=== PATIENT | female | born 1960 | race Caucasian/White ===

== ENCOUNTER → 2017-11-03 21:11 | Outpatient (CLI) | payer BC, SELFPAY ==
[2017-11-03 21:52] LABS: BUN 28 mg/dL (7-18); Creatinine, Serum 1.95 mg/dL (0.55-1.02); EST Glomerular Filtration Rate 28 mL/min (>60); Glucose 204 mg/dL (74-106)
[2017-11-03 21:53] LABS: ALB/GLOB Ratio 1.1 RATIO (0.9-2.4); AST(SGOT) 43 U/L (15-37); Alanine Aminotransfer ALT/SGPT 45 U/L (13-56); Albumin, Serum 3.8 g/dL (3.2-5.0); Alkaline Phosphatase 67 U/L (45-117); Anion Gap 11 (5-15); BUN/Creat Ratio 14.4 RATIO (10-20); Chloride 109 mmol/L (98-107); Cholesterol 195 mg/dL (200); Est Glom Filt Rate - Afr Amer 34 mL/min (>60); Globulin 3.5 g/dL (2.2-4.2); High Density Lipoprotein 32 mg/dL; Potassium 4.2 mmol/L (3.5-5.1); Protein, Total 7.3 g/dL (6.4-8.2); Sodium Level 145 mmol/L (136-145); Triglycerides 582 mg/dL
== END ==
PROVIDERS: Visit Provider Nurse Practitioner
DX: E78.00 Pure hypercholesterolemia, unspecified (principal); F41.9 Anxiety disorder, unspecified
CPT/HCPCS: 80053; 80061

== ENCOUNTER → 2018-05-14 21:46 | Outpatient (CLI) | payer BC, SELFPAY ==
[2017-11-03 18:29] VITALS: BMI 29.3
[2018-05-14 22:09] LABS: Cholesterol 197 mg/dL (200); High Density Lipoprotein 37 mg/dL; Triglycerides 349 mg/dL; Very Low Density Lipoprotein 70 mg/dL (5-40)
== END ==
PROVIDERS: Referring Provider Nurse Practitioner; Visit Provider Nurse Practitioner
DX: E78.1 Pure hyperglyceridemia (principal)
CPT/HCPCS: 80061

== ENCOUNTER → 2018-12-02 21:36 | Outpatient (CLI) | payer BC, SELFPAY ==
[2018-12-02 17:03] VITALS: BMI 29.4
[2018-12-02 21:43] LABS: Basophil# 0.03 X10^3/uL; Basophil% 0.5 % (0-1); Eosinophil# 0.43 X10^3/uL; Eosinophils% 7.8 % (0-5); Hematocrit 40.1 % (37-47); Hemoglobin 13.6 g/dL (12.0-15.0); Lymphocyte % 27.2 % (19-41); Mean Corp Hgb Conc 33.9 g/dL (32-36); Mean Corpuscular Hgb 34.6 pg (27.0-32.0); Mean Platelet Vol. 10.6 fl (6.2-12.0); Monocyte# 0.55 X10^3/uL; NRBC Flagged by Analyzer 0 % (0-5); Neutrophil % 54.3 % (47-70); Platelet Count 169 K/mm3 (150-450); RBC Distribution Width CV 12.5 % (11.6-14.6); RBC Distribution Width SD 47.3 fl (35.1-43.9); Red Blood Count 3.93 M/mm3 (4.2-5.4); White Blood Count 5.5 K/mm3 (4.4-11.0)
[2018-12-02 21:56] LABS: ALB/GLOB Ratio 1.1 RATIO (0.9-2.4); AST(SGOT) 42 U/L (15-37); Alanine Aminotransfer ALT/SGPT 43 U/L (13-56); Albumin, Serum 3.8 g/dL (3.2-5.0); Alkaline Phosphatase 61 U/L (45-117); Anion Gap 6 (5-15); BUN 23 mg/dL (7-18); BUN/Creat Ratio 11.7 RATIO (10-20); Calcium,Total 9.5 mg/dL (8.5-10.1); Chloride 105 mmol/L (98-107); Cholesterol 168 mg/dL (200); Creatinine, Serum 1.96 mg/dL (0.55-1.02); EST Glomerular Filtration Rate 28 mL/min (>60); Est Glom Filt Rate - Afr Amer 34 mL/min (>60); Globulin 3.6 g/dL (2.2-4.2); Glucose 125 mg/dL (74-106); High Density Lipoprotein 37 mg/dL; Potassium 4.4 mmol/L (3.5-5.1); Protein, Total 7.4 g/dL (6.4-8.2); Sodium Level 137 mmol/L (136-145); Triglycerides 245 mg/dL; Very Low Density Lipoprotein 49 mg/dL (5-40)
== END ==
PROVIDERS: Referring Provider Nurse Practitioner; Visit Provider Nurse Practitioner
DX: I10 Essential (primary) hypertension (principal); E78.5 Hyperlipidemia, unspecified
CPT/HCPCS: 80053; 80061; 85025

== ENCOUNTER → 2019-11-30 | Outpatient (CLI) | payer BC, SELFPAY ==
[2018-12-02 17:03] VITALS: BMI 29.4
[2019-11-30 21:40] LABS: Absolute Lymphocyte Count 1.28 X10^3/uL (0.83-4.51); Absolute Neutrophil Count 2.7 X10^3/uL (2.0-7.7); Basophil# 0.02 X10^3/uL; Basophil% 0.4 % (0-1); Eosinophil# 0.48 X10^3/uL; Eosinophils% 9.6 % (0-5); Hematocrit 37.7 % (37-47); Hemoglobin 12.8 g/dL (12.0-15.0); Lymphocyte # 1.28 X10^3/ul (4.0); Lymphocyte % 25.6 % (19-41); Mean Corpuscular Hgb 35.9 pg (27.0-32.0); Mean Corpuscular Volume 105.6 fL (81-99); Mean Platelet Vol. 10.5 fl (6.2-12.0); Monocyte# 0.52 X10^3/uL; Monocyte% 10.4 % (0-10); NRBC Flagged by Analyzer 0 % (0-5); Neutrophil # 2.69 X10^3/uL (2.7-7.7); Neutrophil % 53.8 % (47-70); Platelet Count 192 K/mm3 (150-450); RBC Distribution Width CV 12.7 % (11.6-14.6); RBC Distribution Width SD 49.3 fl (35.1-43.9); Red Blood Count 3.57 M/mm3 (4.2-5.4)
[2019-11-30 21:58] LABS: ALB/GLOB Ratio 1.1 RATIO (0.9-2.4); AST(SGOT) 49 U/L (15-37); Alanine Aminotransfer ALT/SGPT 47 U/L (13-56); Albumin, Serum 3.6 g/dL (3.2-5.0); Alkaline Phosphatase 52 U/L (45-117); Anion Gap 8 (5-15); BUN 16 mg/dL (7-18); BUN/Creat Ratio 9.3 RATIO (10-20); Calcium,Total 9.4 mg/dL (8.5-10.1); Chloride 108 mmol/L (98-107); Cholesterol 197 mg/dL (200); Creatinine, Serum 1.72 mg/dL (0.55-1.02); EST Glomerular Filtration Rate 32 mL/min (>60); Est Glom Filt Rate - Afr Amer 39 mL/min (>60); Globulin 3.3 g/dL (2.2-4.2); Glucose 110 mg/dL (74-106); High Density Lipoprotein 21 mg/dL; Potassium 4.3 mmol/L (3.5-5.1); Protein, Total 6.9 g/dL (6.4-8.2); Sodium Level 139 mmol/L (136-145); Triglycerides 467 mg/dL
== END | disposition home or self-care (01) ==
PROVIDERS: Visit Provider Nurse Practitioner
DX: I10 Essential (primary) hypertension (principal); E78.5 Hyperlipidemia, unspecified
CPT/HCPCS: 80053; 80061; 85025

== ENCOUNTER → 2020-03-13 | Outpatient (CLI) | payer BC, SELFPAY ==
[2020-03-13 15:53] VITALS: BMI 30.4
[2020-03-13 22:38] LABS: Absolute Lymphocyte Count 1.74 X10^3/uL (0.83-4.51); Absolute Neutrophil Count 2.5 X10^3/uL (2.0-7.7); Basophil# 0.03 X10^3/uL; Basophil% 0.6 % (0-1); Eosinophil# 0.39 X10^3/uL; Eosinophils% 7.4 % (0-5); Hematocrit 40.7 % (37-47); Hemoglobin 13.8 g/dL (12.0-15.0); Lymphocyte # 1.74 X10^3/ul (4.0); Mean Corp Hgb Conc 33.9 g/dL (32-36); Mean Corpuscular Hgb 35.8 pg (27.0-32.0); Mean Corpuscular Volume 105.4 fL (81-99); Mean Platelet Vol. 11.2 fl (6.2-12.0); Monocyte# 0.62 X10^3/uL; Monocyte% 11.8 % (0-10); NRBC Flagged by Analyzer 0 % (0-5); Neutrophil # 2.46 X10^3/uL (2.7-7.7); Neutrophil % 46.6 % (47-70); Platelet Count 171 K/mm3 (150-450); RBC Distribution Width CV 12.5 % (11.6-14.6); RBC Distribution Width SD 48.2 fl (35.1-43.9); Red Blood Count 3.86 M/mm3 (4.2-5.4); White Blood Count 5.3 K/mm3 (4.4-11.0)
[2020-03-13 23:09] LABS: ALB/GLOB Ratio 1.2 RATIO (0.9-2.4); AST(SGOT) 52 U/L (15-37); Alanine Aminotransfer ALT/SGPT 53 U/L (13-56); Albumin, Serum 3.7 g/dL (3.2-5.0); Alkaline Phosphatase 64 U/L (45-117); Anion Gap 8 (5-15); BUN 13 mg/dL (7-18); BUN/Creat Ratio 9.8 RATIO (10-20); Calcium,Total 9.6 mg/dL (8.5-10.1); Chloride 108 mmol/L (98-107); Cholesterol 151 mg/dL (200); Creatinine, Serum 1.32 mg/dL (0.55-1.02); EST Glomerular Filtration Rate 44 mL/min (>60); Est Glom Filt Rate - Afr Amer 53 mL/min (>60); Globulin 3.2 g/dL (2.2-4.2); Glucose 135 mg/dL (74-106); High Density Lipoprotein 27 mg/dL; Protein, Total 6.9 g/dL (6.4-8.2); Sodium Level 139 mmol/L (136-145); Triglycerides 328 mg/dL; Very Low Density Lipoprotein 66 mg/dL (5-40)
== END | disposition home or self-care (01) ==
PROVIDERS: Referring Provider Nurse Practitioner; Visit Provider Nurse Practitioner
DX: I10 Essential (primary) hypertension (principal); E78.5 Hyperlipidemia, unspecified
CPT/HCPCS: 80053; 80061; 85025

== ENCOUNTER → 2020-12-07 | Outpatient (CLI) | payer BC, SELFPAY ==
[2020-12-07 23:17] LABS: Absolute Lymphocyte Count 1.78 X10^3/uL (0.83-4.51); Absolute Neutrophil Count 3.6 X10^3/uL (2.0-7.7); Basophil# 0.04 X10^3/uL; Basophil% 0.6 % (0-1); Eosinophil# 0.39 X10^3/uL; Eosinophils% 6.1 % (0-5); Hematocrit 40.2 % (37-47); Hemoglobin 13.7 g/dL (12.0-15.0); Lymphocyte # 1.78 X10^3/ul (0.83-4.51); Lymphocyte % 27.9 % (19-41); Mean Corp Hgb Conc 34.1 g/dL (32-36); Mean Corpuscular Hgb 35.4 pg (27.0-32.0); Mean Corpuscular Volume 103.9 fL (81-99); Mean Platelet Vol. 11.2 fl (6.2-12.0); Monocyte# 0.58 X10^3/uL; Monocyte% 9.1 % (0-10); NRBC Flagged by Analyzer 0 % (0-5); Neutrophil # 3.56 X10^3/uL (2.7-7.7); Neutrophil % 55.8 % (47-70); Platelet Count 165 K/mm3 (150-450); RBC Distribution Width CV 12.4 % (11.6-14.6); RBC Distribution Width SD 47.1 fl (35.1-43.9); Red Blood Count 3.87 M/mm3 (4.2-5.4); White Blood Count 6.4 K/mm3 (4.4-11.0)
[2020-12-07 23:24] LABS: AST(SGOT) 57 U/L (15-37); Alanine Aminotransfer ALT/SGPT 44 U/L (13-56); Albumin, Serum 3.6 g/dL (3.2-5.0); Alkaline Phosphatase 60 U/L (45-117); Anion Gap 8 (5-15); BUN 17 mg/dL (7-18); BUN/Creat Ratio 11.6 RATIO (10-20); Calcium,Total 9.2 mg/dL (8.5-10.1); Chloride 109 mmol/L (98-107); Cholesterol 165 mg/dL (200); Creatinine, Serum 1.46 mg/dL (0.55-1.02); EST Glomerular Filtration Rate 39 mL/min (>60); Est Glom Filt Rate - Afr Amer 47 mL/min (>60); Globulin 3.5 g/dL (2.2-4.2); Glucose 127 mg/dL (74-106); High Density Lipoprotein 34 mg/dL; Potassium 3.7 mmol/L (3.5-5.1); Protein, Total 7.1 g/dL (6.4-8.2); Sodium Level 139 mmol/L (136-145); Triglycerides 299 mg/dL; Very Low Density Lipoprotein 60 mg/dL (5-40)
[2020-12-07 23:49] LABS: Hemoglobin A1c 5.2 % (3.8-5.6)
== END | disposition home or self-care (01) ==
PROVIDERS: PCP Nurse Practitioner; Referring Provider Nurse Practitioner; Visit Provider Nurse Practitioner
DX: I10 Essential (primary) hypertension (principal); E78.2 Mixed hyperlipidemia; R73.9 Hyperglycemia, unspecified
CPT/HCPCS: 80053; 80061; 83036; 85025

== ENCOUNTER → 2021-12-03 | Outpatient (CLI) | payer BC, SELFPAY ==
[2021-12-03 22:34] LABS: Absolute Lymphocyte Count 1.68 X10^3/uL (0.83-4.51); Basophil# 0.04 X10^3/uL; Basophil% 0.5 % (0-1); Eosinophil# 0.42 X10^3/uL; Eosinophils% 4.7 % (0-5); Hematocrit 40.2 % (37-47); Lymphocyte # 1.68 X10^3/ul (0.83-4.51); Mean Corp Hgb Conc 34.8 g/dL (32-36); Mean Corpuscular Hgb 36.4 pg (27.0-32.0); Mean Corpuscular Volume 104.4 fL (81-99); Mean Platelet Vol. 11.8 fl (6.2-12.0); Monocyte# 0.73 X10^3/uL; Monocyte% 8.2 % (0-10); NRBC Flagged by Analyzer 0 % (0-5); Neutrophil # 5.96 X10^3/uL (2.7-7.7); Neutrophil % 67.3 % (47-70); Platelet Count 178 K/mm3 (150-450); RBC Distribution Width CV 13.4 % (11.6-14.6); RBC Distribution Width SD 50.6 fl (35.1-43.9); Red Blood Count 3.85 M/mm3 (4.2-5.4); White Blood Count 8.9 K/mm3 (4.4-11.0)
[2021-12-03 22:52] LABS: ALB/GLOB Ratio 1.1 RATIO (0.9-2.4); AST(SGOT) 47 U/L (15-37); Alanine Aminotransfer ALT/SGPT 39 U/L (13-56); Alkaline Phosphatase 60 U/L (45-117); Anion Gap 10 (5-15); BUN 18 mg/dL (7-18); BUN/Creat Ratio 11.2 RATIO (10-20); Calcium,Total 11.7 mg/dL (8.5-10.1); Chloride 105 mmol/L (98-107); Cholesterol 187 mg/dL (200); Creatinine, Serum 1.61 mg/dL (0.55-1.02); EST Glomerular Filtration Rate 35 mL/min (>60); Est Glom Filt Rate - Afr Amer 42 mL/min (>60); Globulin 3.8 g/dL (2.2-4.2); Glucose 142 mg/dL (74-106); High Density Lipoprotein 34 mg/dL; Potassium 4.2 mmol/L (3.5-5.1); Protein, Total 7.8 g/dL (6.4-8.2); Sodium Level 139 mmol/L (136-145); Triglycerides 250 mg/dL; Very Low Density Lipoprotein 50 mg/dL (5-40)
== END | disposition home or self-care (01) ==
PROVIDERS: PCP Nurse Practitioner; Visit Provider Nurse Practitioner
DX: E78.2 Mixed hyperlipidemia (principal); I10 Essential (primary) hypertension
CPT/HCPCS: 80053; 80061; 85025

== ENCOUNTER → 2022-11-27 | Outpatient (CLI) | payer BC, SELFPAY ==
[2022-11-27 22:52] LABS: Absolute Neutrophil Count 4.5 X10^3/uL (2.0-7.7); Basophil# 0.04 X10^3/uL; Basophil% 0.5 % (0-1); Eosinophil# 0.66 X10^3/uL; Eosinophils% 8.6 % (0-5); Hematocrit 40.7 % (37-47); Hemoglobin 13.5 g/dL (12.0-15.0); Lymphocyte % 23.6 % (19-41); Mean Corp Hgb Conc 33.2 g/dL (32-36); Mean Corpuscular Volume 102.5 fL (81-99); Mean Platelet Vol. 11.3 fl (6.2-12.0); Monocyte# 0.58 X10^3/uL; Monocyte% 7.6 % (0-10); NRBC Flagged by Analyzer 0 % (0-5); Neutrophil # 4.51 X10^3/uL (2.7-7.7); Platelet Count 194 K/mm3 (150-450); RBC Distribution Width CV 12.2 % (11.6-14.6); RBC Distribution Width SD 45.8 fl (35.1-43.9); Red Blood Count 3.97 M/mm3 (4.2-5.4); White Blood Count 7.6 K/mm3 (4.4-11.0)
[2022-11-27 23:11] LABS: ALB/GLOB Ratio 1.2 RATIO (0.9-2.4); AST(SGOT) 56 U/L (15-37); Alanine Aminotransfer ALT/SGPT 47 U/L (13-56); Albumin, Serum 3.9 g/dL (3.2-5.0); Alkaline Phosphatase 73 U/L (45-117); Anion Gap 7 (5-15); BUN 14 mg/dL (7-18); BUN/Creat Ratio 10.4 RATIO (10-20); Calcium,Total 9.7 mg/dL (8.5-10.1); Chloride 105 mmol/L (98-107); Cholesterol 174 mg/dL (200); Creatinine, Serum 1.34 mg/dL (0.55-1.02); EST Glomerular Filtration Rate 43 mL/min (>60); Est Glom Filt Rate - Afr Amer 52 mL/min (>60); Globulin 3.3 g/dL (2.2-4.2); Glucose 133 mg/dL (74-106); High Density Lipoprotein 26 mg/dL; Potassium 4.8 mmol/L (3.5-5.1); Protein, Total 7.2 g/dL (6.4-8.2); Sodium Level 137 mmol/L (136-145); Triglycerides 357 mg/dL; Very Low Density Lipoprotein 71 mg/dL (5-40)
[2022-11-28 14:02] LABS: Hemoglobin A1c 5.5 % (3.8-5.6)
== END | disposition home or self-care (01) ==
PROVIDERS: PCP Nurse Practitioner; Referring Provider Nurse Practitioner; Visit Provider Nurse Practitioner
DX: Z00.00 Encounter for general adult medical examination without abnormal findings (principal); R73.9 Hyperglycemia, unspecified
CPT/HCPCS: 80053; 80061; 83036; 85025

== ENCOUNTER → 2023-05-11 | Outpatient (CLI) | payer BC, SELFPAY ==
[2023-05-11 22:22] LABS: Hemoglobin A1c 5.7 % (3.8-5.6)
[2023-05-11 22:30] LABS: ALB/GLOB Ratio 1.2 RATIO (0.9-2.4); AST(SGOT) 37 U/L (15-37); Alanine Aminotransfer ALT/SGPT 43 U/L (13-56); Albumin, Serum 3.9 g/dL (3.2-5.0); Alkaline Phosphatase 76 U/L (45-117); Anion Gap 7 (5-15); BUN 20 mg/dL (7-18); BUN/Creat Ratio 16.5 RATIO (10-20); CRP, High Sensitivity Cardiac 4.04 mg/L; Calcium,Total 9.3 mg/dL (8.5-10.1); Chloride 107 mmol/L (98-107); Creatinine, Serum 1.21 mg/dL (0.55-1.02); EST Glomerular Filtration Rate 48 mL/min (>60); Est Glom Filt Rate - Afr Amer 58 mL/min (>60); Globulin 3.2 g/dL (2.2-4.2); Glucose 205 mg/dL (74-106); Potassium 3.9 mmol/L (3.5-5.1); Protein, Total 7.1 g/dL (6.4-8.2); Sodium Level 138 mmol/L (136-145); Thyroid Stim Hormone (TSH) 2.06 uIU/mL (0.358-3.74); Troponin-I HS 7 pg/mL (3.0-54.0)
--- OUTSIDE RECORDS SUMMARY | 2023-05-12 00:30 | XMS RPT_ITS | CCD ---
Author Name Unknown Address [address] [place] [address] Organization [facility] Care Team Providers Care Smoking Tobacco Packing Machine Hand Name Role Phone Sohail ORDONEZ.Philippe ESCAMILLA Primary Care Provide r PHILIPPE SAUCEDA Referring Unavailable PHILIPPE SAUCEDA Primary Care Unavailable Allergies Allergy Classification Reported Allergen(s) Allergy Type Date of Onset Reaction(s) Facility (5 sources) Codeine; Translations: [CODEINE] Drug Allergy 8 GI Upset, Vomiting [facility] Work Phone: (5 sources) Sulfamethoxazole / Trimethoprim; Translations: [SULFAMETHOXAZOLE-TR IMETHOPRIM] Drug Allergy 6 GI Upset, Other: See Comments [facility] Medications Completed/Discontinued Medications Medication Drug Class(es) Dates Sig (Normalized) Sig (Original) aspirin 325 mg delayed release oral tablet (4 sources) Platelet Aggregation Inhibitor, Nonsteroidal Anti-inflammatory Drug Start: 08-11-2007 aspirin(ECOTRIN 325 MG TAB) Take one(1) tablet daily. 0 08/11/2007 Active Problems Problem Classification Problem Date Documented Da te Episodic/Chronic Coronary atherosclerosis and other heart disease (4 sources) Coronary arteriosclerosis; Translations: [Atherosclerotic heart disease of [place] coronary artery without angina pectoris] Onset: 4 03-11-2021 Chronic Diabetes mellitus without complication (4 sources) Type 2 diabetes mellitus; Translations: [Type 2 diabetes mellitus without complications] Onset: 9 03-11-2021 Chronic Disorders of lipid metabolism (4 sources) Hyperlipidemia; Translations: [Hyperlipidemia, unspecified] Onset: 1 07-03-2010 Chronic Esophageal disorders (4 sources) Gastroesophageal reflux disease; Translations: [Gastro-esophageal reflux disease without esophagitis] 07-03-2010 Chronic Essential hypertension (4 sources) Hypertensive disorder; Translations: [Essential (primary) hypertension] Onset: 1 07-03-2010 Chronic Nonmalignant breast conditions (4 sources) Fibrocystic disease of breast; Translations: [Diffuse cystic mastopathy of unspecified breast] Onset: 6 04-27-2015 Chronic Other gastrointestinal disorders (4 sources) Irritable bowel syndrome with diarrhea; Translations: [Irritable bowel syndrome with diarrhea] Onset: 1 07-03-2010 Chronic Other nutritional; endocrine; and metabolic disorders (4 sources) Hypomagnesemia; Translations: [Hypomagnesemia] Onset: 1 07-03-2010 Chronic Results Test Name Value Interpretation Reference Range Facil ity Encounters Encounter Date Encounter Type Care Provider Facility Start: 12-26-2022 Documentation procedure Mammog jorge l Coordinator [facility] Start: 12-26-2022 Letter encounter Mammography Coordinator [facility]CI[facility] AREA NOT LISTED Start: 12-25-2022 ambulatory PHILIPPE Najera ity:[facility] Start: 12-25-2022 End: 12-25-2022 Subsequent hospital visit by physician Mammo/Bone Density [facility] Procedures Date Procedure Procedure Detail Performing Clinician Start: 12-17-2021 Mammography Mammograph y Coordinator Start: 12-13-2020 [facility]ography [facility] Start: 10-14-2010 Colonoscopy [facility] Plan of Treatment Date Care Activity Detail Author Start: 12-26-2023 Mammography Mammogram Screening [facility] Start: 12-17-2022 Mammography [facility] Start: 11-14-2022 Covid-19 Vaccine ( season) Covid-19 Vaccine ( season) [facility] Start: 11-14-2022 Influenza vaccination Influenza Vacc ine (#1) [facility] Start: 03-16-2022 Depression Assessment Depression Ass essment [facility] Start: 12-13-2021 Mammography MAMMOGRAM [facility] Start: 11-14-2021 Influenza vaccination INFLUENZA (#1) [facility] Start: 03-16-2021 DEPRESSION ASSESSMENT DEPRESSION ASS ESSMENT [facility] Start: 2021 Hepatitis B Vaccine (1 of 3 - Risk 3-dose series) Hepatitis B Vaccine (1 of 3 - Risk 3-dose series) [facility] Start: 10-14-2020 Colonoscopy COLONOSCOPY [facility] Start: 10-14-2020 COLORECTAL CANCER SCREENING COLORECTAL CANCER SCREENING [facility] Start: 10-08-2020 COVID-19 VACCINE (3 - Booster for Moderna series) COVID-19 VACCINE (3 - Booster for Moderna series) [facility] Start: 09-19-2020 PAP TESTING PAP TESTING [facility] Start: 03-16-2018 Urine microalbumin profile [facility] Start: 05-06-2017 Hepatitis B surface antibody level LDL CHOLESTEROL [facility] Start: 11-03-2016 Hemoglobin A1c/Hemoglobin.total in Blood HBA1C [facility] Start: 09-22-2016 FECAL OCCULT BLOOD FECAL OCCULT BLOO D [facility] Start: 03-28-2016 Hepatitis C antibody , confirmatory test DILATED RETINAL EXAM [facility] Start: 05-28-2013 Hepatitis B screening URINE AL BUMIN:CREATININE RATIO [facility] Start: 2011 Influenza vaccination LUNG CANCER [facility] Start: 2011 SHINGRIX VACCINE (1 of 2) SHINGRIX V ACCINE (1 of 2) [facility] Start: 03-16-2010 PNEUMOCOCCAL (2 - PCV) PNEUMOCOCCAL (2 - PCV) [facility] Start: 03-16-2010 Pneumococcal vaccination Pneum ococcal Vaccine (2 - PCV) [facility] Start: 2006 COLOGUARD (FIT-DNA) COLOGUARD (FIT-D NA) [facility] Start: [address] COLONOGRAPHY [facility] Start: 2006 SIGMOIDOSCOPY SIGMOIDOSCOPY [facility] Start: 1991 HPV TESTING HPV TESTING [facility] Start: 1979 ANNUAL PCP TEAM BEAUTY SHOP MANAGER SUE DISEASE VISIT ANNUAL PCP TEAM CHRONIC DISEASE VISIT [facility] Start: 1979 BP CONTROLLED (<130/80) BP CONTROLLE D (<130/80) [facility] Start: 1979 HEPATITIS C SCREENING HEPATITIS C [facility] Start: 1979 HIV SCREENING HIV SCREENING [facility] Start: 1971 3 comp foot exam completed DIABETIC FOOT EXAM [facility] Start: 1971 Hepatitis B screening Urine Al bumin:Creatinine Ratio [facility] Immunizations Immunization Date Immunization Notes Care Provider Juliana traylormarshall 11-27-2014 influenza virus vacc ine, unspecified [facility] 2012 influenza virus vacc ine, unspecified formulation [facility] 03-16-2009 pneumococcal polysac charide vaccine, 23 valent [facility] 03-16-2008 tetanus toxoid, redu yani diphtheria toxoid, and acellular pertussis vaccine, adsorbed [facility] Payers Date Payer Category Payer Unknown [employer] PPO [id number] 2018-Present [phone] [address] [place] [address] PPO [id number] 2018 Unknown [id number] Social History Date Type Detail Facility Start: 03-16-1974 Tobacco smoking stat us AKIS Smokes tobacco daily [facility] Start: 03-16-1974 History of tobacco use Cigarette Smo ker [facility] Start: 12-04-2015 End: 12-25-2022 Cigarettes smoked current (pack per day) - Reported 1.5 [facility] Start: 12-04-2015 Tobacco use and exposure Smoke less tobacco non-user [facility] Start: 10-29-2021 Alcohol intake Current drinke r of alcohol (finding) [facility] Start: 06-29-2007 History SDOH Alcohol Comment WEEKLY [facility] Start: 03-19-2015 Tobacco Comment smokes 1 1/2 p pd since age 15 years [facility] Start: 1960 Sex Assigned At Not on file [facility] Start: 12-07-2021 End: 12-17-2021 Exposure to SARS-CoV-2 (event) Not sure [facility] Start: 10-29-2021 End: 12-25-2022 Tobacco use panel [facility] National Score (1-10 0), lower number is lower risk 51 [facility] Note 12-26-2022 Letter - Coordinator, Mammography - 12/26/2022 2:24 PM EDT Note Date & Type Note Facility 12-26-2022 Miscellaneous Notes Formattin g of this note might be different from the original. [facility] [address] [place] [address] December 26, 2022 PID: [id number] Alexa Salazar [address] [place] [address] Dear Ms. Salazar, We are pleased to inform you that the results of your recent breast imaging exam on 12/25/2022 are normal. Early detection of cancer is very important. We also understand recommendations regarding breast cancer screening are controversial. Please discuss with your primary care provider which strategy is best for you and whether a mammogram is right for you. Your imaging studies and report will be kept on file at [facility] as part of your permanent medical record and are available for your continuing care. Thank you for allowing us to help in meeting your health care needs. Sincerely, Dr. Davis Interpreting Radiologist [facility] (Normal over 40) documented in this encounter [facility] Progress note 12-25-2022 Note Date & Type Note Facility 12-25-2022 Note HNO ID: [id number] Author: Anika Amador RT(Po) Service: Radiology Author Type: Technologist Type: Progress Notes Filed: 12/25/2022 5:15 PM Note Text: Radiology Service Progress Note PATIENT NAME: Alexa Salazar DATE OF SERVICE: December 25, 2022 TIME: 5:15 PM PATIENT IDENTITY VERIFICATION COMPLETED USING TWO (2) IDENTIFIERS: Name and Date of confirmed by patient verbally. FALL SCREENING: Has the patient had 2 falls in the last year or 1 fall with injury or currently using an Ambulatory Assistive Device (Walker, Cane, Wheelchair, Crutches, etc.)? No PATIENT GENDER DATA: Female. status: : No status: N/A PATIENT RELEVANT IMPLANT DATA REVIEWED: Not Applicable RADIOLOGY DEPARTMENT: Mammography PERIPHERAL IV DATA: Not applicable SIGNED BY: RT Ines(Po) December 25, 2022 5:15 PM [facility] History of Present illness Narrative 12-25-2022 Anika Amador RT(R) - 12/25/2022 5:00 PM EDT Note Date & Type Note Facility 12-25-2022 History of Presen t illness Narrative Radiology Service Progress Note PATIENT NAME: Alexa Salazar DATE OF SERVICE: December 25, 2022 TIME: 5:15 PM PATIENT IDENTITY VERIFICATION COMPLETED USING TWO (2) IDENTIFIERS: Name and Date of confirmed by patient verbally. FALL SCREENING: Has the patient had 2 falls in the last year or 1 fall with injury or currently using an Ambulatory Assistive Device (Walker, Cane, Wheelchair, Crutches, etc.)? No PATIENT GENDER DATA: Female. status: : No status: N/A PATIENT RELEVANT IMPLANT DATA REVIEWED: Not Applicable RADIOLOGY DEPARTMENT: Mammography PERIPHERAL IV DATA: Not applicable SIGNED BY: RT Ines(Po) December 25, 2022 5:15 PM documented in this encounter [facility] Note 12-18-2021 Letter - Mammography Coordinator - 12/18/2021 10:49 AM EDT Note Date & Type Note Facility 12-18-2021 Miscellaneous Notes Formattin g of this note might be different from the original. [address] [address] December 18, 2021 PID: [id number] Alexa Salazar [address] [place] [address] Dear Ms. Salazar, We are pleased to inform you that the results of your recent breast imaging exam on 12/17/2021 are normal. Early detection of cancer is very important. We also understand recommendations regarding breast cancer screening are controversial. Please discuss with your primary care provider which strategy is best for you and whether a mammogram is right for you. Your imaging studies and report will be kept on file at [facility] as part of your permanent medical record and are available for your continuing care. Thank you for allowing us to help in meeting your health care needs. Sincerely, Dr. Quinn Interpreting Radiologist [facility] (Normal over 40) documented in this encounter [facility] History of Present illness Narrative 12-17-2021 JEFRY Chacon) - 12/17/2021 4:30 PM EDT Note Date & Type Note Facility 12-17-2021 History of Presen t illness Narrative Radiology Service Progress Note PATIENT NAME: Alexa Salazar DATE OF SERVICE: December 17, 2021 TIME: 4:51 PM PATIENT IDENTITY VERIFICATION COMPLETED USING TWO (2) IDENTIFIERS: Name and Date of confirmed by patient verbally. FALL SCREENING: Has the patient had 2 falls in the last year or 1 fall with injury or currently using an Ambulatory Assistive Device (Walker, Cane, Wheelchair, Crutches, etc.)? No PATIENT GENDER DATA: Female. status: : No status: N/A PATIENT RELEVANT IMPLANT DATA REVIEWED: Not Applicable RADIOLOGY DEPARTMENT: Mammography PERIPHERAL IV DATA: Not applicable SIGNED BY: JEFRY Cahcon) December 17, 2021 4:51 PM documented in this encounter [facility] Progress note 12-13-2020 Note Date & Type Note Facility 12-13-2020 Note HNO ID: [id number] Author: RT Chacon (R) Service: ? Author Type: Technologist Type: Progress Notes Filed: 12/13/2020 3:51 PM Note Text: Radiology Service Progress Note PATIENT NAME: Alexa Salazar DATE OF SERVICE: December 13, 2020 TIME: 3:51 PM PATIENT IDENTITY VERIFICATION COMPLETED USING TWO (2) IDENTIFIERS: Name and Date of confirmed by patient verbally. FALL SCREENING: Has the patient had 2 falls in the last year or 1 fall with injury or currently using an Ambulatory Assistive Device (Walker, Cane, Wheelchair, Crutches, etc.)? No PATIENT GENDER DATA: Female. status: : No status: N/A PATIENT RELEVANT IMPLANT DATA REVIEWED: Not Applicable RADIOLOGY DEPARTMENT: Mammography PERIPHERAL IV DATA: Not applicable SIGNED BY: JEFRY Chacon) December 13, 2020 3:51 PM [facility] Summary Purpose Family History No Family History Records FoundNo Family History Records FoundNo Family History Records Found [place] Directives No Advanced Directives Records FoundNo Advanced Directives Records FoundNo Advanced Directives Records Found Additional Source Comments INFORMATION SOURCE (unrecogn ized section and content) DATE CREATED AUTHOR AUTHOR'S ORGANIZ ATION 04/09/2021 [facility] DATE CREATED AUTHOR AUTHOR'S ORGANIZ ATION 12/31/2022 [facility] Source Comments (unrecognize d section and content) In the event this informatio n is protected by the Federal Confidentiality of Alcohol and Drug Abuse Patient Records regulations: The Federal rules restrict any use of the information to criminally investigate or prosecute any alcohol or drug abuse patient.[facility] the event this information is protected by the Federal Confidentiality of Alcohol and Drug Abuse Patient Records regulations: The Federal rules restrict any use of the information to criminally investigate or prosecute any alcohol or drug abuse patient.[facility] the event this information is protected by the Federal Confidentiality of Alcohol and Drug Abuse Patient Records regulations: The Federal rules restrict any use of the information to criminally investigate or prosecute any alcohol or drug abuse patient.[facility] the event this information is protected by the Federal Confidentiality of Alcohol and Drug Abuse Patient Records regulations: The Federal rules restrict any use of the information to criminally investigate or prosecute any alcohol or drug abuse patient.[facility] Care Teams (unrecognized sec tion and content) Smoking Tobacco Packing Machine Hand Relationship Specialty Start Date End Date Philippe Sauceda, TECHNICAL SERVICE REPRESENTATIVE.TEST PULLER [address] [place], [place] [id number] PCP - General Family Medicine 10/27/17 Smoking Tobacco Packing Machine Hand Relationship Specialty Start Date End Date Philippe Sauceda, TECHNICAL SERVICE REPRESENTATIVE.TEST PULLER [address] [place] [address] PCP - General Family Medicine 10/27/17 Smoking Tobacco Packing Machine Hand Relationship Specialty Start Date End Date Philippe Sauceda, TECHNICAL SERVICE REPRESENTATIVE.TEST PULLER [address] [place], [place] [id number] PCP - General Family Medicine 10/27/17 FOR RECORDS PERTAINING TO PATIENTS WHO ARE OR HAVE BEEN ENROLLED IN A CHEMICAL DEPENDENCY/SUBSTANCEABUSE PROGRAM, SOME INFORMATION MAY BE OMITTED. This clinical summary was aggregated from multiple sources. Caution should be exercised in using it in the provision of clinical care. This summary normalizes information from multiple sources, and as a consequence, information in this document may materially change the coding, format and clinical context of patient data. In addition, data may be omitted in some cases. CLINICAL DECISIONS SHOULD BE BASED ON THE PRIMARY CLINICAL RECORDS. [facility]. provides no warranty or guarantee of the accuracy or completeness of information in this document.
== END | disposition home or self-care (01) ==
PROVIDERS: PCP Nurse Practitioner; Visit Provider Nurse Practitioner
DX: R07.9 Chest pain, unspecified (principal); R10.13 Epigastric pain
CPT/HCPCS: 80053; 83036; 84443; 84484; 86141

== ENCOUNTER → 2023-11-12 | Outpatient (CLI) | payer BC, SELFPAY | END | disposition home or self-care (01) | PROVIDERS: PCP Nurse Practitioner; Referring Provider Nurse Practitioner; Visit Provider Nurse Practitioner | DX: N30.90 Cystitis, unspecified without hematuria (principal) | CPT/HCPCS: 87086; 87088 ==

== ENCOUNTER → 2023-12-10 | Outpatient (CLI) | payer BC, SELFPAY ==
[2023-12-10 21:56] LABS: Absolute Lymphocyte Count 2.46 X10^3/uL (0.83-4.51); Absolute Neutrophil Count 6.2 X10^3/uL (2.0-7.7); Basophil# 0.07 X10^3/uL; Basophil% 0.7 % (0-1); Eosinophil# 0.84 X10^3/uL; Eosinophils% 8.1 % (0-5); Hematocrit 41.6 % (37-47); Hemoglobin 14.4 g/dL (12.0-15.0); Lymphocyte # 2.46 X10^3/ul (0.83-4.51); Lymphocyte % 23.8 % (19-41); Mean Corp Hgb Conc 34.6 g/dL (32-36); Mean Corpuscular Hgb 33.7 pg (27.0-32.0); Mean Corpuscular Volume 97.4 fL (81-99); Mean Platelet Vol. 10.8 fl (6.2-12.0); Monocyte# 0.73 X10^3/uL; Monocyte% 7.1 % (0-10); NRBC Flagged by Analyzer 0 % (0-5); Neutrophil # 6.17 X10^3/uL (2.7-7.7); Neutrophil % 59.8 % (47-70); Platelet Count 216 K/mm3 (150-450); RBC Distribution Width CV 12.3 % (11.6-14.6); RBC Distribution Width SD 43.8 fl (35.1-43.9); Red Blood Count 4.27 M/mm3 (4.2-5.4); White Blood Count 10.3 K/mm3 (4.4-11.0)
[2023-12-10 22:17] LABS: Hemoglobin A1c 5.3 % (3.8-5.6)
[2023-12-10 22:22] LABS: ALB/GLOB Ratio 1.1 RATIO (0.9-2.4); AST(SGOT) 50 U/L (15-37); Alanine Aminotransfer ALT/SGPT 49 U/L (13-56); Albumin, Serum 3.9 g/dL (3.2-5.0); Alkaline Phosphatase 74 U/L (45-117); Anion Gap 7 (5-15); BUN 13 mg/dL (7-18); BUN/Creat Ratio 12.4 RATIO (10-20); Chloride 103 mmol/L (98-107); Cholesterol 212 mg/dL (200); Creatinine, Serum 1.05 mg/dL (0.55-1.02); EST Glomerular Filtration Rate 56 mL/min (>60); Est Glom Filt Rate - Afr Amer 68 mL/min (>60); Globulin 3.4 g/dL (2.2-4.2); Glucose 123 mg/dL (74-106); High Density Lipoprotein 33 mg/dL; Magnesium 1.5 mg/dL (1.6-2.6); Potassium 3.9 mmol/L (3.5-5.1); Protein, Total 7.3 g/dL (6.4-8.2); Sodium Level 138 mmol/L (136-145); Triglycerides 462 mg/dL
== END | disposition home or self-care (01) ==
LOC: LABSPEC 21:29
PROVIDERS: PCP Nurse Practitioner; Visit Provider Nurse Practitioner
DX: Z00.00 Encounter for general adult medical examination without abnormal findings (principal)
CPT/HCPCS: 80053; 80061; 83036; 83735; 85025

== ENCOUNTER → 2024-11-30 | Outpatient (CLI) | payer BC, SELFPAY ==
--- OUTSIDE RECORDS SUMMARY | 2024-11-30 21:46 | XMS RPT_ITS | CCD ---
Author Organization [facility] Inform ion [facility] Care Team Providers Care Scientist Immunology Name Role Phone Sohail OFFICE SERVICES MANAGER.OUTSOLE PARAFFINER, Philippe L Primary Care Provide r Dai TOLL GATE TENDER, Philippe Primary Care Unavailable Dai TOLL GATE TENDER, Philippe Referring Unavailable Dai TOLL GATE TENDER, Philippe Attending Unavailable Dai TOLL GATE TENDER, Philippe Attending Unavailable Dai TOLL GATE TENDER, Philippe Primary Care Unavailable Dai TOLL GATE TENDER, Philippe Primary Care Unavailable Dai TOLL GATE TENDER, Philippe Attending Unavailable Dai OFFICE SERVICES MANAGER.OUTSOLE PARAFFINER, Philippe L Primary Care Provide r DAI, PHILIPPE L Referring Unavailable DAI, PHILIPPE L Primary Care Unavailable ALEXA USAREZ Attending Unavailable DAI, PHILIPPE L Primary Care Unavailable DAI, PHILIPPE L Referring Unavailable ALEXA SUAREZ Referring Unavailable ADI, PHILIPPE L Primary Care Unavailable DAI, PHILIPPE L Referring Unavailable DAI, PHILIPPE L Primary Care Unavailable DAI, PHILIPPE L Primary Care Unavailable DAI, PHILIPPE L Primary Care Unavailable DAI, PHILIPPE L Primary Care Unavailable GEORGE PRESSLEY Attending Unavailable GEORGE PRESSLEY Referring Unavailable DAI, PHILIPPE L Primary Care Unavailable DAI, PHILIPPE L Primary Care Unavailable GEORGE PRESSLEY Attending Unavailable Allergies Allergy Classification Reported Allergen(s) Allergy Type Date of Onset Reaction(s) Facility (18 sources) Codeine; Translations: [CODEINE] Drug Allergy 08-11-19 08 GI Upset, Vomiting [facility] Work Phone: (3 sources) Sulfamethoxazole Drug Allergy 11-04-19 18 dizzy,faint,vo [facility] (3 sources) Sulfonamides (Antibiotic) Propensity to adverse reactions 11-04-19 18 unknown [facility] (3 sources) Trimethoprim Drug Allergy 11-04-19 18 dizzy,faint,vo [facility] (15 sources) Sulfamethoxazole / Trimethoprim; Translations: [SULFAMETHOXAZOLE-T RIMETHOPRIM] Drug Allergy 04-27-19 16 GI Upset, Other: See Comments [facility] (1 source) lamoTRIgine Drug Allergy 05-12-19 24 anxiety and insomnia [facility] (1 source) Ciprofloxacin Drug Allergy 11-12-19 24 [facility] (1 source) Codeine Drug Allergy 12-02-19 22 [facility] (1 source) lamoTRIgine Drug Allergy 05-12-19 24 [facility] (1 source) Sulfamethoxazole Drug Allergy 11-04-19 18 [facility] (1 source) Sulfonamides (Antibiotic) Drug allergy (disorder) 11-04-19 [facility] (1 source) Trimethoprim Drug Allergy 11-04-19 [facility] Medications Current Medications Medication Drug Class(es) Dates Sig (Normalized) Sig (Original) aspirin 325 mg oral tablet (16 sources) Platelet Aggregation Inhibitor, Nonsteroidal Anti-inflammatory Drug Start: 11-03-2017 Aspirin Active PO daily November 02, 2017 11:00pm Start: 08-11-2007 aspirin(ECOTRI N 325 MG TAB) Take one(1) tablet daily. 0 08/11/2007 Active Comment on above: Take one(1) tablet d aily. atorvastatin 80 mg oral tablet (20 sources) HMG-CoA Reductase Inhibitor Start: 6 End: 3 take 1 tablet by mouth once daily atorvastatin (LIPITOR) 80 mg tablet Take 1 tablet by mouth once daily. 90 tablet 2 02/26/2016 Active Comment on above: Take 1 tablet by lizzette once daily. calcium carbonate 750 mg chewable tablet (16 sources) Start: 8 take 1 tablet by mouth twice daily Calcium Carbonate (Tums E-X) 300 mg (750 mg) tablet,chewable Active 300 MG PO TWICE A DAY November 02, 2017 11:00pm take 750 mg by mouth three times daily CALCIUM CARBONATE (TUMS 500 ORAL) Take 750 mg by mouth three times daily. Active Comment on above: Take 750 mg by mouth three times daily. cholecalciferol 0.025 mg oral capsule (16 sources) Vitamin D Start: 11-04-19 18 Cholecalciferol (Vitamin D3) Active PO November 02, 2017 11:00pm Comment on above: Take 1,000 Units by mouth twice daily. cyclobenzaprine hydrochloride 10 mg oral tablet (13 sources) Muscle Relaxant Start: 04-15-19 17 take 1 tablet by mouth twice daily as needed cyclobenzaprine (FLEXERIL) 10 mg tablet Indications: Radiculopathy, cervical region Take 1 tablet by mouth twice daily as needed. 60 tablet 1 04/15/2016 Active Comment on above: Take 1 tablet by lizzette twice daily as needed. diphenhydrAMINE-maalox- lidocaine (BMX 1:1:1) 1:1:1 liqd (1 source) Start: 10-22-19 25 diphenhydrAMINE-maalox -lidocaine (BMX 1:1:1) 1:1:1 liqd Swish, gargle, and spit one to two teaspoonfuls every six hours as needed. Shake well before using. 500 mL 3 10/21/2024 Active famotidine 40 mg oral tablet (14 sources) Histamine-2 Receptor Antagonist Start: 03-02-20 24 famotidine (PEPCID) 40 mg tablet once daily. 03/02/2024 Active Start: 12-21-2018 End: 11-27-2022 take 40 mg by mouth once daily Famotidine Discontinued 40 MG PO DAILY December 07, 2020 4:36pm November 27, 2022 5:16pm Start: 12-20-2018 End: 12-21-2018 take 40 mg by mouth twice daily Famotidine Discontinued 40 MG PO TWICE A DAY 180 December 19, 2018 11:00pm December 21, 2018 11:02am fluticasone propionate 0.05 mg/actuat metered dose nasal spray (1 source) Corticosteroid Start: 11-28-2024 take 1 spray(s) nasal route twice daily fluticasone (FLONASE) 50 mcg/actuation nasal spray Use 1 spray in each nostril two times a day. 48 g 3 11/28/2024 Active hydrOXYzine hydrochloride 10 mg oral tablet (4 sources) Antihistamine Start: 12-03-2021 End: 05-11-2023 take 10 mg by mouth three to four times daily Hydroxyzine Hcl Active 10 MG PO 3 to 4 times per day 120 May 11, 2023 8:05pm ibuprofen 600 mg oral tablet (13 sources) Nonsteroidal Anti-inflammatory Drug Start: 04-15-2016 take 1 tablet by mouth every six hours as needed for pain ibuprofen (MOTRIN) 600 mg tablet Indications: Radiculopathy, cervical region Take 1 tablet by mouth every 6 hours as needed for Pain. 90 tablet 3 04/15/2016 Active Comment on above: Take 1 tablet by lizzette th every 6 hours as needed for Pain. 24 hr isosorbide mononitrate 30 mg extended release oral tablet (20 sources) Nitrate Vasodilator Start: 03-11-2016 End: 11-27-2022 take 1 tablet by mouth once daily isosorbide mononitrate ER (IMDUR) 30 mg 24 hr tablet Take 1 tablet by mouth once daily. 90 tablet 1 03/11/2016 Active Comment on above: Take 1 tablet by lizzette th once daily. iv contrast (will be provided with radiology test) (1 source) Start: 11-28-2024 End: 11-28-2024 inject 1 dose intravenously once, then inject 1 dose intravenously once iv contrast (will be provided with radiology test) Inject 1 each intravenously one time only for [address] Neck W IVCON No IV access, insert saline lock prior to the sedation, infusion, injection for imaging exam. Discontinue saline lock post exam. If Pt. has a central line or IVAD, may access for administration according to line specific nursing protocol. Once exam is complete flush line and de-access according to line specific nursing protocol in the CT contrast administration guidelines link. 1 each 11/28/2024 11/28/2024 Active lisinopril 20 mg oral tablet (13 sources) Angiotensin Converting Enzyme Inhibitor Start: 02-26-2016 take 1 tablet by mouth once daily lisinopril (ZESTRIL, PRINIVIL) 20 mg tablet Take 1 tablet by mouth once daily. 90 tablet 2 02/26/2016 Active Comment on above: Take 1 tablet by lizzette th once daily. losartan potassium 100 mg oral tablet (16 sources) Angiotensin 2 Receptor Jesse Start: 03-01-2024 losartan (COZAAR) 100 mg tablet once daily. 03/01/2024 Active Start: 03-13-2020 End: 11-27-2022 take 100 mg by mouth once daily Losartan Discontinued 100 MG PO daily 90 90 December 03, 2021 4:22pm November 27, 2022 5:11pm Start: 11-30-2019 End: 02-28-2020 take 100 mg by mouth once daily Losartan Discontinued 100 MG PO daily 90 November 29, 2019 11:00pm February 28, 2020 12:02am Magnesium (17 sources) Start: 05-11-2023 Magnesium Acti ve 500 MG PO May 11, 2023 7:50pm Start: 11-03-2017 End: 05-11-2023 Magnesium Discontinued PO 2017 11:00pm May 11, 2023 7:50pm Start: 11-03-2017 Magnesium Acti ve PO November 03, 2017 12:00am take 2 tablets by mo ut once daily Magnesium 250 mg tab Take 500 mg by mouth once daily. Active take 2 tablets by mo uth once daily Magnesium 250 mg tab Take 500 mg by mouth once daily. 0 Active Comment on above: Take 500 mg by mouth once daily. 24 hr metoprolol succinate 100 mg extended release oral tablet (20 sources) beta-Adrenergic Jesse Start: 02-26-2016 End: 11-27-2022 take 1 tablet by mouth once daily metoprolol succinate ER (TOPROL XL) 100 mg Tb24 Take 1 tablet by mouth once daily. 90 tablet 2 02/26/2016 Active Comment on above: Take 1 tablet by lizzette once daily. multivitamin capsule (3 sources) Start: 11-03-2017 multivitamin capsule Active PO November 02, 2017 11:00pm Start: 11-03-2017 multivitamin c apsule Active PO November 03, 2017 12:00am MULTIVITAMIN TAB (13 sources) Start: 06-29-2007 MULTIVITAMIN T AB Take one(1) tablet daily. 0 06/29/2007 Active Comment on above: Take one(1) tablet d aily. niacin 500 mg extended release oral capsule (16 sources) Nicotinic Acid Start: 11-03-2017 niacin ER 500 mg capsule,extended release Active PO November 02, 2017 11:00pm Start: 09-10-2015 niacin ER (DOMITILA SPAN) 500 mg tablet 09/10/2015 Active [place]-3 Fatty Acids (Fish Oi l Concentrate) 1,000 mg capsule (3 sources) Start: 11-03-2017 [place]-3 Fatty Acids (Fish Oil Concentrate) 1,000 mg capsule Active PO November 02, 2017 11:00pm Start: 11-03-2017 [place]-3 Fatty Acids (Fish Oil Concentrate) 1,000 mg capsule Active PO November 03, 2017 12:00am omega-3 fatty acids(FISH OIL 500 MG CAP) (13 sources) Start: 08-11-2007 omega-3 fatty acids(FISH OIL 500 MG CAP) Take 4 capsule daily. 0 08/11/2007 Active Comment on above: Take 4 capsule daily . omeprazole 40 mg delayed release oral capsule (1 source) Proton Pump Inhibitor Start: 10-21-2024 take 1 capsule by mouth once daily at bedtime omeprazole (PRILOSEC) 40 mg capsule Take 1 capsule by mouth daily at bedtime. 90 capsule 10/21/2024 Active predniSONE 20 mg oral tablet (1 source) Start: 05-11-2023 take 40 mg by mouth once daily Prednisone Active 40 MG PO DAILY May 11, 2023 12:00am vitamin b12 1 mg oral tablet (2 sources) Vitamin B12 take 1 tablet by mouth once daily cyanocobalamin (VITAMIN B-12) 1,000 mcg tab Take 1,000 mcg by mouth once daily. Active Completed/Discontinued Medications Medication Drug Class(es) Dates Sig (Normalized) Sig (Original) amoxicillin 875 mg / clavulanate 125 mg oral tablet (8 sources) Penicillin-class Antibacterial Start: 09-04-2022 End: 11-27-2022 take 1 tablet by mouth twice daily Amoxicillin-Pot Clavulanate Discontinued 1 TABLET PO TWICE A DAY September 03, 2022 11:00pm November 27, 2022 5:03pm Start: 11-13-2020 End: 12-07-2020 take 1 tablet by mouth twice daily Amoxicillin-Pot Clavulanate Discontinued 1 TABLET PO TWICE A DAY November 12, 2020 11:00pm December 07, 2020 4:34pm Start: 09-10-2018 End: 12-02-2018 take 1 tablet by mouth twice daily Amoxicillin-Pot Clavulanate Discontinued 1 TABLET PO TWICE A DAY September 09, 2018 11:00pm December 02, 2018 4:07pm fenofibrate 160 mg oral tablet (20 sources) Peroxisome Proliferator Receptor alpha Agonist Start: 11-03-2017 End: 11-03-2017 fenofibrate 160 mg tablet Discontinued PO daily November 02, 2017 11:00pm November 03, 2017 5:46pm Start: 02-26-2016 End: 11-27-2022 take 1 tablet by mouth once daily Fenofibrate (LOFIBRA) 160 mg tablet Take 1 tablet by mouth once daily. 90 tablet 2 02/26/2016 Active Comment on above: Take 1 tablet by lizzette th once daily. hydroCHLOROthiazide 12.5 mg / lisinopril 20 mg oral tablet (9 sources) Thiazide Diuretic, Angiotensin Converting Enzyme Inhibitor Start: 018 End: 020 take 1 tablet by mouth once daily Lisinopril-Hydrochl orothiazide Discontinued 1 TABLET PO daily December 02, 2018 4:10pm March 13, 2020 3:56pm 24 hr lamoTRIgine 100 mg extended release oral tablet (4 sources) Mood Stabilizer, Anti-epileptic Agent Start: 023 End: 024 take 100 mg by mouth once daily Lamotrigine Discontinued 100 MG PO DAILY November 27, 2022 5:18pm May 11, 2023 7:49pm latanoprost 0.05 mg/ml ophthalmic solution (20 sources) Prostaglandin Analog Start: End: 023 Latanoprost Discontinued 1 DRP OPHTHALMIC EVERY EVENING 7.5 October 16, 2021 3:33pm November 27, 2022 5:17pm 1 gtt to each eye at bedtime take 1 drop(s) into the eye(s) once daily at bedtime latanoprost (XALATAN) 0.005 % ophthalmic solution Use 1 Drop in both eyes daily at bedtime. 0 Active Comment on above: Use 1 Drop in both e yes daily at bedtime. Lidocaine (1 source) Antiarrhythmic, Amide Local Anesthetic Start: 03-18-19 End: 03-18-19 OTHER, NEEDED, Starting on Thu03/18/24 at 1358, Until Thu03/18/24 at 1358, Intraprocedure pantoprazole 40 mg delayed release oral tablet (8 sources) Proton Pump Inhibitor Start: 12-04-19 End: 11-28-19 23 take 40 mg by mouth once daily Pantoprazole Discontinued 40 MG PO DAILY December 03, 2021 4:22pm November 27, 2022 5:11pm QUEtiapine 100 mg oral tablet (20 sources) Atypical Antipsychotic Start: 11-28-19 End: 11-28-19 take 0.05 mg by mouth once daily Quetiapine Discontinued 0.05 MG PO DAILY November 27, 2022 5:07pm November 27, 2022 5:16pm Start: 03-13-2020 End: 11-27-2022 take 100 mg by mouth once daily Quetiapine Discontinue d 100 MG PO DAILY December 03, 2021 4:22pm November 27, 2022 5:07pm Start: 11-03-2017 End: 03-13-2020 take 50 mg by mouth once daily in the evening Quetiapine Discontinued 50 MG PO EVERY EVENING November 30, 2019 3:13pm March 13, 2020 3:59pm raNITIdine 300 mg oral tablet (20 sources) Histamine-2 Receptor Antagonist Start: 11-03-2017 End: 11-03-2017 Ranitidine Hcl Discontinued PO TWICE A DAY November 03, 2017 5:41pm November 03, 2017 5:46pm Start: 11-03-2017 End: 11-03-2017 Ranitidine Hcl Discontinued PO TWICE A DAY November 03, 2017 6:41pm November 03, 2017 6:46pm Start: 11-03-2017 End: 11-03-2017 Ranitidine Hcl Discontinued PO November 02, 2017 11:00pm November 03, 2017 5:41pm Start: 11-03-2017 End: 11-03-2017 Ranitidine Hcl Discontinued PO November 03, 2017 12:00am November 03, 2017 6:41pm Start: 11-03-2017 End: 12-21-2018 take 300 mg by mouth twice daily Ranitidine Hcl Discontinued 300 MG PO TWICE A DAY 180 December 02, 2018 5:11pm December 21, 2018 12:01pm Start: 02-26-2016 End: 03-30-2024 take 1 tablet by mouth twice daily Ranitidine HCl (ZANTAC) 300 mg tablet Take 1 tablet by mouth twice daily. 180 tablet 2 02/26/2016 03/30/2024 Discontinued Comment on above: Take 1 tablet by lizzette th twice daily. Problems Active Problems Problem Classification Problem Date Documented Da te Episodic/Chronic Abdominal pain (1 source) Epigastric pain; Translations: [Epigastric pain] 05-11-2023 Episodic Anxiety disorders (10 sources) Anxiety; Translations: [Anxiety disorder, unspecified] 12-02-2018 Chronic Coronary atherosclerosis and other heart disease (13 sources) Coronary arteriosclerosis; Translations: [Atherosclerotic heart disease of [place] coronary artery without angina pectoris] Onset: 4 03-11-2021 Chronic Diabetes mellitus without complication (13 sources) Type 2 diabetes mellitus; Translations: [Type 2 diabetes mellitus without complications] Onset: 9 03-11-2021 Chronic Diabetes mellitus without complication (2 sources) Hyperglycemia; Translations: [Hyperglycemia, unspecified] 11-28-2022 Episodic Diseases of mouth; excluding dental (4 sources) Abscess of oral tissue; Translations: [Cellulitis and abscess of mouth] Onset: 5 09-04-2022 Episodic Disorders of lipid metabolism (16 sources) Hyperlipidemia; Translations: [Hyperlipidemia, unspecified] Onset: 1 07-03-2010 Chronic Disorders of teeth and jaw (2 sources) Torus palatinus; 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] 09-04-2022 Episodic Esophageal disorders (15 sources) Gastroesophageal reflux disease; Translations: [Gastro-esophageal reflux disease without esophagitis] Onset: 1 07-03-2010 Chronic Essential hypertension (16 sources) Hypertensive disorder; Translations: [Essential (primary) hypertension] Onset: 1 07-03-2010 Chronic Intestinal infection (2 sources) Viral gastroenteritis; Translations: [Viral intestinal infection, unspecified] 09-04-2022 Episodic Lymphadenitis (3 sources) Localized enlarged lymph nodes; Translations: [Localized enlarged lymph nodes] Onset: 5 11-28-2024 Episodic Nonmalignant breast conditions (13 sources) Fibrocystic disease of breast; Translations: [Diffuse cystic mastopathy of unspecified breast] Onset: 6 04-27-2015 Chronic Nonmalignant breast conditions (1 source) Unspecified lump in the right breast, unspecified quadrant; Translations: [Unspecified lump in the right breast, unspecified quadrant] Onset: 4 Episodic Other diseases of kidney and ureters (3 sources) Renal impairment; Translations: [Disorder of kidney and ureter, unspecified] 03-13-2020 Episodic Other ear and sense organ disorders (1 source) Tinnitus of right ear; Translations: [Tinnitus, right ear] 11-28-2024 Episodic Other ear and sense organ disorders (1 source) Tinnitus, right ear; Translations: [Tinnitus of right ear] Onset: 5 Episodic Other gastrointestinal disorders (13 sources) Irritable bowel syndrome with diarrhea; Translations: [Irritable bowel syndrome with diarrhea] Onset: 1 07-03-2010 Chronic Other nutritional; endocrine; and metabolic disorders (13 sources) Hypomagnesemia; Translations: [Hypomagnesemia] Onset: 1 07-03-2010 Chronic Other screening for suspected conditions (not mental disorders or infectious disease) (9 sources) Patient encounter status; Translations: [Encounter for screening mammogram for malignant neoplasm of breast] Onset: 4 10-29-2018 Episodic Other upper respiratory disease (2 sources) Sore throat - chronic; Translations: [Chronic pharyngitis] 11-28-2024 Chronic Other upper respiratory disease (1 source) Chronic pharyngitis; Translations: [Chronic sore throat] Onset: 5 Chronic Other upper respiratory disease (2 sources) Singers' nodes; Translations: [Nodules of vocal cords] 11-28-2024 Episodic Other upper respiratory disease (1 source) Nodules of vocal cords; Translations: [Vocal cord nodule] Onset: 5 Episodic Other upper respiratory infections (10 sources) Acute maxillary sinusitis; Translations: [Acute maxillary sinusitis, unspecified] Onset: 5 09-10-2018 Episodic Spondylosis; intervertebral disc disorders; other back problems (3 sources) Neck pain; Translations: [Cervicalgia] Onset: 5 11-28-2024 Episodic Substance-related disorders (5 sources) Tobacco dependence syndrome; Translations: [Nicotine dependence, unspecified, uncomplicated] Onset: 5 11-15-2020 Chronic Urinary tract infections (1 source) Cystitis, unspecified without hematuria; Translations: [Cystitis, unspecified without hematuria] Onset: 4 Episodic Past or Other Problems Problem Classification Problem Date Documented Da te Episodic/Chronic Nonspecific chest pain (2 sources) Chest pain; Translations: [Chest pain, unspecified] Onset: 05-15-2023 4 Episodic Results Test Name Value Interpretation Reference Range Facility [facility] 11-28-2024 [facility] Office Visit (OTOLST) ALEXA SALAZAR ([id number]) 1960 F Date Time Provider Department 11/28/24 9:40 AM GEORGE PRESSLEY OTLIBRADO During your visit today, we recorded the following information about you: George Pressley PA-C 11/28/2024 11:16 AM Signed [facility] [place] [facility]LLOW[facility]UP [facility] NOTE CC: Mrs. Salazar is a 64 year old female who comes in for follow up. Patient was last seen on 10/21/2024 with plan of care: ASSESSMENT: Tinnitus of right ear Tongue burning sensation Gastroesophageal reflux disease, unspecified whether esophagitis present Sore throat PLAN: - Ordered hearing test for further evaluation of hearing, underlying etiology of tinnitus - Educated patient on tinnitus and conservative management options; patient education handout provided - Continue famotidine, add omeprazole; counseled patient on medication, dose, route, side effects, and adverse reactions - Prescribed BMX 1:1:1 mouthwash; counseled patient on medication, dose, route, side effects, and adverse reactions - Educated patient on GERD, including diet and lifestyle modifications, alginate therapy; patient education handout provided - Advised patient on red flag warning signs, symptoms that warrant immediate evaluation in ER - Follow up after hearing test; sooner if clinically indicated George Pressley PA-C [facility] ASSESSMENT: Gastroesophageal reflux disease, unspecified whether esophagitis present Tongue burning sensation Tinnitus of right ear Chronic sore throat Current smoker Vocal cord nodule Localized enlarged lymph nodes Cervicalgia PLAN: - Hearing test schedule 01/12/2025; educated patient on tinnitus and conservative management options; patient education handout provided - Advised patient on smoking cessation including pharmacotherapy for 5 minutes; patient acknowledges understanding - Continue famotidine, omeprazole; counseled patient on medication, dose, route, side effects, and adverse reactions. Recommended patient schedule with GI for further evaluation, management of GERD - Educated patient on GERD, including diet and lifestyle modifications, alginate therapy; patient education handout provided - Ordered CT Neck for further evaluation of chronic neck pain, lymphadenopathy - Consult to Laryngology for further evaluation, video stroboscopy, management of vocal cord nodules - Advised patient on red flag warning signs, symptoms that warrant immediate evaluation in ER - Follow up with Laryngology for voice and with [facility] s/p hearing test; sooner if clinically indicated George Pressley PA-C [facility] HPI: Since last visit, patient reports improvement of GERD with omeprazole, but sore throat, burning tongue, and tinnitus persist (now in left ear as well). Patient describes right-sided globus sensation just irritated that is exacerbated when swallowing and migrates to the left on occasion. Patient reports she cut her smoking in half and motivated to discontinue. HPI 10/21/2024: 64 year old female presents to clinic for evaluation of Sore throat, buring tounge, right ear isses. Patient reports since July 2024, she has experienced sore throat, burning tongue sensation, and tinnitus of right ear. Patient initially had ears cleaned with Nurse Practitioner friend without perceived benefit. On follow up, placed on penicillin per patient without benefit. Other patient-reported interventions include aspirin, ibuprofen. Patient endorses history of GERD, famotidine daily. Patient current smoker, denies personal or family history of head or neck cancer. Patient denies history of seasonal or environmental allergies. Patient denies dysphagia, odynophagia, throat swelling, airway compromise. Past medical history: PAST MEDICAL HISTORY Diagnosis Date Abnormal mammography Acute gastritis without mention of hemorrhage Angina pectoris (HCC) Corns and callus Coronary atherosclerosis of autologous vein bypass graft Cough Depressive disorder Diarrhea Disorder of teeth and supporting structures pain, having root canal tomorrow 10/09/2011 Dyslipidemia Dyspareunia (CODE) Esophageal reflux Esophagitis, unspecified Fibrocystic disease of breast MARIELLA (generalized anxiety disorder) Hypocalcemia IFG (impaired fasting glucose) Impacted cerumen Orthostatic proteinuria Other and unspecified hyperlipidemia Palpitations Tobacco dependence syndrome Unspecified essential hypertension Past surgical history: PAST SURGICAL HISTORY Procedure Laterality Date ARTHROSCOPY KNEE DIAGNOSTIC W/WO SYNOVIAL BX SPX Right 09/13/2006 Arthroscopy, knee - repair right meniscal tear BX OF BREAST; INCISIONAL Right 03/18/2024 COLONOSCOPY FLX DX W/COLLJ SPEC WHEN PFRMD 10/14/2010 Colonoscopy - Dr. Raymond, + polyps EGD TRANSORAL BIOPSY SINGLE/MULTIPLE 0 (more content not included)... Normal [facility] Creatinine and Glomerular fi ltration rate.predicted panel (S/P/Bld)Ordered By: Daron Patel on 11-28-2024 Creatinine [Mass/Vol] 0.92 mg/dL 0.58 - 0.96 mg/dL [facility] GFR/1.73 sq M.predicted among non-blacks MDRD (S/P/Bld) [Vol rate/Area] 70 mL/min/{1.73_m2} - PINF [facility] Comment on above: Estimated Glomerular Filtration Rate (eGFR) is calculated using the 2020 CKD-EPI creatinine equation. This equation utilizes serum creatinine, sex, and age as parameters. The creatinine assay has traceable calibration to isotope dilution-mass spectrometry. Refer to KDIGO guidelines for clinical interpretation. In patients with unstable renal function, e.g. those with acute kidney injury, the eGFR may not accurately reflect actual GFR. Interpretation and review of laboratory results Normal [facility] Creatinine and Glomerular fi ltration rate.predicted panel (S/P/Bld)on 11-28-2024 Creatinine [Mass/Vol] 0.92 mg/dL Normal 0.58-0.96 [facility] [place] Comment on above: Order Comment: Babs lopez Type: BLOOD SPECIMEN Ordering Facility: [facility] Address: [address] [place] [address] Performed By: #### 4 5066-8 #### [facility] CLIA [id number] [address] [place] [address] [place] eGFRcr SerPlBld CKD-EPI 2020 70 mL/min/1.73m??? Normal >=60 [facility] Comment on above: Order Comment: Babs lopez Type: BLOOD SPECIMEN Ordering Facility: [facility] Address: [address] [place] [address] Result Comment: Malena mated Glomerular Filtration Rate (eGFR) is calculated using the 2020 CKD-EPI creatinine equation. This equation utilizes serum creatinine, sex, and age as parameters. The creatinine assay has traceable calibration to isotope dilution-mass spectrometry. Refer to KDIGO guidelines for clinical interpretation. In patients with unstable renal function, e.g. those with acute kidney injury, the eGFR may not accurately reflect actual GFR. Performed By: #### 4 5066-8 #### [facility] CLIA [id number] [address] [place] [address] [facility] CNOVon 10-21-2024 CNOV Office Visit (OTOLST) ALEXA SALAZAR ([id number]) 1960 F Date Time Provider Department 10/21/24 10:55 AM GEORGE PRESSLEY During your visit today, we recorded the following information about you: Weight Height 79.4 kg 1.702 m George Pressley PA-C 10/21/2024 11:29 AM Signed [facility] [place] [facility] NOTE CC: Alexa Salazar is a 64 year old female who is self referred for Sore throat, buring tounge, right ear isses. ASSESSMENT: Tinnitus of right ear Tongue burning sensation Gastroesophageal reflux disease, unspecified whether esophagitis present Sore throat PLAN: - Ordered hearing test for further evaluation of hearing, underlying etiology of tinnitus - Educated patient on tinnitus and conservative management options; patient education handout provided - Continue famotidine, add omeprazole; counseled patient on medication, dose, route, side effects, and adverse reactions - Prescribed BMX 1:1:1 mouthwash; counseled patient on medication, dose, route, side effects, and adverse reactions - Educated patient on GERD, including diet and lifestyle modifications, alginate therapy; patient education handout provided - Advised patient on red flag warning signs, symptoms that warrant immediate evaluation in ER - Follow up after hearing test; sooner if clinically indicated George Prsesley PA-C [facility] HPI: 64 year old female presents to clinic for evaluation of Sore throat, buring tounge, right ear isses. Patient reports since July 2024, she has experienced sore throat, burning tongue sensation, and tinnitus of right ear. Patient initially had ears cleaned with Nurse Practitioner friend without perceived benefit. On follow up, placed on penicillin per patient without benefit. Other patient-reported interventions include aspirin, ibuprofen. Patient endorses history of GERD, famotidine daily. Patient current smoker, denies personal or family history of head or neck cancer. Patient denies history of seasonal or environmental allergies. Patient denies dysphagia, odynophagia, throat swelling, airway compromise. Past medical history: PAST MEDICAL HISTORY Diagnosis Date Abnormal mammography Acute gastritis without mention of hemorrhage Angina pectoris (HCC) Corns and callus Coronary atherosclerosis of autologous vein bypass graft Cough Depressive disorder Diarrhea Disorder of teeth and supporting structures pain, having root canal tomorrow 10/09/2011 Dyslipidemia Dyspareunia (CODE) Esophageal reflux Esophagitis, unspecified Fibrocystic disease of breast MARIELLA (generalized anxiety disorder) Hypocalcemia IFG (impaired fasting glucose) Impacted cerumen Orthostatic proteinuria Other and unspecified hyperlipidemia Palpitations Tobacco dependence syndrome Unspecified essential hypertension Past surgical history: PAST SURGICAL HISTORY Procedure Laterality Date ARTHROSCOPY KNEE DIAGNOSTIC W/WO SYNOVIAL BX SPX Right 09/13/2006 Arthroscopy, knee - repair right meniscal tear BX OF BREAST; INCISIONAL Right 03/18/2024 COLONOSCOPY FLX DX W/COLLJ SPEC WHEN PFRMD 10/14/2010 Colonoscopy - Dr. Raymond, + polyps EGD TRANSORAL BIOPSY SINGLE/MULTIPLE 08/11/2007 ESOPHAGOGASTRODUODEN OSCOPY TRANSORAL DIAGNOSTIC 10/18/2010 EGD - Dr. Raymond, gastritis MOTOR NERVE CONDUCTION TEST TRABECULOPLASTY BY LASER SURGERY Bilateral 03/16/1999 eyes to correct vision Current medication(s): Current Outpatient Medications Medication Sig famotidine (PEPCID) 40 mg tablet once daily. losartan (COZAAR) 100 mg tablet once daily. cyanocobalamin (VITAMIN B-12) 1,000 mcg tab Take 1,000 mcg by mouth once daily. ibuprofen (MOTRIN) 600 mg tablet Take 1 tablet by mouth every 6 hours as needed for Pain. isosorbide mononitrate ER (IMDUR) 30 mg 24 hr tablet Take 1 tablet by mouth once daily. Fenofibrate (LOFIBRA) 160 mg tablet Take 1 tablet by mouth once daily. atorvastatin (LIPITOR) 80 mg tablet Take 1 tablet by mouth once daily. metoprolol succinate ER (TOPROL XL) 100 mg Tb24 Take 1 tablet by mouth once daily. niacin ER (NIASPAN) 500 mg tablet latanoprost (XALATAN) 0.005 % ophthalmic solution Use 1 Drop in both eyes daily at bedtime. Cholecalciferol, Vitamin D3, (VITAMIN D) 1,000 unit cap Take 1,000 Units by mouth twice daily. Magnesium 250 mg tab Take 500 mg by mouth once daily. CALCIUM CARBONATE (TUMS 500 ORAL) Take 750 mg by mouth three times daily. aspirin(ECOTRIN 325 MG TAB) Take one(1) tablet daily. omega-3 fatty acids(FISH OIL 500 MG CAP) Take 4 capsule daily. MULTIVITAMIN TAB Take one(1) tablet daily. omeprazole (PRILOSEC) 40 mg capsule Take 1 capsule by mouth daily at bedtime. diphenhydrAMINE-maal ox-lidocaine (BMX 1:1:1) 1:1:1 liqd Swish, gargle, and spit one to two teaspoonfuls every six hours as needed. Shake well before using. cyclobenzap (more content not included)... Normal [facility] CNOVon 03-30-2024 CNOV Office Visit (AGGBRCR) ALEXA SALAZAR ([id number]) 1960 F Date Time Provider Department 03/30/24 3:00 PM ALEXA SUAREZ [facility] During your visit today, we recorded the following information about you: Pulse Blood pressure Weight Height 96/minute 171/90 80.3 kg 1.702 m Alexa Suarez MD 03/30/2024 3:18 PM Addendum Alexa Suarez MD [facility] [address] [place], [place] [id number] HPI: Debra Cristinevalentina is a 64 year old White female who presents after right breast image guided biopsy. The patient reports the lesion was found on screening mammogram in December 2023. She reports she had no new findings on her self breast exam prior to the biopsy. There is no family history of breast cancer. Postbiopsy, the patient had a large hematoma. This was managed conservatively. There are no exam notes on file for this visit. No question data found. Obstetric History No data available PAST MEDICAL HISTORY Diagnosis Date Abnormal mammography Acute gastritis without mention of hemorrhage Angina pectoris (HCC) Corns and callus Coronary atherosclerosis of autologous vein bypass graft Cough Depressive disorder Diarrhea Disorder of teeth and supporting structures pain, having root canal tomorrow 10/09/2011 Dyslipidemia Dyspareunia (CODE) Esophageal reflux Esophagitis, unspecified Fibrocystic disease of breast MARIELLA (generalized anxiety disorder) Hypocalcemia IFG (impaired fasting glucose) Impacted cerumen Orthostatic proteinuria Other and unspecified hyperlipidemia Palpitations Tobacco dependence syndrome Unspecified essential hypertension PAST SURGICAL HISTORY Procedure Laterality Date ARTHROSCOPY KNEE DIAGNOSTIC W/WO SYNOVIAL BX SPX Right 09/13/2006 Arthroscopy, knee - repair right meniscal tear BX OF BREAST; INCISIONAL Right 03/18/2024 COLONOSCOPY FLX DX W/COLLJ SPEC WHEN PFRMD 10/14/2010 Colonoscopy - Dr. Raymond, + polyps EGD TRANSORAL BIOPSY SINGLE/MULTIPLE 08/11/2007 ESOPHAGOGASTRODUODEN OSCOPY TRANSORAL DIAGNOSTIC 10/18/2010 EGD - Dr. Raymond, gastritis MOTOR NERVE CONDUCTION TEST TRABECULOPLASTY BY LASER SURGERY Bilateral 03/16/1999 eyes to correct vision FAMILY HISTORY Problem Relation Age of Onset other (HTN [Other]) Mother Hyperlipidemia Mother other (DM2 [Other]) Mother other (BLADDER CN [Other]) Father other (HTN [Other]) Father Hyperlipidemia Father other (DM2 [Other]) Father other (Osteoperosis [Other]) Other paternal aunt Breast Cancer No Family History Ovarian cancer No Family History CURRENT MEDICATIONS: famotidine (PEPCID) 40 mg tablet once daily. losartan (COZAAR) 100 mg tablet once daily. cyanocobalamin (VITAMIN B-12) 1,000 mcg tab Take 1,000 mcg by mouth once daily. ibuprofen (MOTRIN) 600 mg tablet Take 1 tablet by mouth every 6 hours as needed for Pain. isosorbide mononitrate ER (IMDUR) 30 mg 24 hr tablet Take 1 tablet by mouth once daily. Fenofibrate (LOFIBRA) 160 mg tablet Take 1 tablet by mouth once daily. atorvastatin (LIPITOR) 80 mg tablet Take 1 tablet by mouth once daily. metoprolol succinate ER (TOPROL XL) 100 mg Tb24 Take 1 tablet by mouth once daily. lisinopril (ZESTRIL, PRINIVIL) 20 mg tablet Take 1 tablet by mouth once daily. niacin ER (NIASPAN) 500 mg tablet latanoprost (XALATAN) 0.005 % ophthalmic solution Use 1 Drop in both eyes daily at bedtime. Cholecalciferol, Vitamin D3, (VITAMIN D) 1,000 unit cap Take 1,000 Units by mouth twice daily. Magnesium 250 mg tab Take 500 mg by mouth once daily. CALCIUM CARBONATE (TUMS 500 ORAL) Take 750 mg by mouth three times daily. aspirin(ECOTRIN 325 MG TAB) Take one(1) tablet daily. omega-3 fatty acids(FISH OIL 500 MG CAP) Take 4 capsule daily. MULTIVITAMIN TAB Take one(1) tablet daily. cyclobenzaprine (FLEXERIL) 10 mg tablet Take 1 tablet by mouth twice daily as needed. (Patient not taking: Reported on 03/30/2024) CURRENT ALLERGIES: ALLERGIES Allergen Reactions Bactrim [Sulfametho* GI Upset, Other: See Comments Burning of skin, redness Codeine GI Upset, Vomiting Social History Tobacco Use Smoking status: Every Day Current packs/day: 1.50 Average packs/day: 1.5 packs/day for 50.0 years (75.1 ttl pk-yrs) Types: Cigarettes Start date: 03/16/1974 Smokeless tobacco: Never Tobacco comments: smokes 1 1/2 ppd since age 15 years Substance Use Topics Alcohol use: Yes Comment: WEEKLY Drug use: No LABS AND IMAGING: FINAL DIAGNOSIS Breast, right,right breast 12:00, 3 cm from nipple (ribbon clip), core biopsy: - Benign breast tissue with foamy histiocytes, hemorrhage and giant cells compatible with fat necrosis. Review of Systems Constitutional: Negative for chills, fever, malaise/fatigue and weight loss. HENT: Negative for hearing loss. Eyes: Negative for blurred vision. Respiratory: Negative for cough, shortness (more content not included)... Normal [facility] CNPNon 03-23-[address] [facility] Telephone (AGGBRCR) ALEXA SALAZAR ([id number]) 1960 F Date Time Provider Department 03/23/24 DANIELA ALEXA Veloz [facility] During your visit today, we recorded the following information about you: Gale Brewer RN 03/23/2024 3:16 PM Signed Call placed to patient with breast biopsy results. Verified name and date of . Informed patient that her breast biopsy came back benign/not cancer. Verified follow up appointment and encouraged patient to keep appointment for further recommendations from the doctor. Gale Brewer RN Allergies As of Date: 03/23/2024 Noted Allergy Reaction BACTRIM (SULFAMETHOXAZOLE-TR IMETH*04/27/2015 8 - GI Upset 14 - Other: See Comments Comments: Burning of skin, redness CODEINE 08/11/2007 8 - GI Upset 11 - Vomiting Date Reviewed: 03/18/2024 Reviewed by: Zoraida Wick, RT(R) - Fully Assessed Reason for Visit: Results [95] Prescriptions as of 03/23/2024 - cyclobenzaprine (FLEXERIL) 10 mg tablet Take 1 tablet by mouth twice daily as needed. - ibuprofen (MOTRIN) 600 mg tablet Take 1 tablet by mouth every 6 hours as needed for Pain. - isosorbide mononitrate ER (IMDUR) 30 mg 24 hr tablet Take 1 tablet by mouth once daily. - Fenofibrate (LOFIBRA) 160 mg tablet Take 1 tablet by mouth once daily. - atorvastatin (LIPITOR) 80 mg tablet Take 1 tablet by mouth once daily. - metoprolol succinate ER (TOPROL XL) 100 mg Tb24 Take 1 tablet by mouth once daily. - lisinopril (ZESTRIL, PRINIVIL) 20 mg tablet Take 1 tablet by mouth once daily. - Ranitidine HCl (ZANTAC) 300 mg tablet Take 1 tablet by mouth twice daily. - niacin ER (NIASPAN) 500 mg tablet - latanoprost (XALATAN) 0.005 % ophthalmic solution Use 1 Drop in both eyes daily at bedtime. - Cholecalciferol, Vitamin D3, (VITAMIN D) 1,000 unit cap Take 1,000 Units by mouth twice daily. - Magnesium 250 mg tab Take 500 mg by mouth once daily. - CALCIUM CARBONATE (TUMS 500 ORAL) Take 750 mg by mouth three times daily. - aspirin(ECOTRIN 325 MG TAB) Take one(1) tablet daily. - omega-3 fatty acids(FISH OIL 500 MG CAP) Take 4 capsule daily. - MULTIVITAMIN TAB Take one(1) tablet daily. Problem List As Of Date 03/23/2024 Noted Resolved GERD (gastroesophageal reflux disease) [K21.9] Hypertension [I10] 07/03/2010 Type 2 diabetes mellitus (HCC) [E11.9] 07/03/2008 Hyperlipidemia LDL goal < 100 [E78.5] 07/03/2010 Hypomagnesemia [E83.42] 07/03/2010 Irritable bowel syndrome, diarrhea-predominant *07/03/2010 CAD (coronary artery disease) [I25.10] 07/04/2003 Fibrocystic breast changes [N60.19] 04/27/2015 Encounter Status:Closed by GALE BREWER on 03/23/[address] [facility] DBT Breast - right diagnosti c for implanton 03-18-2024 IMPRESSION: ULTRASOUND GUIDED BIOPSY Site 1: Ultrasound-guided biopsy of the lesion located in the right breast at 12 o'clock, 3 cm from the nipple with placement of a ribbon biopsy marker. Procedure was successful. Waiting for pathology result. An amendment will be issued to this report when pathology results become available. The ribbon biopsy marker is in appropriate position at the lesion. A moderate to large hematoma was observed, which was treated with local pressure until hemostasis was achieved. No sonographic evidence of active bleeding. The hematoma was softer and smaller by palpation after being treated with local pressure. The patient was given at home care instructions for further management, and given further instructions should hematoma worsen. Interpreting Radiologist: Yassine Meraz M.D. Electronically signed on: 03/18/2024 Racket Stringer: [email or web address] Transcribe Date/Time: Mar 18 2024 2:44P Dictated by : YASSINE MERAZ MD This examination was interpreted and the report reviewed and electronically signed by: YASSINE MEARZ MD on Mar 18 2024 3:45PM [facility] * * *Final Report* * * DATE OF EXAM: Mar 18 2024 2:46PM W [id number] - [facility] BRITTANY Pretty ROJAS RT / PROCEDURE REASON: Abnormal finding on breast imaging * * * * Physician Interpretation * * * * [facility] [address] [facility] [place] [address] #[id number] - [facility] US BIOPSY BREAST RT #[id number] - [facility] BRITTANY Pretty ROJAS RT HISTORY: 64 year old patient presents for ultrasound guided core biopsy of the following: Site 1: Lesion located in the right breast at 12 o'clock, 3 cm from the nipple PATIENT CONSENT: A time out was performed immediately prior to procedure start with the radiology team, correctly identifying the patient name, date of , procedure, anatomy (including marking of site and side), patient position, relevant diagnostic and radiology test results, safety precautions, and procedure-specific equipment needs. The procedure, along with the risks (including, but not limited to, infection and bleeding), benefits, and alternatives, was explained to the patient by the performing physician. The patient agreed to undergo the procedure. Medications and allergies were also reviewed. The radiologist and technologist were present throughout the entire procedure. Correlation is made to exams dated: 12/25/2022 (mammogram), 12/29/2023 (mammogram), 02/16/2024 (mammogram), 02/16/2024 (ultrasound) and 02/23/2024 (ultrasound). Site 1: Lesion in the right breast at 12 o'clock, 3 cm from the nipple Audible Time Out Time: 1356 Procedure Start Time: 1358 Procedure Stop Time: 1402 An ultrasound-guided biopsy using real-time ultrasound was performed for the concerning lesion located in the right breast at 12 o'clock, 3 cm from the nipple. This was described on the previous ultrasound report. The skin was prepped in the usual manner. Local anesthetic was administered. A skin jose was made. The abnormality was approached from the lateral aspect. A 14 gauge biopsy needle was placed adjacent to the abnormality under ultrasound guidance. Once the needle was documented to be in the correct location, 3 samples were obtained using a spring-loaded biopsy device. A ribbon biopsy marker was then placed under sonographic guidance. A skin closure strip and a sterile dressing were applied to the access site. The specimen was sent to the laboratory for pathological analysis. The specimen was sent to the laboratory for pathological analysis. Post-procedure mammogram: The ribbon biopsy marker is in appropriate position at the lesion. Post-procedure mammogram density: There are scattered areas of fibroglandular density. [facility] Provider, [facility] [place] - 03/18/2024 * * *Final Report* * * DATE OF EXAM: Mar 18 2024 2:46PM [id number] [id number] - [facility] DIAG W ROJAS RT / PROCEDURE REASON: Abnormal finding on breast imaging * * * * Physician Interpretation * * * * [facility] [address] [facility] [place] [address] #[id number] - [facility] US BIOPSY BREAST RT #[id number] - [facility] DIAG W ROJAS RT HISTORY: 64 year old patient presents for ultrasound guided core biopsy of the following: Site 1: Lesion located in the right breast at 12 o'clock, 3 cm from the nipple PATIENT CONSENT: A time out was performed immediately prior to procedure start with the radiology team, correctly identifying the patient name, date of , procedure, anatomy (including marking of site and side), patient position, relevant diagnostic and radiology test results, safety precautions, and procedure-specific equipment needs. The procedure, along with the risks (including, but not limited to, infection and bleeding), benefits, and alternatives, was explained to the patient by the performing physician. The patient agreed to undergo the procedure. Medications and allergies were also reviewed. The radiologist and technologist were present throughout the entire procedure. Correlation is made to exams dated: 12/25/2022 (mammogram), 12/29/2023 (mammogram), 02/16/2024 (mammogram), 02/16/2024 (ultrasound) and 02/23/2024 (ultrasound). Site 1: Lesion in the right breast at 12 o'clock, 3 cm from the nipple Audible Time Out Time: 1356 Procedure Start Time: 1358 Procedure Stop Time: 1402 An ultrasound-guided biopsy using real-time ultrasound was performed for the concerning lesion located in the right breast at 12 o'clock, 3 cm from the nipple. This was described on the previous ultrasound report. The skin was prepped in the usual manner. Local anesthetic was administered. A skin jose was made. The abnormality was approached from the lateral aspect. A 14 gauge biopsy needle was placed adjacent to the abnormality under ultrasound guidance. Once the needle was documented to be in the correct location, 3 samples were obtained using a spring-loaded biopsy device. A ribbon biopsy marker was then placed under sonographic guidance. A skin closure strip and a sterile dressing were applied to the access site. The specimen was sent to the laboratory for pathological analysis. The specimen was sent to the laboratory for pathological analysis. Post-procedure mammogram: The ribbon biopsy marker is in appropriate position at the lesion. Post-procedure mammogram density: There are scattered areas of fibroglandular density. IMPRESSION IMPRESSION: ULTRASOUND GUIDED BIOPSY Site 1: Ultrasound-guided biopsy of the lesion located in the right breast at 12 o'clock, 3 cm from the nipple with placement of a ribbon biopsy marker. Procedure was successful. Waiting for pathology result. An amendment will be issued to this report when pathology results become available. The ribbon biopsy marker is in appropriate position at the lesion. A moderate to large hematoma was observed, which was treated with local pressure until hemostasis was achieved. No sonographic evidence of active bleeding. The hematoma was softer and smaller by palpation after being treated with local pressure. The patient was given at home care instructions for further management, and given further instructions should hematoma worsen. Interpreting Radiologist: Yassine Meraz M.D. Electronically signed on: 03/18/2024 Racket Stringer: [email or web address] Transcribe Date/Time: Mar 18 2024 2:44P Dictated by : YASSINE MERAZ MD This examination was interpreted and the report reviewed and electronically signed by: YASSINE MERAZ MD on Mar 18 2024 3:45PM [facility] Radiology Study observation (narrative) Quang aldrich [facility] AMPARO MANZANOon 025 AMPARO MANZANO * * *Final Report* * * * * * SEE BOTTOM OF REPORT FOR ADDENDED TEXT * * * DATE OF EXAM: Mar 18 2024 2:46PM SHANIQUE [id number] - AMPARO MANZANO / PROCEDURE REASON: Abnormal finding on breast imaging * * * * Physician Interpretation * * * * [facility] [address] [facility] [place] [address] - - - - - - - - - - ADDENDED REPORT - - - - - - - - - - 03/24/2024 at 12:21:14 Addendum: The final pathology results of the patient's ultrasound guided core biopsy demonstrate the following: Site 1 - (right breast) Breast, Right,right Breast 12:00, 3 Cm From Nipple (Ribbon Clip), Core Biopsy: - Benign Breast Tissue With Foamy Histiocytes, Hemorrhage and Giant Cells Compatible With Fat Necrosis. This is concordant with the imaging findings. RECOMMENDATION Site 1: Six month follow up mammogram and ultrasound Interpreting Radiologist: Yassine Meraz M.D. Electronically signed on: 03/24/2024 - - - - - - - - - - ORIGINAL REPORT - - - - - - - - - - #[id number] - [facility] US BIOPSY BREAST RT #[id number] - [facility] BRITTANY XIE RT HISTORY: 64 year old patient presents for ultrasound guided core biopsy of the following: Site 1: Lesion located in the right breast at 12 o'clock, 3 cm from the nipple PATIENT CONSENT: A time out was performed immediately prior to procedure start with the radiology team, correctly identifying the patient name, date of , procedure, anatomy (including marking of site and side), patient position, relevant diagnostic and radiology test results, safety precautions, and procedure-specific equipment needs. The procedure, along with the risks (including, but not limited to, infection and bleeding), benefits, and alternatives, was explained to the patient by the performing physician. The patient agreed to undergo the procedure. Medications and allergies were also reviewed. The radiologist and technologist were present throughout the entire procedure. Correlation is made to exams dated: 12/25/2022 (mammogram), 12/29/2023 (mammogram), 02/16/2024 (mammogram), 02/16/2024 (ultrasound) and 02/23/2024 (ultrasound). Site 1: Lesion in the right breast at 12 o'clock, 3 cm from the nipple Audible Time Out Time: 1356 Procedure Start Time: 1358 Procedure Stop Time: 1402 An ultrasound-guided biopsy using real-time ultrasound was performed for the concerning lesion located in the right breast at 12 o'clock, 3 cm from the nipple. This was described on the previous ultrasound report. The skin was prepped in the usual manner. Local anesthetic was administered. A skin jose was made. The abnormality was approached from the lateral aspect. A 14 gauge biopsy needle was placed adjacent to the abnormality under ultrasound guidance. Once the needle was documented to be in the correct location, 3 samples were obtained using a spring-loaded biopsy device. A ribbon biopsy marker was then placed under sonographic guidance. A skin closure strip and a sterile dressing were applied to the access site. The specimen was sent to the laboratory for pathological analysis. The specimen was sent to the laboratory for pathological analysis. Post-procedure mammogram: The ribbon biopsy marker is in appropriate position at the lesion. Post-procedure mammogram density: There are scattered areas of fibroglandular density. IMPRESSION: ULTRASOUND GUIDED BIOPSY Site 1: Ultrasound-guided biopsy of the lesion located in the right breast at 12 o'clock, 3 cm from the nipple with placement of a ribbon biopsy marker. Procedure was successful. Waiting for pathology result. An amendment will be issued to this report when pathology results become available. The ribbon biopsy marker is in appropriate position at the lesion. A moderate to large hematoma was observed, which was treated with local pressure until hemostasis was achieved. No sonographic evidence of active bleeding. The hematoma was softer and smaller by palpation after being treated with local pressure. The patient was given at home care instructions for further management, and given further instructions should hematoma worsen. Interpreting Radiologist: Yassine Meraz M.D. Electronically signed on: 03/18/2024 Racket Stringer: [email or web address] Transcribe Date/Time: Mar 18 2024 2:44P Dictated by : YASSINE MERAZ MD This examination was interpreted and the report reviewed and electronically signed by: YASSINE MERAZ MD on Mar 18 2024 3:45PM EST This document has been addended by: YASSINE MERAZ MD on Mar 24 2024 12:21PM EST [id number] CN Normal [facility] US BIOPSY BREAST RTon [facility] US BIOPSY BREAST RT * * *Final Repor t* * * * * * SEE BOTTOM OF REPORT FOR ADDENDED TEXT * * * DATE OF EXAM: Mar 18 2024 2:30PM [facility] 0598 - [facility] US BIOPSY BREAST RT / PROCEDURE REASON: Abnormal finding on breast imaging * * * * Physician Interpretation * * * * [facility] [address] [facility] [place] [address] - - - - - - - - - - ADDENDED REPORT - - - - - - - - - - 03/24/2024 at 12:21:14 Addendum: The final pathology results of the patient's ultrasound guided core biopsy demonstrate the following: Site 1 - (right breast) Breast, Right,right Breast 12:00, 3 Cm From Nipple (Ribbon Clip), Core Biopsy: - Benign Breast Tissue With Foamy Histiocytes, Hemorrhage and Giant Cells Compatible With Fat Necrosis. This is concordant with the imaging findings. RECOMMENDATION Site 1: Six month follow up mammogram and ultrasound Interpreting Radiologist: Yassine Meraz M.D. Electronically signed on: 03/24/2024 - - - - - - - - - - ORIGINAL REPORT - - - - - - - - - - #[id number] - [facility] US BIOPSY BREAST RT #[id number] - [facility] BRITTANY XIE RT HISTORY: 64 year old patient presents for ultrasound guided core biopsy of the following: Site 1: Lesion located in the right breast at 12 o'clock, 3 cm from the nipple PATIENT CONSENT: A time out was performed immediately prior to procedure start with the radiology team, correctly identifying the patient name, date of , procedure, anatomy (including marking of site and side), patient position, relevant diagnostic and radiology test results, safety precautions, and procedure-specific equipment needs. The procedure, along with the risks (including, but not limited to, infection and bleeding), benefits, and alternatives, was explained to the patient by the performing physician. The patient agreed to undergo the procedure. Medications and allergies were also reviewed. The radiologist and technologist were present throughout the entire procedure. Correlation is made to exams dated: 12/25/2022 (mammogram), 12/29/2023 (mammogram), 02/16/2024 (mammogram), 02/16/2024 (ultrasound) and 02/23/2024 (ultrasound). Site 1: Lesion in the right breast at 12 o'clock, 3 cm from the nipple Audible Time Out Time: 1356 Procedure Start Time: 1358 Procedure Stop Time: 1402 An ultrasound-guided biopsy using real-time ultrasound was performed for the concerning lesion located in the right breast at 12 o'clock, 3 cm from the nipple. This was described on the previous ultrasound report. The skin was prepped in the usual manner. Local anesthetic was administered. A skin jose was made. The abnormality was approached from the lateral aspect. A 14 gauge biopsy needle was placed adjacent to the abnormality under ultrasound guidance. Once the needle was documented to be in the correct location, 3 samples were obtained using a spring-loaded biopsy device. A ribbon biopsy marker was then placed under sonographic guidance. A skin closure strip and a sterile dressing were applied to the access site. The specimen was sent to the laboratory for pathological analysis. The specimen was sent to the laboratory for pathological analysis. Post-procedure mammogram: The ribbon biopsy marker is in appropriate position at the lesion. Post-procedure mammogram density: There are scattered areas of fibroglandular density. IMPRESSION: ULTRASOUND GUIDED BIOPSY Site 1: Ultrasound-guided biopsy of the lesion located in the right breast at 12 o'clock, 3 cm from the nipple with placement of a ribbon biopsy marker. Procedure was successful. Waiting for pathology result. An amendment will be issued to this report when pathology results become available. The ribbon biopsy marker is in appropriate position at the lesion. A moderate to large hematoma was observed, which was treated with local pressure until hemostasis was achieved. No sonographic evidence of active bleeding. The hematoma was softer and smaller by palpation after being treated with local pressure. The patient was given at home care instructions for further management, and given further instructions should hematoma worsen. Interpreting Radiologist: Yassine Meraz M.D. Electronically signed on: 03/18/2024 Racket Stringer: [email or web address] Transcribe Date/Time: Mar 18 2024 1:32P Dictated by : YASSINE MERAZ MD This examination was interpreted and the report reviewed and electronically signed by: YASSINE MERAZ MD on Mar 18 2024 3:45PM EST This document has been addended by: YASSINE MERAZ MD on Mar 24 2024 12:21PM EST [id number] CN [facility] No Panel InformationOrdered By: [facility] Provider on 03-18-2024 [facility] SURGICAL PATHOLOGYon [address] [facility] Comment on above: Order Comment: Speci men Type: TISSUE SPECIMEN Ordering Facility: [facility] Address: [address] [place] [address] Result Comment: Surg ical Pathology Report Case: [id number] Authorizing Provider: Yassine Meraz MD Collected: 03/18/2024 01:59 PM Ordering Location: [facility] Received: 03/21/2024 10:28 AM [facility] Pathologist: Saumya Carmen MD Specimen: Breast, Right, Core Biopsy, 12:00 3 cmfn-3x14g, ribbon clip, obtained- 1:59pm, in formalin 1:59 pm Performed By: #### S #### [facility] CLIA [id number] [address] [address] CLINICAL HISTORY right breast mass, us guided core biopsy Normal [facility] Comment on above: Order Comment: Speci men Type: TISSUE SPECIMEN Ordering Facility: [facility] Address: [address] [place] [address] Performed By: #### S #### [facility] CLIA [id number] [address] FINAL DIAGNOSIS Normal [facility] Comment on above: Order Comment: Speci men Type: TISSUE SPECIMEN Ordering Facility: [facility] Address: [address] [place] [address] Result Comment: [address] st, right,right breast 12:00, 3 cm from nipple (ribbon clip), core biopsy: - Benign breast tissue with foamy histiocytes, hemorrhage and giant cells compatible with fat necrosis. Performed By: #### S #### [facility] CLIA [id number] [address] FINAL PERFORMING LAB Normal [facility] Comment on above: Order Comment: Speci men Type: TISSUE SPECIMEN Ordering Facility: [facility] Address: [address] [id number] Result Comment: Diag nostic interpretation performed at: [facility], [address] [place] [address] CLIA# [id number] [employer] Machine Operator: Rob Andrade MD Performed By: #### S #### [facility] CLIA [id number] [address] [place] [address] GROSS DESCRIPTION Normal [facility] Comment on above: Order Comment: Speci men Type: TISSUE SPECIMEN Ordering Facility: [facility] Address: [address] [place] [address] Result Comment: A. B reast, Right, Core Biopsy Received in formalin labeled as right breast 12:00, 3 cm from nipple (ribbon clip) are 3 segments of cylindrical tissue aggregating to 1.8 x 0.6 x 0.2 cm, yellow and of a rubbery consistency. Totally submitted in one cassette. The specimen was removed from the patient at 1:59 PM on 03/18/2024. On the same day, the specimen was placed in formalin at 1:59 PM. Gross examination performed at [facility], [address] [place] [address] [facility] March 21, 2024 2:54 PM Performed By: #### S #### [facility] CLIA [id number] [address] [place] [address] [place] Guidance for biopsy of Br east - righton 03-18-2024 IMPRESSION: ULTRASOUND GUIDED BIOPSY Site 1: Ultrasound-guided biopsy of the lesion located in the right breast at 12 o'clock, 3 cm from the nipple with placement of a ribbon biopsy marker. Procedure was successful. Waiting for pathology result. An amendment will be issued to this report when pathology results become available. The ribbon biopsy marker is in appropriate position at the lesion. A moderate to large hematoma was observed, which was treated with local pressure until hemostasis was achieved. No sonographic evidence of active bleeding. The hematoma was softer and smaller by palpation after being treated with local pressure. The patient was given at home care instructions for further management, and given further instructions should hematoma worsen. Interpreting Radiologist: Yassine Meraz M.D. Electronically signed on: 03/18/2024 Racket Stringer: [email or web address] Transcribe Date/Time: Mar 18 2024 1:32P Dictated by : YASSINE MERAZ MD This examination was interpreted and the report reviewed and electronically signed by: YASSINE MERAZ MD on Mar 18 2024 3:45PM [facility] RADIOLOGY SYNGO * * *Final Report* * * DATE OF EXAM: Mar 18 2024 2:30PM [facility] 0598 - [facility] US BIOPSY BREAST RT / PROCEDURE REASON: Abnormal finding on breast imaging * * * * Physician Interpretation * * * * [facility] [address] [facility] [place] [address] #[id number] - [place] US BIOPSY BREAST RT #[id number] - [facility] BRITTANY XEI RT HISTORY: 64 year old patient presents for ultrasound guided core biopsy of the following: Site 1: Lesion located in the right breast at 12 o'clock, 3 cm from the nipple PATIENT CONSENT: A time out was performed immediately prior to procedure start with the radiology team, correctly identifying the patient name, date of , procedure, anatomy (including marking of site and side), patient position, relevant diagnostic and radiology test results, safety precautions, and procedure-specific equipment needs. The procedure, along with the risks (including, but not limited to, infection and bleeding), benefits, and alternatives, was explained to the patient by the performing physician. The patient agreed to undergo the procedure. Medications and allergies were also reviewed. The radiologist and technologist were present throughout the entire procedure. Correlation is made to exams dated: 12/25/2022 (mammogram), 12/29/2023 (mammogram), 02/16/2024 (mammogram), 02/16/2024 (ultrasound) and 02/23/2024 (ultrasound). Site 1: Lesion in the right breast at 12 o'clock, 3 cm from the nipple Audible Time Out Time: 1356 Procedure Start Time: 1358 Procedure Stop Time: 1402 An ultrasound-guided biopsy using real-time ultrasound was performed for the concerning lesion located in the right breast at 12 o'clock, 3 cm from the nipple. This was described on the previous ultrasound report. The skin was prepped in the usual manner. Local anesthetic was administered. A skin jose was made. The abnormality was approached from the lateral aspect. A 14 gauge biopsy needle was placed adjacent to the abnormality under ultrasound guidance. Once the needle was documented to be in the correct location, 3 samples were obtained using a spring-loaded biopsy device. A ribbon biopsy marker was then placed under sonographic guidance. A skin closure strip and a sterile dressing were applied to the access site. The specimen was sent to the laboratory for pathological analysis. The specimen was sent to the laboratory for pathological analysis. Post-procedure mammogram: The ribbon biopsy marker is in appropriate position at the lesion. Post-procedure mammogram density: There are scattered areas of fibroglandular density. [facility] Provider, [facility] - 03/18/2024 * * *Final Report* * * DATE OF EXAM: Mar 18 2024 2:30PM [facility] 0598 - [facility] US BIOPSY BREAST RT / PROCEDURE REASON: Abnormal finding on breast imaging * * * * Physician Interpretation * * * * [facility] [address] [facility] [place] [address] #[id number] - [facility] US BIOPSY BREAST RT #[id number] - [facility] DIAG W ROJAS RT HISTORY: 64 year old patient presents for ultrasound guided core biopsy of the following: Site 1: Lesion located in the right breast at 12 o'clock, 3 cm from the nipple PATIENT CONSENT: A time out was performed immediately prior to procedure start with the radiology team, correctly identifying the patient name, date of , procedure, anatomy (including marking of site and side), patient position, relevant diagnostic and radiology test results, safety precautions, and procedure-specific equipment needs. The procedure, along with the risks (including, but not limited to, infection and bleeding), benefits, and alternatives, was explained to the patient by the performing physician. The patient agreed to undergo the procedure. Medications and allergies were also reviewed. The radiologist and technologist were present throughout the entire procedure. Correlation is made to exams dated: 12/25/2022 (mammogram), 12/29/2023 (mammogram), 02/16/2024 (mammogram), 02/16/2024 (ultrasound) and 02/23/2024 (ultrasound). Site 1: Lesion in the right breast at 12 o'clock, 3 cm from the nipple Audible Time Out Time: 1356 Procedure Start Time: 1358 Procedure Stop Time: 1402 An ultrasound-guided biopsy using real-time ultrasound was performed for the concerning lesion located in the right breast at 12 o'clock, 3 cm from the nipple. This was described on the previous ultrasound report. The skin was prepped in the usual manner. Local anesthetic was administered. A skin jose was made. The abnormality was approached from the lateral aspect. A 14 gauge biopsy needle was placed adjacent to the abnormality under ultrasound guidance. Once the needle was documented to be in the correct location, 3 samples were obtained using a spring-loaded biopsy device. A ribbon biopsy marker was then placed under sonographic guidance. A skin closure strip and a sterile dressing were applied to the access site. The specimen was sent to the laboratory for pathological analysis. The specimen was sent to the laboratory for pathological analysis. Post-procedure mammogram: The ribbon biopsy marker is in appropriate position at the lesion. Post-procedure mammogram density: There are scattered areas of fibroglandular density. IMPRESSION IMPRESSION: ULTRASOUND GUIDED BIOPSY Site 1: Ultrasound-guided biopsy of the lesion located in the right breast at 12 o'clock, 3 cm from the nipple with placement of a ribbon biopsy marker. Procedure was successful. Waiting for pathology result. An amendment will be issued to this report when pathology results become available. The ribbon biopsy marker is in appropriate position at the lesion. A moderate to large hematoma was observed, which was treated with local pressure until hemostasis was achieved. No sonographic evidence of active bleeding. The hematoma was softer and smaller by palpation after being treated with local pressure. The patient was given at home care instructions for further management, and given further instructions should hematoma worsen. Interpreting Radiologist: Yassine Meraz M.D. Electronically signed on: 03/18/2024 Racket Stringer: [email or web address] Transcribe Date/Time: Mar 18 2024 1:32P Dictated by : YASSINE MERAZ MD This examination was interpreted and the report reviewed and electronically signed by: YASSINE MERAZ MD on Mar 18 2024 3:45PM [facility] Radiology Study observation (narrative) [facility] BREAST LTD RTon 02-22 [facility]ial[facility] BREAST LTD RT * * *Final Report* * * DATE OF EXAM: Feb 23 2024 3:39PM [facility] [id number] - [facility] US BREAST LTD RT / PROCEDURE REASON: right breast mass * * * * Physician Interpretation * * * * [facility] [address] [facility] [place] [address] #[id number] - [facility] US BREAST LTD RT HISTORY: Patient is 64 years old and is seen for diagnostic evaluation of abnormal mammogram in the right breast. Patient states no personal history of breast cancer. Patient states no personal history of other cancers. COMPARISON STUDIES: The present examination has been compared to prior imaging studies dated 12/06/2019 (mammogram), 12/13/2020 (mammogram), 12/17/2021 (mammogram), 12/25/2022 (mammogram), 12/29/2023 (mammogram), 02/16/2024 (mammogram) and 02/16/2024 (ultrasound). ULTRASOUND TECHNIQUE: Targeted ultrasound of the indicated area was performed. Corona scale images were saved. ULTRASOUND FINDINGS: Repeat right breast ultrasound was performed in further evaluation of the questioned asymmetry in the upper central breast anterior depth. There is a possible correlative irregularly-shaped hypoechoic lesion at 12:00 3 cm from the nipple measuring 0.7 x 0.3 x 0.6 cm in size. There is adjacent vascularity. No posterior acoustic features. A wide region of the upper inner and upper outer quadrants were surveyed sonographically no additional abnormalities are seen. IMPRESSION: The 0.7 cm lesion in the right breast is suspicious for malignancy. Ultrasound-guided biopsy is recommended. Results and recommendations were discussed with the patient at the time of exam. Informed consent was explained electronically signed. The patient will schedule the recommended biopsy at her convenience. BI-RADS Category 4: Suspicious Interpreting Radiologist: Kacy Davis M.D. Electronically signed on: 02/23/2024 Racket Stringer: [email or web address] Transcribe Date/Time: Feb 23 2024 2:59P Dictated by : JEF VIRK MD This examination was interpreted and the report reviewed and electronically signed by: KACY DAVIS MD on Feb 23 2024 5:57PM EST [id number] CN Normal [facility] US Breast - right limitedon 02-23-2024 IMPRESSION: The 0.7 cm lesion in the right breast is suspicious for malignancy. Ultrasound-guided biopsy is recommended. Results and recommendations were discussed with the patient at the time of exam. Informed consent was explained electronically signed. The patient will schedule the recommended biopsy at her convenience. BI-RADS Category 4: Suspicious Interpreting Radiologist: Kacy Davis M.D. Electronically signed on: 02/23/2024 Racket Stringer: [email or web address] Transcribe Date/Time: Feb 23 2024 2:59P Dictated by : JEF VIRK MD This examination was interpreted and the report reviewed and electronically signed by: KACY DAVIS MD on Feb 23 2024 5:57PM EST [employer] * * *Final Report* * * DATE OF EXAM: Feb 23 2024 3:39PM [facility] [id number] - [facility] Kiala BREAST [facility] RT / PROCEDURE REASON: right breast mass * * * * Physician Interpretation * * * * [facility] [address] [id number] #[id number] - [facility] Kiala BREAST [facility] RT HISTORY: Patient is 64 years old and is seen for diagnostic evaluation of abnormal mammogram in the right breast. Patient states no personal history of breast cancer. Patient states no personal history of other cancers. COMPARISON STUDIES: The present examination has been compared to prior imaging studies dated 12/06/2019 (mammogram), 12/13/2020 (mammogram), 12/17/2021 (mammogram), 12/25/2022 (mammogram), 12/29/2023 (mammogram), 02/16/2024 (mammogram) and 02/16/2024 (ultrasound). ULTRASOUND TECHNIQUE: Targeted ultrasound of the indicated area was performed. Corona scale images were saved. ULTRASOUND FINDINGS: Repeat right breast ultrasound was performed in further evaluation of the questioned asymmetry in the upper central breast anterior depth. There is a possible correlative irregularly-shaped hypoechoic lesion at 12:00 3 cm from the nipple measuring 0.7 x 0.3 x 0.6 cm in size. There is adjacent vascularity. No posterior acoustic features. A wide region of the upper inner and upper outer quadrants were surveyed sonographically no additional abnormalities are seen. [employer] RADIOLOGY SYNGO Provider, [facility] - 02/23/2024 * * *Final Report* * * DATE OF EXAM: Feb 23 2024 3:39PM [facility] [id number] - [facility] US BREAST LTD RT / PROCEDURE REASON: right breast mass * * * * Physician Interpretation * * * * [facility] [address] [facility] [place] [id number] #[id number] - [facility] US BREAST LTD RT HISTORY: Patient is 64 years old and is seen for diagnostic evaluation of abnormal mammogram in the right breast. Patient states no personal history of breast cancer. Patient states no personal history of other cancers. COMPARISON STUDIES: The present examination has been compared to prior imaging studies dated 12/06/2019 (mammogram), 12/13/2020 (mammogram), 12/17/2021 (mammogram), 12/25/2022 (mammogram), 12/29/2023 (mammogram), 02/16/2024 (mammogram) and 02/16/2024 (ultrasound). ULTRASOUND TECHNIQUE: Targeted ultrasound of the indicated area was performed. Corona scale images were saved. ULTRASOUND FINDINGS: Repeat right breast ultrasound was performed in further evaluation of the questioned asymmetry in the upper central breast anterior depth. There is a possible correlative irregularly-shaped hypoechoic lesion at 12:00 3 cm from the nipple measuring 0.7 x 0.3 x 0.6 cm in size. There is adjacent vascularity. No posterior acoustic features. A wide region of the upper inner and upper outer quadrants were surveyed sonographically no additional abnormalities are seen. IMPRESSION IMPRESSION: The 0.7 cm lesion in the right breast is suspicious for malignancy. Ultrasound-guided biopsy is recommended. Results and recommendations were discussed with the patient at the time of exam. Informed consent was explained electronically signed. The patient will schedule the recommended biopsy at her convenience. BI-RADS Category 4: Suspicious Interpreting Radiologist: Kacy Davis M.D. Electronically signed on: 02/23/2024 Racket Stringer: [email or web address] Transcribe Date/Time: Feb 23 2024 2:59P Dictated by : JEF VIRK MD This examination was interpreted and the report reviewed and electronically signed by: KACY DAVIS MD on Feb 23 2024 5:57PM [facility] Radiology Study observation (narrative) [facility] US Breast - right limitedOrd ered By: [facility] Provider on 02-23-2024 [facility] DBT Breast - right diagnosti c for implanton 02-16-2024 IMPRESSION: No definite sonographic correlate to the mammographic asymmetry in the upper outer quadrant anterior depth. Repeat right breast ultrasound is recommended with a radiologist on site, given this exam was interpreted remotely. The above results and recommendations were discussed with the patient at the time of exam. The patient will be contacted to schedule the repeat ultrasound at her convenience. BI-RADS Category 0: Incomplete: Needs Additional Imaging Evaluation RISK: Based on the Tyrer-Cuzick (TC) risk assessment model, this patient has a 3.4% lifetime risk of developing breast cancer, meaning they are at average risk for developing breast cancer. However, this is only an estimate based on available history provided on the patient's questionnaire. We encourage all patients to talk with their providers about these results, further recommendations for managing breast health, and appropriate supplemental screening options if the patient has dense breast tissue. Interpreting Radiologist: Kacy Davis M.D. Electronically signed on: 02/16/2024 Racket Stringer: [email or web address] Transcribe Date/Time: Feb 16 2024 1:24P Dictated by : KACY DAVIS MD This examination was interpreted and the report reviewed and electronically signed by: KACY DAVIS MD on Feb 16 2024 5:26PM [facility] * * *Final Report* * * DATE OF EXAM: Feb 16 2024 1:43PM LDW 0629 - AMP[facility] BRITTANY W ROJAS RT / PROCEDURE REASON: N63.10 Right breast mass * * * * Physician Interpretation * * * * [place] [address] #[id number] - [facility] BRITTANY W ROJAS RT #[id number] - [facility] US BREAST LTD RT HISTORY: Patient is 64 years old and is seen for diagnostic evaluation of abnormal mammogram in the right breast. Patient states no personal history of breast cancer. Patient states no personal history of other cancers. COMPARISON STUDIES: The present examination has been compared to prior imaging studies dated 12/06/2019 (mammogram), 12/13/2020 (mammogram), 12/17/2021 (mammogram), 12/25/2022 (mammogram) and 12/29/2023 (mammogram). MAMMOGRAM TECHNIQUE: The study was acquired using full field digital technology and interpreted from soft copy. Digital Breast Tomosynthesis (DBT) images were obtained and used to assist in the interpretation of this examination. Computer-aided detection was utilized by the radiologist in the interpretation of this examination. MAMMOGRAM FINDINGS: There are scattered areas of fibroglandular density. There is a focal asymmetry in the right breast upper outer quadrant anterior depth. This is best seen on spot CC tomosynthesis slice 24 and MLO slice 35. ULTRASOUND TECHNIQUE: Targeted ultrasound of the indicated area was performed. Corona scale images were saved. ULTRASOUND FINDINGS: A possible 0.7 cm correlative lesion is measured at 12:00 3 cm from the nipple. However, the finding does not appear to maintain its configuration in both radial and antiradial planes. No clear mammographic correlate is identified. [facility] Provider, [facility] [place] - 02/16/2024 * * *Final Report* * * DATE OF EXAM: Feb 16 2024 1:43PM LDW 0629 - [facility] BRITTANY Pretty ROJAS RT / PROCEDURE REASON: N63.10 Right breast mass * * * * Physician Interpretation * * * * [place] [address] #[id number] - [facility] BRITTANY Pretty ROJAS RT #[id number] - [facility] US BREAST LTD RT HISTORY: Patient is 64 years old and is seen for diagnostic evaluation of abnormal mammogram in the right breast. Patient states no personal history of breast cancer. Patient states no personal history of other cancers. COMPARISON STUDIES: The present examination has been compared to prior imaging studies dated 12/06/2019 (mammogram), 12/13/2020 (mammogram), 12/17/2021 (mammogram), 12/25/2022 (mammogram) and 12/29/2023 (mammogram). MAMMOGRAM TECHNIQUE: The study was acquired using full field digital technology and interpreted from soft copy. Digital Breast Tomosynthesis (DBT) images were obtained and used to assist in the interpretation of this examination. Computer-aided detection was utilized by the radiologist in the interpretation of this examination. MAMMOGRAM FINDINGS: There are scattered areas of fibroglandular density. There is a focal asymmetry in the right breast upper outer quadrant anterior depth. This is best seen on spot CC tomosynthesis slice 24 and MLO slice 35. ULTRASOUND TECHNIQUE: Targeted ultrasound of the indicated area was performed. Corona scale images were saved. ULTRASOUND FINDINGS: A possible 0.7 cm correlative lesion is measured at 12:00 3 cm from the nipple. However, the finding does not appear to maintain its configuration in both radial and antiradial planes. No clear mammographic correlate is identified. IMPRESSION IMPRESSION: No definite sonographic correlate to the mammographic asymmetry in the upper outer quadrant anterior depth. Repeat right breast ultrasound is recommended with a radiologist on site, given this exam was interpreted remotely. The above results and recommendations were discussed with the patient at the time of exam. The patient will be contacted to schedule the repeat ultrasound at her convenience. BI-RADS Category 0: Incomplete: Needs Additional Imaging Evaluation RISK: Based on the Tyrer-Cuzick (TC) risk assessment model, this patient has a 3.4% lifetime risk of developing breast cancer, meaning they are at average risk for developing breast cancer. However, this is only an estimate based on available history provided on the patient's questionnaire. We encourage all patients to talk with their providers about these results, further recommendations for managing breast health, and appropriate supplemental screening options if the patient has dense breast tissue. Interpreting Radiologist: Kacy Davis M.D. Electronically signed on: 02/16/2024 Racket Stringer: [email or web address] Transcriprice Date/Time: Feb 16 2024 1:24P Dictated by : KACY DAVIS MD This examination was interpreted and the report reviewed and electronically signed by: KACY DAVIS MD on Feb 16 2024 5:26PM [facility] Radiology Study [facility] (narrative) [facility] Pretty ROJAS RTon 024 AMPARO XIE RT * * *Final Report* * * DATE OF EXAM: Feb 16 2024 1:43PM JEREM[facility] 0629 - AMPARO JULIANO RT / PROCEDURE REASON: N63.10 Right breast mass * * * * Physician Interpretation * * * * [place] [id number] #[id number] - [facility] BRITTANY Pretty ROJAS RT #[id number] - [facility] US BREAST LTD RT HISTORY: Patient is 64 years old and is seen for diagnostic evaluation of abnormal mammogram in the right breast. Patient states no personal history of breast cancer. Patient states no personal history of other cancers. COMPARISON STUDIES: The present examination has been compared to prior imaging studies dated 12/06/2019 (mammogram), 12/13/2020 (mammogram), 12/17/2021 (mammogram), 12/25/2022 (mammogram) and 12/29/2023 (mammogram). MAMMOGRAM TECHNIQUE: The study was acquired using full field digital technology and interpreted from soft copy. Digital Breast Tomosynthesis (DBT) images were obtained and used to assist in the interpretation of this examination. Computer-aided detection was utilized by the radiologist in the interpretation of this examination. MAMMOGRAM FINDINGS: There are scattered areas of fibroglandular density. There is a focal asymmetry in the right breast upper outer quadrant anterior depth. This is best seen on spot CC tomosynthesis slice 24 and MLO slice 35. ULTRASOUND TECHNIQUE: Targeted ultrasound of the indicated area was performed. Corona scale images were saved. ULTRASOUND FINDINGS: A possible 0.7 cm correlative lesion is measured at 12:00 3 cm from the nipple. However, the finding does not appear to maintain its configuration in both radial and antiradial planes. No clear mammographic correlate is identified. IMPRESSION: No definite sonographic correlate to the mammographic asymmetry in the upper outer quadrant anterior depth. Repeat right breast ultrasound is recommended with a radiologist on site, given this exam was interpreted remotely. The above results and recommendations were discussed with the patient at the time of exam. The patient will be contacted to schedule the repeat ultrasound at her convenience. BI-RADS Category 0: Incomplete: Needs Additional Imaging Evaluation RISK: Based on the Tyrer-Cuzick (TC) risk assessment model, this patient has a 3.4% lifetime risk of developing breast cancer, meaning they are at average risk for developing breast cancer. However, this is only an estimate based on available history provided on the patient's questionnaire. We encourage all patients to talk with their providers about these results, further recommendations for managing breast health, and appropriate supplemental screening options if the patient has dense breast tissue. Interpreting Radiologist: Kacy Davis M.D. Electronically signed on: 02/16/2024 Racket Stringer: [email or web address] Transcribe Date/Time: Feb 16 2024 1:24P Dictated by : KACY DAVIS MD This examination was interpreted and the report reviewed and electronically signed by: KACY DAVIS MD on Feb 16 2024 5:26PM EST [id number] CN Normal [facility] US BREAST LTD RTon 02-15 [facility] US BREAST LTD RT * * *Final Report* * * DATE OF EXAM: Feb 16 2024 2:49PM LDW 0594 - [facility] US BREAST LTD RT / PROCEDURE REASON: N63.10 Right breast mass * * * * Physician Interpretation * * * * [place] [address] #[id number] - [facility] DIAG W ROJAS RT #[id number] - [facility] US BREAST LTD RT HISTORY: Patient is 64 years old and is seen for diagnostic evaluation of abnormal mammogram in the right breast. Patient states no personal history of breast cancer. Patient states no personal history of other cancers. COMPARISON STUDIES: The present examination has been compared to prior imaging studies dated 12/06/2019 (mammogram), 12/13/2020 (mammogram), 12/17/2021 (mammogram), 12/25/2022 (mammogram) and 12/29/2023 (mammogram). MAMMOGRAM TECHNIQUE: The study was acquired using full field digital technology and interpreted from soft copy. Digital Breast Tomosynthesis (DBT) images were obtained and used to assist in the interpretation of this examination. Computer-aided detection was utilized by the radiologist in the interpretation of this examination. MAMMOGRAM FINDINGS: There are scattered areas of fibroglandular density. There is a focal asymmetry in the right breast upper outer quadrant anterior depth. This is best seen on spot CC tomosynthesis slice 24 and MLO slice 35. ULTRASOUND TECHNIQUE: Targeted ultrasound of the indicated area was performed. Corona scale images were saved. ULTRASOUND FINDINGS: A possible 0.7 cm correlative lesion is measured at 12:00 3 cm from the nipple. However, the finding does not appear to maintain its configuration in both radial and antiradial planes. No clear mammographic correlate is identified. IMPRESSION: No definite sonographic correlate to the mammographic asymmetry in the upper outer quadrant anterior depth. Repeat right breast ultrasound is recommended with a radiologist on site, given this exam was interpreted remotely. The above results and recommendations were discussed with the patient at the time of exam. The patient will be contacted to schedule the repeat ultrasound at her convenience. BI-RADS Category 0: Incomplete: Needs Additional Imaging Evaluation RISK: Based on the Tyrer-Cuzick (TC) risk assessment model, this patient has a 3.4% lifetime risk of developing breast cancer, meaning they are at average risk for developing breast cancer. However, this is only an estimate based on available history provided on the patient's questionnaire. We encourage all patients to talk with their providers about these results, further recommendations for managing breast health, and appropriate supplemental screening options if the patient has dense breast tissue. Interpreting Radiologist: Kacy Davis M.D. Electronically signed on: 02/16/2024 Racket Stringer: [email or web address] Transcribe Date/Time: Feb 16 2024 2:21P Dictated by : KACY DAVIS MD This examination was interpreted and the report reviewed and electronically signed by: KACY DAVIS MD on Feb 16 2024 5:26PM EST [id number] CN Normal [facility] No Panel InformationOrdered By: [facility] Provider on 02-16-2024 [facility] US Breast - right limitedon 02-16-2024 IMPRESSION: No definite sonographic correlate to the mammographic asymmetry in the upper outer quadrant anterior depth. Repeat right breast ultrasound is recommended with a radiologist on site, given this exam was interpreted remotely. The above results and recommendations were discussed with the patient at the time of exam. The patient will be contacted to schedule the repeat ultrasound at her convenience. BI-RADS Category 0: Incomplete: Needs Additional Imaging Evaluation RISK: Based on the Tyrer-Cuzick (TC) risk assessment model, this patient has a 3.4% lifetime risk of developing breast cancer, meaning they are at average risk for developing breast cancer. However, this is only an estimate based on available history provided on the patient's questionnaire. We encourage all patients to talk with their providers about these results, further recommendations for managing breast health, and appropriate supplemental screening options if the patient has dense breast tissue. Interpreting Radiologist: Kacy Davis M.D. Electronically signed on: 02/16/2024 Racket Stringer: KALPESH Transcribe Date/Time: Feb 16 2024 2:21P Dictated by : KACY DAVIS MD This examination was interpreted and the report reviewed and electronically signed by: KACY DAVIS MD on Feb 16 2024 5:26PM [facility] * * *Final Report* * * DATE OF EXAM: Feb 16 2024 2:49PM LDW 0594 - [facility] [place] BREAST [facility] RT / PROCEDURE REASON: N63.10 Right breast mass * * * * Physician Interpretation * * * * [place] [address] #[id number] - [facility] DIAG W ROJAS RT #[id number] - [facility] [place] BREAST LTD RT HISTORY: Patient is 64 years old and is seen for diagnostic evaluation of abnormal mammogram in the right breast. Patient states no personal history of breast cancer. Patient states no personal history of other cancers. COMPARISON STUDIES: The present examination has been compared to prior imaging studies dated 12/06/2019 (mammogram), 12/13/2020 (mammogram), 12/17/2021 (mammogram), 12/25/2022 (mammogram) and 12/29/2023 (mammogram). MAMMOGRAM TECHNIQUE: The study was acquired using full field digital technology and interpreted from soft copy. Digital Breast Tomosynthesis (DBT) images were obtained and used to assist in the interpretation of this examination. Computer-aided detection was utilized by the radiologist in the interpretation of this examination. MAMMOGRAM FINDINGS: There are scattered areas of fibroglandular density. There is a focal asymmetry in the right breast upper outer quadrant anterior depth. This is best seen on spot CC tomosynthesis slice 24 and MLO slice 35. ULTRASOUND TECHNIQUE: Targeted ultrasound of the indicated area was performed. Corona scale images were saved. ULTRASOUND FINDINGS: A possible 0.7 cm correlative lesion is measured at 12:00 3 cm from the nipple. However, the finding does not appear to maintain its configuration in both radial and antiradial planes. No clear mammographic correlate is identified. [facility] Provider, [facility] [place] - 02/16/2024 * * *Final Report* * * DATE OF EXAM: Feb 16 2024 2:49PM LDW 0594 - [facility] [place] BREAST LTD RT / PROCEDURE REASON: N63.10 Right breast mass * * * * Physician Interpretation * * * * [place] [address] #[id number] - [facility] DIAG W ROJAS RT #[id number] - [facility] [place] BREAST [facility] RT HISTORY: Patient is 64 years old and is seen for diagnostic evaluation of abnormal mammogram in the right breast. Patient states no personal history of breast cancer. Patient states no personal history of other cancers. COMPARISON STUDIES: The present examination has been compared to prior imaging studies dated 12/06/2019 (mammogram), 12/13/2020 (mammogram), 12/17/2021 (mammogram), 12/25/2022 (mammogram) and 12/29/2023 (mammogram). MAMMOGRAM TECHNIQUE: The study was acquired using full field digital technology and interpreted from soft copy. Digital Breast Tomosynthesis (DBT) images were obtained and used to assist in the interpretation of this examination. Computer-aided detection was utilized by the radiologist in the interpretation of this examination. MAMMOGRAM FINDINGS: There are scattered areas of fibroglandular density. There is a focal asymmetry in the right breast upper outer quadrant anterior depth. This is best seen on spot CC tomosynthesis slice 24 and MLO slice 35. ULTRASOUND TECHNIQUE: Targeted ultrasound of the indicated area was performed. Corona scale images were saved. ULTRASOUND FINDINGS: A possible 0.7 cm correlative lesion is measured at 12:00 3 cm from the nipple. However, the finding does not appear to maintain its configuration in both radial and antiradial planes. No clear mammographic correlate is identified. IMPRESSION IMPRESSION: No definite sonographic correlate to the mammographic asymmetry in the upper outer quadrant anterior depth. Repeat right breast ultrasound is recommended with a radiologist on site, given this exam was interpreted remotely. The above results and recommendations were discussed with the patient at the time of exam. The patient will be contacted to schedule the repeat ultrasound at her convenience. BI-RADS Category 0: Incomplete: Needs Additional Imaging Evaluation RISK: Based on the Tyrer-Cuzick (TC) risk assessment model, this patient has a 3.4% lifetime risk of developing breast cancer, meaning they are at average risk for developing breast cancer. However, this is only an estimate based on available history provided on the patient's questionnaire. We encourage all patients to talk with their providers about these results, further recommendations for managing breast health, and appropriate supplemental screening options if the patient has dense breast tissue. Interpreting Radiologist: Kacy Davis M.D. Electronically signed on: 02/16/2024 Racket Stringer: KALPESH Transcribe Date/Time: Feb 16 2024 2:21P Dictated by : KACY DAVIS MD This examination was interpreted and the report reviewed and electronically signed by: KACY DAVIS MD on Feb 16 2024 5:26PM [facility] Radiology Study observation (narrative) [facility] AMPARO SCREENING W TOMOon 12-28 [facility] SCREENING W ROJAS * * *Final Report* * * DATE OF EXAM: Dec 29 2023 5:44PM LDW 0582 - AMPARO SCREENING W ROJAS / PROCEDURE REASON: Encounter for screening mammogram for malignant neoplasm of breast [Z12.31] * * * * Physician Interpretation * * * * [place] [id number] HISTORY: Patient is 63 years old and is seen for screening. No current complaints. The patient has no personal history of cancer. COMPARISON STUDIES: The present examination has been compared to prior imaging studies dated 11/09/2018 (mammogram), 12/06/2019 (mammogram), 12/13/2020 (mammogram), 12/17/2021 (mammogram) and 12/25/2022 (mammogram). MAMMOGRAM TECHNIQUE: The study was acquired using full field digital technology and interpreted from soft copy. Digital Breast Tomosynthesis (DBT) images were obtained and used to assist in the interpretation of this examination. Computer-aided detection was utilized by the radiologist in the interpretation of this examination. MAMMOGRAM FINDINGS: There are scattered areas of fibroglandular density. There is a focal asymmetry in the subareolar region of the right breast. No suspicious masses, calcifications or other abnormalities are seen in the left breast. IMPRESSION: Focal asymmetry in the right breast requires additional evaluation. A diagnostic mammogram and possible ultrasound is recommended. BI-RADS Category 0: Incomplete: Needs Additional Imaging Evaluation RISK: Based on the Tyrer-Cuzick (TC) risk assessment model, this patient has a 3.6% lifetime risk of developing breast cancer, meaning they are at average risk for developing breast cancer. However, this is only an estimate based on available history provided on the patient's questionnaire. We encourage all patients to talk with their providers about these results, further recommendations for managing breast health, and appropriate supplemental screening options if the patient has dense breast tissue. Interpreting Radiologist: Randi Sanchez M.D. Electronically signed on: 12/30/2023 Racket Stringer: [email or web address] Transcribe Date/Time: Dec 29 2023 5:15P Dictated by : RANDI SANCHEZ MD This examination was interpreted and the report reviewed and electronically signed by: RANDI SANCHEZ MD on Dec 30 2023 2:59PM EST [id number] CN Normal [facility] CBC W/Diff, Automatedon - Absolute Lymph 2.46 X10 3/uL Normal 0.83-4.51 [facility] Comment on above: Performed By: #### L 100.0100, L501.9985, L500.4050, L500.4100, L501.5200 #### [facility] [address] [place], [address] Absolute Neut 6.2 X10 3/uL Normal 2.0-7.7 [facility] Comment on above: Performed By: #### L 100.0100, L501.9985, L500.4050, L500.4100, L501.5200 #### [facility] [address] [place], [address] Basophils/100 WBC (Bld) 0.7 % Normal 0-1 [facility] Comment on above: Performed By: #### L 100.0100, L501.9985, L500.4050, L500.4100, L501.5200 #### [facility] [address] [place], [address] Eosinophils/100 WBC (Bld) 8.1 % High 0-5 [facility] Comment on above: Performed By: #### L 100.0100, L501.9985, L500.4050, L500.4100, L501.5200 #### [facility] [address] [place], [address] Erythrocyte distribution width (RBC) [Ratio] 12.3 % Normal 11.6-14.6 [facility] Comment on above: Performed By: #### L 100.0100, L501.9985, L500.4050, L500.4100, L501.5200 #### [facility] [address] [place], [address] Hematocrit (Bld) [Volume fraction] 41.6 % Normal 37-47 [facility] Comment on above: Performed By: #### L 100.0100, L501.9985, L500.4050, L500.4100, L501.5200 #### [facility] [address] [place], [address] Hemoglobin (Bld) [Mass/Vol] 14.4 g/dL Normal 12.0-15.0 [facility] Comment on above: Performed By: #### L 100.0100, L501.9985, L500.4050, L500.4100, L501.5200 #### [facility] [address] [place], [address] IG% 0.500 Normal 0.0-0.9 [facility] Comment on above: Result Comment: IG% - Immature Granulocytes (promyelocytes, myelocytes and metamyelocytes) > 1% indicates that a LEFT SHIFT is Present. Performed By: #### L 100.0100, L501.9985, L500.4050, L500.4100, L501.5200 #### [facility] [facility] [address] [place], [address] Lymphocytes/100 WBC (Bld) 23.8 % Normal 19-41 [facility] Comment on above: Performed By: #### L 100.0100, L501.9985, L500.4050, L500.4100, L501.5200 #### [facility] [address] [place], [address] MCH (RBC) [Entitic mass] 33.7 pg High 27.0-32.0 [facility] Comment on above: Performed By: #### L 100.0100, L501.9985, L500.4050, L500.4100, L501.5200 #### [facility] [address] [place], [address] MCHC (RBC) [Mass/Vol] 34.6 g/dL Normal 32-36 [facility] Comment on above: Performed By: #### L 100.0100, L501.9985, L500.4050, L500.4100, L501.5200 #### [facility] [address] [place], [address] MCV (RBC) [Entitic vol] 97.4 fL Normal 81-99 [facility] Comment on above: Performed By: #### L 100.0100, L501.9985, L500.4050, L500.4100, L501.5200 #### [facility] [address] [place], [address] Monocytes/100 WBC (Bld) 7.1 % Normal 0-10 [facility] Comment on above: Performed By: #### L 100.0100, L501.9985, L500.4050, L500.4100, L501.5200 #### [facility] [address] [place], [address] Neutrophils/100 WBC (Bld) 59.8 % Normal 47-70 [facility] Comment on above: Performed By: #### L 100.0100, L501.9985, L500.4050, L500.4100, L501.5200 #### [facility] [address] [place], [address] Nucleated RBC (Bld) [#/Vol] 0 10*3/uL Normal 0-5 [facility] Comment on above: Performed By: #### L 100.0100, L501.9985, L500.4050, L500.4100, L501.5200 #### [facility] [address] [place], [address] Platelet mean volume (Bld) [Entitic vol] 10.8 fL Normal 6.2-12.0 [facility] Comment on above: Performed By: #### L 100.0100, L501.9985, L500.4050, L500.4100, L501.5200 #### [facility] [address] [place], [address] Platelets (Bld) [#/Vol] 216 10*3/uL Normal 150-450 [facility] Comment on above: Performed By: #### L 100.0100, L501.9985, L500.4050, L500.4100, L501.5200 #### [facility] [address] [place], [address] RBC (Bld) [#/Vol] 4.27 10*6/uL Normal 4.2-5.[address] [facility] Comment on above: Performed By: #### L 100.0100, L501.9985, L500.4050, L500.4100, L501.5200 #### [facility] [address] [place], [address] RDW SD 43.8 fl Normal 35.1-43.9 [facility] Comment on above: Performed By: #### L 100.0100, L501.9985, L500.4050, L500.4100, L501.5200 #### [facility] [address] [place], [address] WBC (Bld) [#/Vol] 10.3 10*3/uL Normal 4.4-11.[address] [facility] Comment on above: Performed By: #### L 100.0100, L501.9985, L500.4050, L500.4100, L501.5200 #### [facility] [address] [place], [address] Comprehensive Metabolic Prof ilon 12-10-2023 Albumin [Mass/Vol] 3.9 g/dL Normal 3.2-5.0 [facility] Comment on above: Performed By: #### L 100.0100, L501.9985, L500.4050, L500.4100, L501.5200 #### [facility] [address] [place], [address] Albumin/Globulin [Mass ratio] 1.1 {ratio} Normal 0.9-2.4 [facility] Comment on above: Performed By: #### L 100.0100, L501.9985, L500.4050, L500.4100, L501.5200 #### [facility] [address] [place], [address] ALK P 74 U/L Normal 45-117 [facility] Comment on above: Performed By: #### L 100.0100, L501.9985, L500.4050, L500.4100, L501.5200 #### [facility] [address] [place], [address] ALT [Catalytic activity/Vol] 49 U/L Normal 13-56 [facility] Comment on above: Performed By: #### L 100.0100, L501.9985, L500.4050, L500.4100, L501.5200 #### [facility] [address] [place], [address] AST [Catalytic activity/Vol] 50 U/L High 15-37 [facility] Comment on above: Performed By: #### L 100.0100, L501.9985, L500.4050, L500.4100, L501.5200 #### [facility] [address] [place], [address] Bilirubin [Mass/Vol] 0.60 mg/dL Normal 0.20-1.[address] [facility] Comment on above: Result Comment: For patients on eltrombopag therapy, use of Dimension [place] TBIL is not recommended. Performed By: #### L 100.0100, L501.9985, L500.4050, L500.4100, L501.5200 #### [facility] [address] [place], [address] BUN/CRE 12.4 RATIO Normal 10-20 [facility] Comment on above: Performed By: #### L 100.0100, L501.9985, L500.4050, L500.4100, L501.5200 #### [facility] [address] [place], [address] CA,Total 10.0 mg/dL Normal 8.5-10.1 [facility] Comment on above: Performed By: #### L 100.0100, L501.9985, L500.4050, L500.4100, L501.5200 #### [facility] [address] [place], [address] Chloride [Moles/Vol] 103 mmol/L Normal 98-[address] [facility] Comment on above: Performed By: #### L 100.0100, L501.9985, L500.4050, L500.4100, L501.5200 #### [facility] [address] [place], [address] CO2 [Moles/Vol] 28.0 mmol/L Normal 21.0-32.0 [facility] Comment on above: Performed By: #### L 100.0100, L501.9985, L500.4050, L500.4100, L501.5200 #### [facility] [address] [place], [address] Creatinine [Mass/Vol] 1.05 mg/dL High 0.55-1.02 [facility] Comment on above: Result Comment: The validity of the calculated GFR GFRAA in patients over 70 years has not been determined. Clinical correlation is essential. Performed By: #### L 100.0100, L501.9985, L500.4050, L500.4100, L501.5200 #### [facility] [address] [place], [address] EST GFR - AA 68 mL/min Normal >60 [facility] Comment on above: Result Comment: Afri can Tristanian GFR Calc Performed By: #### L 100.0100, L501.9985, L500.4050, L500.4100, L501.5200 #### [facility] [address] [place], [address] GAP 7 Normal 5-15 [facility] Comment on above: Performed By: #### L 100.0100, L501.9985, L500.4050, L500.4100, L501.5200 #### [facility] [address] [place], [address] GFR/1.73 sq M.predicted among non-blacks MDRD (S/P/Bld) [Vol rate/Area] 56 mL/min/{1.73_m2} Low >60 [facility] Comment on above: Result Comment: Non- GFR Calc Performed By: #### L 100.0100, L501.9985, L500.4050, L500.4100, L501.5200 #### [facility] [address] [place], [address] Globulin (S) [Mass/Vol] 3.4 g/dL Normal 2.2-4.2 [facility] Comment on above: Performed By: #### L 100.0100, L501.9985, L500.4050, L500.4100, L501.5200 #### [facility] [address] [place], [address] Glucose [Mass/Vol] 123 mg/dL High 74-106 [facility] Comment on above: Result Comment: Fast ing Glucose result from 100 to 125 mg/dL suggests IMPAIRED HOMEOSTASIS per A.D.A. criteria. Performed By: #### L 100.0100, L501.9985, L500.4050, L500.4100, L501.5200 #### [facility] [address] [place], [address] Potassium [Moles/Vol] 3.9 mmol/L Normal 3.5-5.1 [facility] Comment on above: Performed By: #### L 100.0100, L501.9985, L500.4050, L500.4100, L501.5200 #### [facility] [address] [place], [address] Sodium [Moles/Vol] 138 mmol/L Normal 136-145 [facility] Comment on above: Performed By: #### L 100.0100, L501.9985, L500.4050, L500.4100, L501.5200 #### [facility] [address] [place], [address] T PROT 7.3 g/dL Normal 6.4-8.2 [facility] Comment on above: Performed By: #### L 100.0100, L501.9985, L500.4050, L500.4100, L501.5200 #### [facility] [address] [place], [address] Urea nitrogen [Mass/Vol] 13 mg/dL Normal 7-18 [facility] Comment on above: Performed By: #### L 100.0100, L501.9985, L500.4050, L500.4100, L501.5200 #### [facility] [address] [place], [address] Hemoglobin A1con 12-10-2023 HbA1c (Bld) [Mass fraction] 5.3 % Normal 3.8-5.6 [facility] Comment on above: Result Comment: Norm al < 5.7 % Prediabetic 5.7 - 6.4 % Diabetic >or= 6.5 % Please note range changes. Performed By: #### L 100.0100, L501.9985, L500.4050, L500.4100, L501.5200 #### [facility] [address] [place], [address] Lipid Profileon 12-10-2023 Cholesterol [Mass/Vol] 212 mg/dL High 200 [facility] Comment on above: Result Comment: <200 mg/dL Desirable 200-240 mg/dL Borderline >240 mg/dL High Risk Performed By: #### L 100.0100, L501.9985, L500.4050, L500.4100, L501.5200 #### [facility] [address] [place], [address] Cholesterol in HDL [Mass/Vol] 33 mg/dL Low [facility] Comment on above: Result Comment: The drugs N-Acetylcysteine and Metamizole may falsely depress this assay. Reference Range HDL <40 mg/dL Low HDL Cholesterol HDL >or= 60 mg/dL High HDL Cholesterol Performed By: #### L 100.0100, L501.9985, L500.4050, L500.4100, L501.5200 #### [facility] [address] [place], [address] LDL TNP Normal 0-130 [facility] Comment on above: Performed By: #### L 100.0100, L501.9985, L500.4050, L500.4100, L501.5200 #### [facility] [address] [place], [address] Triglyceride [Mass/Vol] 462 mg/dL High [facility] Comment on above: Result Comment: The drugs N-Acetylcysteine and Metamizole may falsely depress this assay. TRIGLYCERIDE IS GREATER THAN 400 mg/dL. LDL RESULT IS INVALID AND WILL NOT BE REPORTED. Serum Triglycerides Reference Interval Normal <150 mg/dL Borderline high 150 - 199 mg/dL High 200 - 499 mg/dL Very High > or = 500 mg/dL Performed By: #### L 100.0100, L501.9985, L500.4050, L500.4100, L501.5200 #### [facility] [address] [place], [address] VLDL TNP Normal 5-40 [facility] Comment on above: Performed By: #### L 100.0100, L501.9985, L500.4050, L500.4100, L501.5200 #### [facility] [address] [place], [address] Magnesiumon 12-10-2023 Magnesium [Mass/Vol] 1.5 mg/dL Low 1.6-2.[address] [facility] Comment on above: Performed By: #### L 100.0100, L501.9985, L500.4050, L500.4100, L501.5200 #### [facility] [address] [place], [address] Urine Cultureon 11-14-2023 URC Below infection level. Mixed Gram Pos Gram Neg Org [place] Count 1000-10,000 MIXC Mixed contaminants. Submit a new specimen if indicated. Normal [facility] Comment on above: Performed By: #### M 100.2200 #### [facility] [address] [place], [place], [address] Basophil percentageOrdered B y: Philippe Dai on 05-11-2023 Bilirubin [Mass/Vol] 0.50 mg/dL 0.20-1.[address] [facility] Comment on above: For patients on eltr ombopag therapy, use of Dimension [place] TBIL is not recommended. Chloride [Moles/Vol] 107 mmol/L 98-[address] [facility] Glucose [Mass/Vol] 205 mg/dL 74-106 [facility] Comment on above: Glucose result great er than or equal to 200 mg/dLsuggests DIABETES MELLITUS per A.D.A. criteria. Potassium [Moles/Vol] 3.9 mmol/L 3.5-5.1 [facility] Protein [Mass/Vol] 7.1 g/dL 6.4-8.2 [facility] Sodium [Moles/Vol] 138 mmol/L 136-145 [facility] CRP, High Sensitivity Cardia con 05-11-2023 CRP HIGH SENS 4.04 mg/L High [facility] Comment on above: Order Comment: 1 Result Comment: Low Relative Risk of CVD <1.0 mg/L Average Relative Risk of CVD 1.0 - 3.0 mg/L High Relative Risk of CVD >3.0 mg/L Performed By: #### L 501.9985, L501.4020, L501.6750, L501.9520, L500.4050 #### [facility] [address] [place], [place], [address] Comprehensive Metabolic Prof ilon 05-11-2023 Albumin [Mass/Vol] 3.9 g/dL Normal 3.2-5.0 [facility] Comment on above: Order Comment: 1 Performed By: #### L 501.9985, L501.4020, L501.6750, L501.9520, L500.4050 #### [facility] [address] [place], [address] Albumin/Globulin [Mass ratio] 1.2 {ratio} Normal 0.9-2.4 [facility] Comment on above: Order Comment: 1 Performed By: #### L 501.9985, L501.4020, L501.6750, L501.9520, L500.4050 #### [facility] [address] [place], [address] ALK P 76 U/L Normal 45-117 [facility] Comment on above: Order Comment: 1 Performed By: #### L 501.9985, L501.4020, L501.6750, L501.9520, L500.4050 #### [facility] [address] [place], [address] ALT [Catalytic activity/Vol] 43 U/L Normal 13-56 [facility] Comment on above: Order Comment: 1 Performed By: #### L 501.9985, L501.4020, L501.6750, L501.9520, L500.4050 #### [facility] [address] [place], [address] AST [Catalytic activity/Vol] 37 U/L Normal 15-37 [facility] Comment on above: Order Comment: 1 Performed By: #### L 501.9985, L501.4020, L501.6750, L501.9520, L500.4050 #### [facility] [address] [place], [address] Bilirubin [Mass/Vol] 0.50 mg/dL Normal 0.20-1.[address] [facility] Comment on above: Order Comment: 1 Result Comment: For patients on eltrombopag therapy, use of Dimension [place] TBIL is not recommended. Performed By: #### L 501.9985, L501.4020, L501.6750, L501.9520, L500.4050 #### [facility] [address] [place], [address] BUN/CRE 16.5 RATIO Normal 10-20 [facility] Comment on above: Order Comment: 1 Performed By: #### L 501.9985, L501.4020, L501.6750, L501.9520, L500.4050 #### [facility] [address] [place], [address] CA,Total 9.3 mg/dL Normal 8.5-10.1 [facility] Comment on above: Order Comment: 1 Performed By: #### L 501.9985, L501.4020, L501.6750, L501.9520, L500.4050 #### [facility] [address] [place], [address] Chloride [Moles/Vol] 107 mmol/L Normal 98-[address] [facility] Comment on above: Order Comment: 1 Performed By: #### L 501.9985, L501.4020, L501.6750, L501.9520, L500.4050 #### [facility] [address] [place], [address] CO2 [Moles/Vol] 24.0 mmol/L Normal 21.0-32.0 [facility] Comment on above: Order Comment: 1 Performed By: #### L 501.9985, L501.4020, L501.6750, L501.9520, L500.4050 #### [facility] [address] [place], [address] Creatinine [Mass/Vol] 1.21 mg/dL High 0.55-1.02 [facility] Comment on above: Order Comment: 1 Result Comment: The validity of the calculated GFR GFRAA in patients over 70 years has not been determined. Clinical correlation is essential. Performed By: #### L 501.9985, L501.4020, L501.6750, L501.9520, L500.4050 #### [facility] [address] [place], [address] EST GFR - AA 58 mL/min Low >60 [facility] Comment on above: Order Comment: 1 Result Comment: Afri can Tristanian GFR Calc Performed By: #### L 501.9985, L501.4020, L501.6750, L501.9520, L500.4050 #### [facility] [address] [place], [address] GAP 7 Normal 5-15 [facility] Comment on above: Order Comment: 1 Performed By: #### L 501.9985, L501.4020, L501.6750, L501.9520, L500.4050 #### [facility] [address] [place], [address] GFR/1.73 sq M.predicted among non-blacks MDRD (S/P/Bld) [Vol rate/Area] 48 mL/min/{1.73_m2} Low >60 [facility] Comment on above: Order Comment: 1 Result Comment: Non- GFR Calc Performed By: #### L 501.9985, L501.4020, L501.6750, L501.9520, L500.4050 #### [facility] [address] [place], [address] Globulin (S) [Mass/Vol] 3.2 g/dL Normal 2.2-4.2 [facility] Comment on above: Order Comment: 1 Performed By: #### L 501.9985, L501.4020, L501.6750, L501.9520, L500.4050 #### [facility] [address] [place], [address] Glucose [Mass/Vol] 205 mg/dL High 74-106 [facility] Comment on above: Order Comment: 1 Result Comment: Gluc ose result greater than or equal to 200 mg/dL suggests DIABETES MELLITUS per A.D.A. criteria. Performed By: #### L 501.9985, L501.4020, L501.6750, L501.9520, L500.4050 #### [facility] [address] [place], [address] Potassium [Moles/Vol] 3.9 mmol/L Normal 3.5-5.1 [facility] Comment on above: Order Comment: 1 Performed By: #### L 501.9985, L501.4020, L501.6750, L501.9520, L500.4050 #### [facility] [address] [place], [address] Sodium [Moles/Vol] 138 mmol/L Normal 136-145 [facility] Comment on above: Order Comment: 1 Performed By: #### L 501.9985, L501.4020, L501.6750, L501.9520, L500.4050 #### [facility] [address] [place], [address] T PROT 7.1 g/dL Normal 6.4-8.2 [facility] Comment on above: Order Comment: 1 Performed By: #### L 501.9985, L501.4020, L501.6750, L501.9520, L500.4050 #### [facility] [address] [place], [address] Urea nitrogen [Mass/Vol] 20 mg/dL High 7-18 [facility] Comment on above: Order Comment: 1 Performed By: #### L 501.9985, L501.4020, L501.6750, L501.9520, L500.4050 #### [facility] [address] [place], [address] Hemoglobin A1con 05-11-2023 HbA1c (Bld) [Mass fraction] 5.7 % High 3.8-5.6 [facility] Comment on above: Result Comment: Norm al < 5.7 % Prediabetic 5.7 - 6.4 % Diabetic >or= 6.5 % Please note range changes. Performed By: #### L 501.9985, L501.4020, L501.6750, L501.9520, L500.4050 #### [facility] [address] [place], [address] L501.4020on 05-11-2023 TROPONIN-I HS 7 pg/mL Normal 3.0-54.0 [facility] Comment on above: Order Comment: 1 Result Comment: Deisy juares Note: New Test Units and Gender Specific Reference Ranges. For more information see Policy Stat Procedure [place] High Sensitivity Troponin (TNIH) and attachments. Performed By: #### L 501.9985, L501.4020, L501.6750, L501.9520, L500.4050 #### [facility] [address] [place], [address] Laboratory - Chemistry and C hemistry - challengeOrdered By: Philippe Dai on 05-11-2023 Albumin/Globulin [Mass ratio] 1.2 {ratio} 0.9-2.4 [facility] ALP [Catalytic activity/Vol] 76 U/L 45-117 [facility] ALT [Catalytic activity/Vol] 43 U/L 13-56 [facility] CO2 [Moles/Vol] 24.0 mmol/L 21.0-32.0 [facility] Globulin (S) [Mass/Vol] 3.2 g/dL 2.2-4.2 [facility] Urea nitrogen/Creatinine [Mass ratio] 16.5 mg/mg 10-20 [facility] No Panel InformationOrdered By: Philippe Dai on 05-11-2023 C-Reactive Protein High Sensitivity 4.04 mg/L <3.00 [facility] Comment on above: Low Relative Risk of CVD <1.0 mg/L Average Relative Risk of CVD 1.0 - 3.0 mg/L High Relative Risk of CVD >3.0 mg/L Estimated GFR (MDRD) Amer 58 mL/min >60 [facility] Comment on above: GFR Calc Estimated GFR (MDRD) Non-Af Amer 48 mL/min >60 [facility] Comment on above: Non- GFR Calc Troponin I High Sensitivity 7 pg/mL 3.0-54.0 [facility] Comment on above: Please Note: New Marlene t Units and Gender Specific Reference Ranges. For more information see Policy Stat Procedure [place] High Sensitivity Troponin (TNIH) and attachments. Serum or plasma calcium ruddy urement (mass/volume)Ordered By: Philippe Dai on 05-11-2023 Calcium [Mass/Vol] 9.3 mg/dL 8.5-10.1 [facility] Serum or plasma creatinine m easurement (mass/volume)Ordered By: Philippe Dai on 05-11-2023 Creatinine [Mass/Vol] 1.21 mg/dL 0.55-1.02 [facility] Comment on above: The validity of the calculated GFR & GFRAA in patients over 70 years has not been determined. Clinical correlation is essential. Serum or plasma thyroid stim ulating hormone (TSH) measurement (units/volume)Ordered By: Philippe Dai on 05-11-2023 TSH Qn 2.06 uIU/mL 0.358-3.74 [facility] Serum or plasma urea nitroge n measurement (mass/volume)Ordered By: Philippe Dai on 05-11-2023 Urea nitrogen [Mass/Vol] 20 mg/dL 7-18 [facility] Thin prep Papanicolaou smear with manual screeningOrdered By: Philippe Dai on 05-11-2023 Thin prep Papanicolaou smear with manual screening 3.9 g/dL 3.2-5.0 [facility] Thin prep Papanicolaou smear with manual screening 37 U/L 15-37 [facility] Thin prep Papanicolaou smear with manual screening 7 5-15 [facility] Thyroid Stim Hormone (TSH)on 05-11-2023 TSH 2.06 uIU/mL Normal 0.358-3.74 [facility] Comment on above: Order Comment: 1 Performed By: #### L 100.0100, L501.9985, L500.4050, L500.4100, L501.5200 #### [facility] [place], [address] Whole blood hemoglobin A1c/t otal hemoglobin ratio (mass fraction)Ordered By: Philippe Dai on 05-11-2023 HbA1c (Bld) [Mass fraction] 5.7 % 3.8-5.6 [facility] Comment on above: Normal < 5.7 % Predi abetic 5.7 - 6.4 % Diabetic >or= 6.5 % Please note range changes. Whole blood hemoglobin A1c/t otal hemoglobin ratio (mass fraction)Ordered By: Philippe Dai on 11-28-2022 HbA1c (Bld) [Mass fraction] 5.5 % 3.8-5.6 [facility] Comment on above: Normal < 5.7 % Predi abetic 5.7 - 6.4 % Diabetic >or= 6.5 % Please note range changes. Absolute lymphocyte countOrd ered By: Philippe Dai on 11-27-2022 Lymphocytes Auto (Unsp spec) [#/Vol] 1.80 10*3/uL 0.83-4.51 [facility] Basophil percentageOrdered B y: Philippe Dai on 11-27-2022 Basophils/100 WBC (Bld) 0.5 % 0-1 [facility] Bilirubin [Mass/Vol] 0.50 mg/dL 0.20-1.[address] [facility] Comment on above: For patients on eltr ombopag therapy, use of Dimension [place] TBIL is not recommended. Chloride [Moles/Vol] 105 mmol/L 98-[address] [facility] Cholesterol [Mass/Vol] 174 mg/dL <200 [facility] Comment on above: <200 mg/dL Desirable 200-240 mg/dL Borderline >240 mg/dL High Risk Eosinophils/100 WBC (Bld) 8.6 % 0-5 [facility] Glucose [Mass/Vol] 133 mg/dL 74-106 [facility] Comment on above: Fasting Glucose resu lt greater than or equal to 126 mg/dL suggests DIABETES MELLITUS per A.D.A. criteria. Neutrophils (Bld) [#/Vol] 4.5 10*3/uL 2.0-7.7 [facility] Neutrophils/100 WBC (Bld) 59.0 % 47-70 [facility] Potassium [Moles/Vol] 4.8 mmol/L 3.5-5.1 [facility] Protein [Mass/Vol] 7.2 g/dL 6.4-8.2 [facility] Sodium [Moles/Vol] 137 mmol/L 136-145 [facility] Triglyceride [Mass/Vol] 357 mg/dL <199 [facility] Comment on above: The drugs N-Acetylcy steine and Metamizole may falsely depress this assay.Serum Triglycerides Reference Interval Normal <150 mg/dL Borderline high 150 - 199 mg/dL High 200 - 499 mg/dL Very High > or = 500 mg/dL WBC (Bld) [#/Vol] 7.6 10*3/uL 4.4-11.0 [facility] Blood erythrocytes count (nu mber/volume)Ordered By: Philippe Dai on 11-27-2022 RBC (Bld) [#/Vol] 3.97 10*6/uL 4.2-5.[address] [facility] Blood hemoglobin measurement (mass/volume)Ordered By: Philippe Dai on 11-27-2022 Hemoglobin (Bld) [Mass/Vol] 13.5 g/dL 12.0-15.0 [facility] Blood lymphocytes/100 leukoc ytesOrdered By: Philippe Dai on 11-27-2022 Lymphocytes/100 WBC (Bld) 23.6 % 19-41 [facility] Blood monocytes/100 leukocyt esOrdered By: Philippe Dai on 11-27-2022 Monocytes/100 WBC (Bld) 7.6 % 0-10 [facility] Blood platelet mean volumeOr dered By: Philippe Dai on 11-27-2022 Platelet mean volume (Bld) [Entitic vol] 11.3 fL 6.2-12.0 [facility] Determination of erythrocyte mean corpuscular volume (MCV)Ordered By: Philippe Dai on 11-27-2022 MCV (RBC) [Entitic vol] 102.5 fL 81-99 [facility] Hematocrit Auto (Bld) [Volum e fraction]Ordered By: Philippe Dai on 11-27-2022 Hematocrit (Bld) [Volume fraction] 40.7 % 37-47 [facility] Laboratory - Chemistry and C hemistry - challengeOrdered By: Philippe Dai on 11-27-2022 ALP [Catalytic activity/Vol] 73 U/L 45-117 [facility] ALT [Catalytic activity/Vol] 47 U/L 13-56 [facility] CO2 [Moles/Vol] 25.0 mmol/L 21.0-32.0 [facility] Globulin (S) [Mass/Vol] 3.3 g/dL 2.2-4.2 [facility] Urea nitrogen/Creatinine [Mass ratio] 10.4 mg/mg 10-20 [facility] Laboratory - Hematology and Cell countsOrdered By: Philippe Dai on 11-27-2022 Erythrocyte distribution width (RBC) [Entitic vol] 45.8 fL 35.1-43.9 [facility] Erythrocyte distribution width (RBC) [Ratio] 12.2 % 11.6-14.6 [facility] Immature granulocytes/100 WBC (Bld) 0.700 % 0.0-0.9 [facility] Comment on above: IG% - Immature Granu locytes (promyelocytes, myelocytes and metamyelocytes) > 1% indicates that a LEFT SHIFT is Present. MCH (RBC) [Entitic mass] 34.0 pg 27.0-32.0 [facility] Nucleated RBC/100 WBC (Bld) [Ratio] 0 % 0-5 [facility] MCHC Auto (RBC) [Mass/Vol]Or dered By: Philippe Dai on 11-27-2022 MCHC (RBC) [Mass/Vol] 33.2 g/dL 32-36 [facility] No Panel InformationOrdered By: Philippe Dai on 11-27-2022 Estimated GFR (MDRD) Amer 52 mL/min >60 [facility] Comment on above: GFR Calc Estimated GFR (MDRD) Non-Af Amer 43 mL/min >60 [facility] Comment on above: Non- GFR Calc Platelets bldOrdered By: Gregory Dai on 11-27-2022 Platelets (Bld) [#/Vol] 194 10*3/uL 150-450 [facility] Serum or plasma albumin ruddy urement (mass/volume)Ordered By: Philippe Dai on 11-27-2022 Albumin [Mass/Vol] 3.9 g/dL 3.2-5.0 [facility] Serum or plasma albumin/glob ulin mass ratioOrdered By: Philippe Dai on 11-27-2022 Albumin/Globulin [Mass ratio] 1.2 {ratio} 0.9-2.4 [facility] Serum or plasma calcium ruddy urement (mass/volume)Ordered By: Philippe Dai on 11-27-2022 Calcium [Mass/Vol] 9.7 mg/dL 8.5-10.1 [facility] Serum or plasma cholesterol in HDL measurement (mass/volume)Ordered By: Philippe Dai on 11-27-2022 Cholesterol in HDL [Mass/Vol] 26 mg/dL >40 [facility] Comment on above: The drugs N-Acetylcy steine and Metamizole may falsely depress this assay. Reference Range HDL <40 mg/dL Low HDL Cholesterol HDL >or= 60 mg/dL High HDL Cholesterol Serum or plasma cholesterol in VLDL measurement (mass/volume)Ordered By: Philippe Dai on 11-27-2022 Cholesterol in VLDL [Mass/Vol] 71 mg/dL 5-40 [facility] Serum or plasma creatinine m easurement (mass/volume)Ordered By: Philippe Dai on 11-27-2022 Creatinine [Mass/Vol] 1.34 mg/dL 0.55-1.02 [facility] Comment on above: The validity of the calculated GFR & GFRAA in patients over 70 years has not been determined. Clinical correlation is essential. Serum or plasma low density lipoprotein (LDL) cholesterol measurement (mass/volume)Ordered By: Philippe Dai on 11-27-2022 Cholesterol in LDL [Mass/Vol] 77 mg/dL 0-130 [facility] Serum or plasma urea nitroge n measurement (mass/volume)Ordered By: Philippe Dai on 11-27-2022 Urea nitrogen [Mass/Vol] 14 mg/dL 7-18 [facility] Thin prep Papanicolaou smear with manual screeningOrdered By: Philippe Dai on 11-27-2022 Thin prep Papanicolaou smear with manual screening 56 U/L 15-37 [facility] Thin prep Papanicolaou smear with manual screening 7 5-15 [facility] Absolute lymphocyte counton 12-03-2021 Lymphocytes Auto (Unsp spec) [#/Vol] 1.68 10*3/uL 0.83-4.51 [facility] Work Phone: Basophil percentageon 2021 Basophils/100 WBC (Bld) 0.5 % 0-1 [facility] Work Phone: Bilirubin [Mass/Vol] 0.60 mg/dL 0.20-1.[address] [facility] Work Phone: Comment on above: For patients on eltr ombopag therapy, use of Dimension [place] TBIL is not recommended. Chloride [Moles/Vol] 105 mmol/L 98-[address] [facility] Work Phone: Cholesterol [Mass/Vol] 187 mg/dL <200 [facility] Work Phone: Comment on above: <200 mg/dL Desirable 200-240 mg/dL Borderline >240 mg/dL High Risk Eosinophils/100 WBC (Bld) 4.7 % 0-5 [facility] Work Phone: Glucose [Mass/Vol] 142 mg/dL 74-106 [facility] Work Phone: Comment on above: Fasting Glucose resu lt greater than or equal to 126 mg/dL suggests DIABETES MELLITUS per A.D.A. criteria. Neutrophils (Bld) [#/Vol] 6.0 10*3/uL 2.0-7.7 [facility] Work Phone: Neutrophils/100 WBC (Bld) 67.3 % 47-70 [facility] Work Phone: Potassium [Moles/Vol] 4.2 mmol/L 3.5-5.1 [facility] Work Phone: Protein [Mass/Vol] 7.8 g/dL 6.4-8.2 [facility] Work Phone: Sodium [Moles/Vol] 139 mmol/L 136-145 [facility] Work Phone: Triglyceride [Mass/Vol] 250 mg/dL <199 [facility] Work Phone: Comment on above: The drugs N-Acetylcy steine and Metamizole may falsely depress this assay.Serum Triglycerides Reference Interval Normal <150 mg/dL Borderline high 150 - 199 mg/dL High 200 - 499 mg/dL Very High > or = 500 mg/dL WBC (Bld) [#/Vol] 8.9 10*3/uL 4.4-11.0 [facility] Work Phone: Blood erythrocytes count (nu mber/volume)on 12-03-2021 RBC (Bld) [#/Vol] 3.85 10*6/uL 4.2-5.[address] [facility] Work Phone: Blood hemoglobin measurement (mass/volume)on 12-03-2021 Hemoglobin (Bld) [Mass/Vol] 14.0 g/dL 12.0-15.0 [facility] Work Phone: Blood lymphocytes/100 leukoc yteson 12-03-2021 Lymphocytes/100 WBC (Bld) 19.0 % 19-41 [facility] Work Phone: Blood monocytes/100 leukocyt eson 12-03-2021 Monocytes/100 WBC (Bld) 8.2 % 0-10 [facility] Work Phone: Blood platelet mean volumeon 12-03-2021 Platelet mean volume (Bld) [Entitic vol] 11.8 fL 6.2-12.0 [facility] Work Phone: Determination of erythrocyte mean corpuscular volume (MCV)on 12-03-2021 MCV (RBC) [Entitic vol] 104.4 fL 81-99 [facility] Work Phone: Hematocrit Auto (Bld) [Volum e fraction]on 12-03-2021 Hematocrit (Bld) [Volume fraction] 40.2 % 37-47 [facility] Work Phone: Laboratory - Chemistry and C hemistry - challengeon 12-03-2021 ALP [Catalytic activity/Vol] 60 U/L 45-117 [facility] Work Phone: ALT [Catalytic activity/Vol] 39 U/L 13-56 [facility] Work Phone: CO2 [Moles/Vol] 24.0 mmol/L 21.0-32.0 [facility] Work Phone: Globulin (S) [Mass/Vol] 3.8 g/dL 2.2-4.2 [facility] Work Phone: Urea nitrogen/Creatinine [Mass ratio] 11.2 mg/mg 10-20 [facility] Work Phone: Laboratory - Hematology and Cell countson 12-03-2021 Erythrocyte distribution width (RBC) [Entitic vol] 50.6 fL 35.1-43.9 [facility] Work Phone: Erythrocyte distribution width (RBC) [Ratio] 13.4 % 11.6-14.6 [facility] Work Phone: Immature granulocytes/100 WBC (Bld) 0.300 % 0.0-0.9 [facility] Work Phone: Comment on above: IG% - Immature Granu locytes (promyelocytes, myelocytes and metamyelocytes) > 1% indicates that a LEFT SHIFT is Present. MCH (RBC) [Entitic mass] 36.4 pg 27.0-32.0 [facility] Work Phone: Nucleated RBC/100 WBC (Bld) [Ratio] 0 % 0-5 [facility] Work Phone: MCHC Auto (RBC) [Mass/Vol]on 12-03-2021 MCHC (RBC) [Mass/Vol] 34.8 g/dL 32-36 [facility] Work Phone: No Panel Informationon 12-03 Estimated GFR (MDRD) Amer 42 mL/min >60 [facility] Work Phone: Comment on above: GFR Calc Estimated GFR (MDRD) Non-Af Amer 35 mL/min >60 [facility] Work Phone: Comment on above: Non- GFR Calc Platelets bldon 12-03-2021 Platelets (Bld) [#/Vol] 178 10*3/uL 150-450 [facility] Work Phone: Serum or plasma albumin ruddy urement (mass/volume)on 12-03-2021 Albumin [Mass/Vol] 4.0 g/dL 3.2-5.0 [facility] Work Phone: Serum or plasma albumin/glob ulin mass ratioon 12-03-2021 Albumin/Globulin [Mass ratio] 1.1 {ratio} 0.9-2.4 [facility] Work Phone: Serum or plasma calcium ruddy urement (mass/volume)on 12-03-2021 Calcium [Mass/Vol] 11.7 mg/dL 8.5-10.1 [facility] Work Phone: Serum or plasma cholesterol in HDL measurement (mass/volume)on 12-03-2021 Cholesterol in HDL [Mass/Vol] 34 mg/dL >40 [facility] Work Phone: Comment on above: The drugs N-Acetylcy steine and Metamizole may falsely depress this assay. Reference Range HDL <40 mg/dL Low HDL Cholesterol HDL >or= 60 mg/dL High HDL Cholesterol Serum or plasma cholesterol in VLDL measurement (mass/volume)on 12-03-2021 Cholesterol in VLDL [Mass/Vol] 50 mg/dL 5-40 [facility] Work Phone: Serum or plasma creatinine m easurement (mass/volume)on 12-03-2021 Creatinine [Mass/Vol] 1.61 mg/dL 0.55-1.02 [facility] Work Phone: Comment on above: The validity of the calculated GFR & GFRAA in patients over 70 years has not been determined. Clinical correlation is essential. Serum or plasma low density lipoprotein (LDL) cholesterol measurement (mass/volume)on 12-03-2021 Cholesterol in LDL [Mass/Vol] 103 mg/dL 0-130 [facility] Work Phone: Serum or plasma urea nitroge n measurement (mass/volume)on 12-03-2021 Urea nitrogen [Mass/Vol] 18 mg/dL 7-18 [facility] Work Phone: Thin prep Papanicolaou smear with manual screeningon 12-03-2021 Thin prep Papanicolaou smear with manual screening 47 U/L 15-37 [facility] Work Phone: Thin prep Papanicolaou smear with manual screening 10 5-15 [facility] Work Phone: AMPARO SCREENINGon 12-06-2019 [facility] SCREENING Final Report DATE OF EXAM: Dec 06 2019 4:19PM LDW [id number] - [facility] SCREENING / PROCEDURE REASON: Z 12.31 Physician Interpretation #[id number] - [facility] SCREENING BILATERAL DIGITAL SCREENING MAMMOGRAM WITH CAD: 12/06/2019 HISTORY: Routine screening mammogram. Patient reports no breast problems. RESULT: TECHNIQUE: The study was acquired using full field digital technology and interpreted from soft copy. Current study was also evaluated with a Computer Aided Detection (CAD). Comparison is made to exams dated: 11/09/2018 mammogram, 10/27/2017 mammogram, 10/23/2016 mammogram, 10/16/2015 mammogram - [facility], 04/27/2015 mammogram, and 10/19/2014 mammogram - [facility]. There are scattered fibroglandular elements in both breasts. There is a biopsy clip in the left breast. No significant masses, calcifications, or other findings are seen in either breast. There has been no significant interval change. IMPRESSION: NEGATIVE There is no mammographic evidence of malignancy. A 1 year screening mammogram is recommended. Joseph Bhatia M.D. tab/penrad:12/07/2019 07:39:40 Lasting Machine Operator Hand Method(s): Victorino Chacon (R)(M), [facility] letter sent: Normal over 40 Mammogram BI-RADS: 1 Negative Multiple national specialty organizations have released breast cancer screening guidelines for women at average risk for developing breast cancer - guidelines that are based on both evidence and opinion, yet differ on when to start and how often to screen for breast cancer. With representation from Breast Imaging, Internal Medicine, Women's Health, Family Medicine, and Medical/Surgical Oncology, the [facility] has carefully reviewed the data and reached the following consensus: 1) All women should engage in shared decision-making with their providers to decide when to start and how often to screen; 2) All women should have the opportunity to start screening mammography at age 40; 3) For women ages 45-55, we recommend annual screening mammograms; 4) For women ages 55 and over, we support both the transition from an annual to a biennial interval if this aligns more with patient's values and preferences, or continuation with annual screening; 5) All women should discuss with their providers when to stop screening mammograms. Racket Stringer: Kanchan Transcribe Date/Time: Dec 06 2019 4:05P Dictated by : JOSEPH BHATIA MD This examination was interpreted and the report reviewed and electronically signed by: JOSEPH BHATIA MD on Dec 07 2019 7:39AM EST Normal [facility] Vital Signs Date Time Vital Sign Value Performing Clinician Benito jones 03-30-2024 14:51-0500 Body height 170.2 cm Alexa Suarez MD Work Phone: [facility] 03-30-2024 14:51-0500 Body mass index (BMI) [Ratio] 27.72 kg/m2 Alexa Suarez MD Work Phone: [facility] 03-30-2024 14:51-0500 Body weight 80.29 kg Alexa Suarez MD Work Phone: [facility] 03-30-2024 14:51-0500 Diastolic blood pressure 90 mm[Hg] Alexa Suarez MD Work Phone: [facility] 03-30-2024 14:51-0500 Heart rate 96 /min Alexa Suarez MD Work Phone: [facility] 03-30-2024 14:51-0500 Systolic blood pressure 171 mm[Hg] Alexa Suarez MD Work Phone: [facility] 05-11-2023 19:48-0500 Body height 167.64 cm [facility] 05-11-2023 19:48-0500 Body mass index (BMI) [Ratio] 30.2 kg/m2 [facility] 05-11-2023 19:48-0500 Body temperature 97.9 [degF] [facility] 05-11-2023 19:48-0500 Body weight 84.82 kg [facility] 05-11-2023 19:48-0500 Diastolic blood pressure 78 mm[Hg] [facility] 05-11-2023 19:48-0500 Heart rate 101 /min [facility] 05-11-2023 19:48-0500 Respiratory rate 8 /min [facility] 05-11-2023 19:48-0500 SaO2% (BldA) [Mass fraction] 98 % [facility] 05-11-2023 19:48-0500 Systolic blood pressure 150 mm[Hg] [facility] 11-27-2022 17:58-0400 Body height 167.64 cm [facility] 11-27-2022 17:58-0400 Body mass index (BMI) [Ratio] 30.9 kg/m2 [facility] 11-27-2022 17:58-0400 Body temperature 97.2 [degF] [facility] 11-27-2022 17:58-0400 Body weight 87.08 kg [facility] 11-27-2022 17:58-0400 Diastolic blood pressure 70 mm[Hg] [facility] 11-27-2022 17:58-0400 Heart rate 77 /min [facility] 11-27-2022 17:58-0400 Respiratory rate 18 /min [facility] 11-27-2022 17:58-0400 SaO2% (BldA) [Mass fraction] 99 % [facility] 11-27-2022 17:58-0400 Systolic blood pressure 160 mm[Hg] [facility] 09-04-2022 19:53-0400 Body mass index (BMI) [Ratio] 37.7 kg/m2 [facility] 09-04-2022 19:53-0400 Body temperature 97.3 [degF] [facility] 09-04-2022 19:53-0400 Body weight 87.54 kg [facility] 09-04-2022 19:53-0400 Diastolic blood pressure 80 mm[Hg] [facility] 09-04-2022 19:53-0400 Heart rate 81 /min [facility] 09-04-2022 19:53-0400 Respiratory rate 18 /min [facility] 09-04-2022 19:53-0400 SaO2% (BldA) [Mass fraction] 97 % [facility] 09-04-2022 19:53-0400 Systolic blood pressure 118 mm[Hg] [facility] 12-03-2021 17:15-0400 Body height 152.4 cm [facility] Work Phone: 12-03-2021 17:15-0400 Body mass index (BMI) [Ratio] 36.1 kg/m2 [facility] Work Phone: 12-03-2021 17:15-0400 Body temperature 97.5 [degF] [facility] Work Phone: 12-03-2021 17:15-0400 Body weight 83.91 kg [facility] Work Phone: 12-03-2021 17:15-0400 Diastolic blood pressure 85 mm[Hg] [facility] Work Phone: 12-03-2021 17:15-0400 Heart rate 88 /min [facility] Work Phone: 12-03-2021 17:15-0400 Respiratory rate 18 /min [facility] Work Phone: 12-03-2021 17:15-0400 SaO2% (BldA) [Mass fraction] 98 % [facility] Work Phone: 12-03-2021 17:15-0400 Systolic blood pressure 158 mm[Hg] [facility] Work Phone: Encounters Encounter Date Encounter Type Care Provider Facility Start: 11-28-2024 End: 11-28-2024 ambulatory GEORGE PRESSLEY Facility:[facility] Start: 11-28-2024 End: 11-28-2024 Patient encounter procedure George Pressley PA-C Work Phone: Otolaryngology Comment on above: Gastroesophageal ref lux disease, unspecified whether esophagitis present; Tongue burning sensation; Tinnitus of right ear; Chronic sore throat; Current smoker; Vocal cord nodule; Localized enlarged lymph nodes; Cervicalgia Start: 11-28-2024 End: 11-28-2024 ambulatory PHILIPPE DAI Facility:[facility] Start: 10-21-2024 End: 10-21-2024 ambulatory PHILIPEP DAI Facility:[facility] Start: 03-30-2024 End: 03-30-2024 Patient encounter procedure Alexa Suarez MD Work Phone: [facility] Comment on above: Abnormal findings on diagnostic imaging of breast (Primary Dx) Start: 03-30-2024 End: 03-30-2024 ambulatory ALEXA SUAREZ Facility:[facility] Start: 03-23-2024 End: 03-23-2024 Telephone encounter Alexa Suarez MD Work Phone: [facility] Comment on above: Results Start: 03-18-2024 ambulatory ALEXA SUAREZ Facility: [facility] Start: 03-18-2024 End: 03-18-2024 Subsequent hospital visit by physician Stereo/Ultrasound Biopsy [facility] Comment on above: n/a. Start: 02-25-2024 End: 02-25-2024 Orders Only Alexa Suarez MD Work Phone: [facility] Comment on above: Abnormal finding on breast imaging (Primary Dx) Start: 02-23-2024 ambulatory PHILIPPE DAI Facil ity:[facility] Start: 02-23-2024 End: 02-23-2024 Subsequent hospital visit by physician Diagnostic Mammo [facility] 1 [facility] Comment on above: Arrived Start: 02-16-2024 ambulatory PHILIPPE DAI Facil ity:[facility] Start: 02-16-2024 End: 02-16-2024 Subsequent hospital visit by physician Mammo/Bone [facility] Comment on above: Unspecified lump in the right breast, unspecified quadrant [N63.10] Start: 12-29-2023 ambulatory PHILIPPE DAI Facil ity:[facility] Start: 12-29-2023 End: 12-29-2023 Subsequent hospital visit by physician Mammo/[facility] Comment on above: Encounter for screen ing mammogram for malignant neoplasm of breast [Z12.31] Start: 12-10-2023 ambulatory Philippe Dai TOLL GATE TENDER Faci lity:[facility] Start: 11-12-2023 End: 11-12-2023 ambulatory Philippe Dai TOLL GATE TENDER Facility:[facility] Start: 05-11-2023 End: 05-11-2023 [facility] Work Phone: Start: 05-11-2023 End: 05-11-2023 Patient encounter procedure [facility] Specimen Work Phone: Start: 05-11-2023 End: 05-11-2023 ambulatory Philippe Dai TOLL GATE TENDER Facility:[facility] Start: 12-26-2022 Documentation procedure Mammog jorge l Coordinator [facility] Start: 12-26-2022 Letter encounter Mammography Coordinator [facility] NOT LISTED Start: 12-25-2022 End: 12-25-2022 Subsequent hospital visit by physician Mammo/[facility]one [facility] Comment on above: Screening Start: 11-27-2022 End: 11-27-2022 [facility] Work Phone: Start: 11-27-2022 End: 11-27-2022 Patient encounter procedure [facility] Spec[facility] Work Phone: Start: 11-27-2022 Patient encounter status [facility] Start: 12-18-2021 Documentation procedure Mammog jorge l Coordinator [facility] Start: 12-18-2021 Letter encounter Mammography Coordinator [facility] Start: 12-17-2021 End: 12-17-2021 Subsequent hospital visit by physician Mammo/[facility] Comment on above: Screening Start: 12-03-2021 End: 12-03-2021 ambulatory [facility] Work Phone: Start: 12-03-2021 End: 12-03-2021 Patient encounter procedure [facility] Specimen Procedures Date Procedure Procedure Detail Performing Clinician Start: 03-18-2024 Digital breast tomosynthesis unilateral Alexa Suarez MD Work Phone: Start: 03-18-2024 Bx breast w/device 1 st lesion ultrasound guid Alexa Suarez MD Work Phone: Start: 02-23-2024 Us breast uni real t marie with image limited Philippe L Dai OFFICE SERVICES MANAGER.[employer] Work Phone: Start: 02-16-2024 Us breast uni real t marie with image limited Philippe L Dai OFFICE SERVICES MANAGER.[employer] Work Phone: Start: 02-16-2024 Digital breast tomosynthesis unilateral Philippe L Dai OFFICE SERVICES MANAGER.[employer] Work Phone: Start: 12-17-2021 Mammography Mammograph y Coordinator Start: 12-13-2020 Mammography Mammo/[facility] Hosp Start: 10-14-2010 Colonoscopy Mammo/Bone Hosp Plan of Treatment Date Care Activity Detail Author Start: 02-11-2036 RSV Vaccine (1 - 1-dose 75+ series) RSV Vaccine (1 - 1-dose 75+ series) [facility] Start: 02-08-2025 End: 02-08-2025 Patient encounter procedure 02/08/2025 1:30 PM EST Office Visit Otolaryngology [address] [place] [address] [address] [place] [address] Fred Griggs MD [address] [place], [place] [id number] vocal cord nodule Otolaryngology Comment on above: vocal cord nodule Start: 01-12-2025 End: 01-12-2025 Patient encounter procedure 01/12/2025 1:30 PM EDT Office Visit Audiology [address] [place] [address] [address], AUD [address] [place] [address] HEARING TEST/AUDIOGRAM Audiology Comment on above: HEARING TEST/AUDIOGR AM Start: 12-28-2024 Screening for malignant neoplasm of breast Mammogram Screening [facility] Start: 12-08-2024 End: 12-08-2024 Patient encounter procedure 12/08/2024 4:00 PM EDT Appointment [facility] [address] [place] [address] Localized enlarged lymph nodes [R59.0]; Cervicalgia [M54.2] [facility] Comment on above: Localized enlarged l ymph nodes [R59.0]; Cervicalgia [M54.2] Start: 11-14-2024 Influenza vaccination Influenza Vacc ine (#1) [facility] Start: 09-27-2024 End: 09-27-2024 Patient encounter procedure 09/27/2024 3:45 PM EDT Office Visit [facility] 1 [facility] [address] [place] [address] Alexa Suarez MD [address] [place] [address] right breast diagnostic mammogram and ultrasound with f/u. [facility] Comment on above: right breast diagnos tic mammogram and ultrasound with f/u. Start: 09-27-2024 End: 09-27-2024 Patient encounter procedure 09/27/2024 2:30 PM EDT Appointment [facility] [address] [place] [address] right breast diagnostic mammogram and ultrasound with f/u. [facility] Comment on above: right breast diagnos tic mammogram and ultrasound with f/u. Start: 03-25-2024 End: 03-25-2024 Patient encounter procedure 03/25/2024 3:00 PM EST Office Visit [facility] 1 [facility] [address] [place] [address] Alexa Suarez MD [address] [place], [place] [address] s/p right ultrasound guided biopsy. [facility] Comment on above: s/p right ultrasound guided biopsy. Start: 03-18-2024 End: 03-18-2024 Patient encounter procedure 03/18/2024 1:30 PM EST Appointment [facility] [place] [address] right ultrasound guided biopsy. [facility] Comment on above: right ultrasound david ded biopsy. Start: 02-23-2024 End: 02-23-2024 Patient encounter procedure 02/23/2024 2:30 PM EST Appointment [facility] [place] [address] NO CHARGE REPEAT EXAM [facility] Comment on above: NO CHARGE REPEAT EXA M Start: 12-26-2023 Mammography Mammogram Screening [facility] Start: 12-26-2023 Screening for malignant neoplasm of breast Mammogram Screening [facility] Start: 11-15-2023 Covid-19 Vaccine ( season) Covid-19 Vaccine ( season) [facility] Start: 11-15-2023 Influenza vaccination Influenza Vacc ine (#1) [facility] Start: 12-26-2022 Screening for malignant neoplasm of colon Cologuard (FIT-DNA) [facility] Start: 12-17-2022 Mammography [facility] Start: 11-14-2022 Covid-19 Vaccine ( season) Covid-19 Vaccine ( season) [facility] Start: 11-14-2022 Influenza vaccination Influenza Vacc ine (#1) [facility] Start: 03-16-2022 Depression Assessment Depression Ass essment [facility] Start: 12-13-2021 Mammography MAMMOGRAM [facility] Start: 11-14-2021 Influenza vaccination INFLUENZA (#1) [facility] Start: 03-16-2021 DEPRESSION ASSESSMENT DEPRESSION ASS ESSMENT [facility] Start: 2021 Hepatitis B Vaccine (1 of 3 - Risk 3-dose series) Hepatitis B Vaccine (1 of 3 - Risk 3-dose series) [facility] Start: 10-14-2020 Colonoscopy COLONOSCOPY [facility] Start: 10-14-2020 COLORECTAL CANCER SCREENING COLORECTAL CANCER SCREENING [facility] Start: 10-14-2020 Screening for malignant neoplasm of colon [facility] Start: 10-08-2020 COVID-19 VACCINE (3 - Booster for Moderna series) COVID-19 VACCINE (3 - Booster for Moderna series) [facility] Start: 09-19-2020 PAP TESTING PAP TESTING [facility] Start: 09-19-2018 Screening for malignant neoplasm of cervix Cervical Cancer Screening [facility] Start: 03-16-2018 Urine microalbumin profile [facility] Start: 05-06-2017 Hepatitis B surface antibody level LDL CHOLESTEROL [facility] Start: 11-03-2016 Hemoglobin A1c measurement HbA1C [facility] Start: 11-03-2016 Hemoglobin A1c/Hemoglobin.total in Blood HBA1C [facility] Start: 09-22-2016 FECAL OCCULT BLOOD FECAL OCCULT BLOO D [facility] Start: 09-22-2016 Screening for malignant neoplasm of colon Fecal Occult Blood [facility] Start: 03-28-2016 Glaucoma screening Dilated Retinal E xam [facility] Start: 03-28-2016 Hepatitis C antibody , confirmatory test DILATED RETINAL EXAM [facility] Start: 11-28-2015 Pneumococcal vaccination Pneumococcal Vaccine (2 of 2 - PCV) [facility] Start: 11-28-2015 Pneumococcal Vaccine : 50+ (2 of 2 - PCV) Pneumococcal Vaccine: 50+ (2 of 2 - PCV) [facility] Start: 05-28-2013 Hepatitis B screening URINE ALBUMIN:CREATININE RATIO [facility] Start: 2011 Influenza vaccination LUNG CANCER SC REENING [facility] Start: 2011 Screening for malignant neoplasm of lung Lung Cancer Screening [facility] Start: 2011 SHINGRIX VACCINE (1 of 2) SHINGRIX VACCINE (1 of 2) [facility] Start: 03-16-2010 PNEUMOCOCCAL (2 - PCV) PNEUMOCOCCAL (2 - PCV) [facility] Start: 03-16-2010 Pneumococcal vaccination Pneumococcal Vaccine (2 - PCV) [facility] Start: 2006 COLOGUARD (FIT-DNA) COLOGUARD (FIT-D NA) [facility] Start: [address] COLONOGRAPHY [facility] Start: 2006 Screening for malignant neoplasm of colon [facility] Start: 2006 SIGMOIDOSCOPY SIGMOIDOSCOPY [facility] Start: 1991 HPV TESTING HPV TESTING [facility] Start: 1979 ANNUAL PCP TEAM CHRONIC DISEASE VISIT ANNUAL PCP TEAM CHRONIC DISEASE VISIT [facility] Start: 1979 Anxiety Screening Anxiety Screening [facility] Start: 1979 BP CONTROLLED (<130/80) BP CONTROLLED (<130/80) [facility] Start: 1979 Depression Screening Depression Scre ening [facility] Start: 1979 HEPATITIS C SCREENING HEPATITIS C [facility] Start: 1979 Hepatitis C screening Hepatitis C [facility] Start: 1979 HIV SCREENING HIV SCREENING [facility] Start: 1979 HIV screening HIV Screening [facility] Start: 1971 3 comp foot exam completed DIABETIC FOOT EXAM [facility] Start: 1971 Diabetic foot examination Diabetic Foot Exam [facility] Start: 1971 Hepatitis B screening Urine Albumin:Creatinine Ratio [facility] End: 12-28-2025 CT Neck W contrast IV CT NECK SOFT TISSUE W IVCON Radiology Routine Localized enlarged lymph nodes Cervicalgia 1 Occurrences starting 11/28/2024 until 12/28/2025 [facility] Work Phone: Comment on above: 1 Occurrences starti ng 11/28/2024 until 12/28/2025 End: 04-29-2025 MG Breast - right Diagnostic for implant AMPARO DIAGNOSTIC RIGHT Radiology Routine Abnormal findings on diagnostic imaging of breast 1 Occurrences starting 03/30/2024 until 04/29/2025 [facility] Work Phone: Comment on above: 1 Occurrences starti ng 03/30/2024 until 04/29/2025 End: 03-18-2024 SURGICAL PATHOLOGY SURGICAL PATHOLOGY Lab Routine ONCE for 1 Occurrences starting 03/18/2024 until 03/18/2024 [facility] Work Phone: Comment on above: ONCE for 1 Occurrenc es starting 03/18/2024 until 03/18/2024 End: 04-29-2025 US Breast - right limited US BREAST LTD RIGHT Radiology Routine Abnormal findings on diagnostic imaging of breast 1 Occurrences starting 03/30/2024 until 04/29/2025 [facility] Comment on above: 1 Occurrences starti ng 03/30/2024 until 04/29/2025 End: 03-26-2025 US Guidance for biopsy of Breast - right US BIOPSY BREAST RIGHT Radiology Routine Abnormal finding on breast imaging 1 Occurrences starting 02/25/2024 until 03/26/2025 [facility] Work Phone: Comment on above: 1 Occurrences starti ng 02/25/2024 until 03/26/2025 Immunizations Immunization Date Immunization Notes Care Provider Juliana coleman 11-27-2014 influenza virus vacc ine, unspecified formulation [facility] 2012 influenza virus vacc ine, unspecified formulation [facility] 03-16-2009 pneumococcal polysac charide vaccine, 23 valent [facility] 03-16-2008 tetanus toxoid, redu yani diphtheria toxoid, and acellular pertussis vaccine, adsorbed Mammo/Bone [facility] Payers Date Payer Category Payer Self-pay [id number] 2018 [employer] BLUE ACCE SS PPO [id number] 2018 Unknown [employer] BLUE ACCE SS PPO [id number] 2018-Present [phone] [address] [place] [address] PPO [id number] 2018 Unknown [id number] Unknown ANTHEM OUT OF STATE [id number] Unknown [id number] Unknown [id number] Unknown [id number] Social History Date Type Detail Facility Start: 03-14-2020 End: 03-14-2020 Tobacco smoking status [facility] Unknown if ever smoked [facility] Start: 1960 Sex Assigned At Female W [facility] Start: 03-16-1974 End: 03-30-2024 Tobacco smoking status RIIS Smokes tobacco daily [facility] Start: 03-16-1974 History of tobacco use Cigarette Smo ker [facility] Start: 12-04-2015 End: 12-25-2022 Cigarettes smoked current (pack per day) - Reported 1.5 [facility] Start: 12-04-2015 End: 03-30-2024 Tobacco use and exposure Smokeless tobacco non-user [facility] Start: 10-29-2021 End: 03-30-2024 Alcohol intake Current drinker of alcohol (finding) [facility] Start: 06-29-2007 History SDOH Alcohol Comment WEEKLY [facility] Start: 03-19-2015 End: 03-30-2024 Tobacco Comment smokes 1 1/2 ppd since age 15 years [facility] Start: 1960 Sex Assigned At Not on file [facility] Start: 12-07-2021 End: 12-17-2021 Exposure to SARS-CoV-2 (event) Not sure [facility] Start: 10-29-2021 End: 12-25-2022 Tobacco use panel [facility] Start: 02-15-2012 National Score (1-10 0), lower number is lower risk 51 [facility] Clinical Notes 12-17-2021 to 11-28-2024 Patient InstructionsGeorge Pressley PA-C - 11/28/2024 9:26 AM Bernie Ribeiro MA - 03/30/2024 2:51 PM Alexa Rodriges MD - 03/30/2024 9:09 AM Zoraida Raza RT(R) - 03/18/2024 1:30 PM EST Note Date & Type Note Facility 11-28-2024 Instructions George Pressley PA-C - 11/28/2024 10:11 AM EDT Laryngology Physicians: Dr. George Duran documented in this encounter [facility] 11-28-2024 Note HNO ID: [id number] Author: GEORGE PRESSLEY PA-C Service: ? Author Type: Physician Correctional Therapy Director Type: Progress Notes Filed: 11/28/2024 11:16 Note Text: [facility] [place] [facility] NOTE CC: Mrs. Salazar is a 64 year old female who comes in for follow up. Patient was last seen on 10/21/2024 with plan of care: ASSESSMENT: Tinnitus of right ear Tongue burning sensation Gastroesophageal reflux disease, unspecified whether esophagitis present Sore throat PLAN: - Ordered hearing test for further evaluation of hearing, underlying etiology of tinnitus - Educated patient on tinnitus and conservative management options; patient education handout provided - Continue famotidine, add omeprazole; counseled patient on medication, dose, route, side effects, and adverse reactions - Prescribed BMX 1:1:1 mouthwash; counseled patient on medication, dose, route, side effects, and adverse reactions - Educated patient on GERD, including diet and lifestyle modifications, alginate therapy; patient education handout provided - Advised patient on red flag warning signs, symptoms that warrant immediate evaluation in ER - Follow up after hearing test; sooner if clinically indicated George Pressley PA-C [facility] ASSESSMENT: Gastroesophageal reflux disease, unspecified whether esophagitis present Tongue burning sensation Tinnitus of right ear Chronic sore throat Current smoker Vocal cord nodule Localized enlarged lymph nodes Cervicalgia PLAN: - Hearing test schedule 01/12/2025; educated patient on tinnitus and conservative management options; patient education handout provided - Advised patient on smoking cessation including pharmacotherapy for 5 minutes; patient acknowledges understanding - Continue famotidine, omeprazole; counseled patient on medication, dose, route, side effects, and adverse reactions. Recommended patient schedule with GI for further evaluation, management of GERD - Educated patient on GERD, including diet and lifestyle modifications, alginate therapy; patient education handout provided - Ordered CT Neck for further evaluation of chronic neck pain, lymphadenopathy - Consult to Laryngology for further evaluation, video stroboscopy, management of vocal cord nodules - Advised patient on red flag warning signs, symptoms that warrant immediate evaluation in ER - Follow up with Laryngology for voice and with [facility] s/p hearing test; sooner if clinically indicated George Pressley PA-C [facility] HPI: Since last visit, patient reports improvement of GERD with omeprazole, but sore throat, burning tongue, and tinnitus persist (now in left ear as well). Patient describes right-sided globus sensation just irritated that is exacerbated when swallowing and migrates to the left on occasion. Patient reports she cut her smoking in half and motivated to discontinue. HPI 10/21/2024: 64 year old female presents to clinic for evaluation of Sore throat, buring tounge, right ear isses. Patient reports since July 2024, she has experienced sore throat, burning tongue sensation, and tinnitus of right ear. Patient initially had ears cleaned with Nurse Practitioner friend without perceived benefit. On follow up, placed on penicillin per patient without benefit. Other patient-reported interventions include aspirin, ibuprofen. Patient endorses history of GERD, famotidine daily. Patient current smoker, denies personal or family history of head or neck cancer. Patient denies history of seasonal or environmental allergies. Patient denies dysphagia, odynophagia, throat swelling, airway compromise. Past medical history: PAST MEDICAL HISTORY Diagnosis Date Abnormal mammography Acute gastritis without mention of hemorrhage Angina pectoris (HCC) Corns and callus Coronary atherosclerosis of autologous vein bypass graft Cough Depressive disorder Diarrhea Disorder of teeth and supporting structures pain, having root canal tomorrow 10/09/2011 Dyslipidemia Dyspareunia (CODE) Esophageal reflux Esophagitis, unspecified Fibrocystic disease of breast MARIELLA (generalized anxiety disorder) Hypocalcemia IFG (impaired fasting glucose) Impacted cerumen Orthostatic proteinuria Other and unspecified hyperlipidemia Palpitations Tobacco dependence syndrome Unspecified essential hypertension Past surgical history: PAST SURGICAL HISTORY Procedure Laterality Date ARTHROSCOPY KNEE DIAGNOSTIC W/WO SYNOVIAL BX SPX Right 09/13/2006 Arthroscopy, knee - repair right meniscal tear BX OF BREAST; INCISIONAL Right 03/18/2024 COLONOSCOPY FLX DX W/COLLJ SPEC WHEN PFRMD 10/14/2010 Colonoscopy - Dr. Raymond, + polyps EGD TRANSORAL BIOPSY SINGLE/MULTIPLE 08/11/2007 ESOPHAGOGASTRODUODENOSCOPY TRANSORAL DIAGNOSTIC 10/18/2010 EGD - Dr. Raymond, gastritis MOTOR NERVE CONDUCTION TEST TRABECULOPLASTY BY LASER SURGERY Bilateral 0 (more content not included)... [facility] 11-28-2024 History of Presen t illness Narrative Images from the original note were not included. [facility] [place] [facility] NOTE CC: Mrs. Salazar is a 64 year old female who comes in for follow up. Patient was last seen on 10/21/2024 with plan of care: ASSESSMENT: Tinnitus of right ear Tongue burning sensation Gastroesophageal reflux disease, unspecified whether esophagitis present Sore throat PLAN: - Ordered hearing test for further evaluation of hearing, underlying etiology of tinnitus - Educated patient on tinnitus and conservative management options; patient education handout provided - Continue famotidine, add omeprazole; counseled patient on medication, dose, route, side effects, and adverse reactions - Prescribed BMX 1:1:1 mouthwash; counseled patient on medication, dose, route, side effects, and adverse reactions - Educated patient on GERD, including diet and lifestyle modifications, alginate therapy; patient education handout provided - Advised patient on red flag warning signs, symptoms that warrant immediate evaluation in ER - Follow up after hearing test; sooner if clinically indicated George Pressley PA-C [facility] ASSESSMENT: Gastroesophageal reflux disease, unspecified whether esophagitis present Tongue burning sensation Tinnitus of right ear Chronic sore throat Current smoker Vocal cord nodule Localized enlarged lymph nodes Cervicalgia PLAN: - Hearing test schedule 01/12/2025; educated patient on tinnitus and conservative management options; patient education handout provided - Advised patient on smoking cessation including pharmacotherapy for 5 minutes; patient acknowledges understanding - Continue famotidine, omeprazole; counseled patient on medication, dose, route, side effects, and adverse reactions. Recommended patient schedule with GI for further evaluation, management of GERD - Educated patient on GERD, including diet and lifestyle modifications, alginate therapy; patient education handout provided - Ordered CT Neck for further evaluation of chronic neck pain, lymphadenopathy - Consult to Laryngology for further evaluation, video stroboscopy, management of vocal cord nodules - Advised patient on red flag warning signs, symptoms that warrant immediate evaluation in ER - Follow up with Laryngology for voice and with [facility] s/p hearing test; sooner if clinically indicated George Pressley PA-C [facility] HPI: Since last visit, patient reports improvement of GERD with omeprazole, but sore throat, burning tongue, and tinnitus persist (now in left ear as well). Patient describes right-sided globus sensation just irritated that is exacerbated when swallowing and migrates to the left on occasion. Patient reports she cut her smoking in half and motivated to discontinue. HPI 10/21/2024: 64 year old female presents to clinic for evaluation of Sore throat, buring tounge, right ear isses. Patient reports since July 2024, she has experienced sore throat, burning tongue sensation, and tinnitus of right ear. Patient initially had ears cleaned with Nurse Practitioner friend without perceived benefit. On follow up, placed on penicillin per patient without benefit. Other patient-reported interventions include aspirin, ibuprofen. Patient endorses history of GERD, famotidine daily. Patient current smoker, denies personal or family history of head or neck cancer. Patient denies history of seasonal or environmental allergies. Patient denies dysphagia, odynophagia, throat swelling, airway compromise. Past medical history: PAST MEDICAL HISTORY Diagnosis Date Abnormal mammography Acute gastritis without mention of hemorrhage Angina pectoris (HCC) Corns and callus Coronary atherosclerosis of autologous vein bypass graft Cough Depressive disorder Diarrhea Disorder of teeth and supporting structures pain, having root canal tomorrow 10/09/2011 Dyslipidemia Dyspareunia (CODE) Esophageal reflux Esophagitis, unspecified Fibrocystic disease of breast MARIELLA (generalized anxiety disorder) Hypocalcemia IFG (impaired fasting glucose) Impacted cerumen Orthostatic proteinuria Other and unspecified hyperlipidemia Palpitations Tobacco dependence syndrome Unspecified essential hypertension Past surgical history: PAST SURGICAL HISTORY Procedure Laterality Date ARTHROSCOPY KNEE DIAGNOSTIC W/WO SYNOVIAL BX SPX Right 09/13/2006 Arthroscopy, knee - repair right meniscal tear BX OF BREAST; INCISIONAL Right 03/18/2024 COLONOSCOPY FLX DX W/COLLJ SPEC WHEN PFRMD 10/14/2010 Colonoscopy - Dr. Raymond, + polyps EGD TRANSORAL BIOPSY SINGLE/MULTIPLE 08/11/2007 ESOPHAGOGASTRODUODENOSCOPY TRANSORAL DIAGNOSTIC 10/18/2010 EGD - Dr. Raymond, gastritis MOTOR NERVE CONDUCTION TEST TRABECULOPLASTY BY LASER SURGERY Bilateral 03/16/1999 eyes to correct vision Current medication(s): Current Outpatient Medications Medication Sig omeprazole (PRILOSEC) 40 mg capsule Take 1 capsule by mouth daily at bedtime. [id number]-gfbpma-hdkdvakk e (BMX 1:1:1) 1:1:1 liqd Swish, gargle, and spit one to two teaspoonfuls every six hours as needed. Shake well before using. famotidine (PEPCID) 40 mg tablet once daily. losartan (COZAAR) 100 mg tablet once daily. cyanocobalamin (VITAMIN B-12) 1,000 mcg tab Take 1,000 mcg by mouth once daily. ibuprofen (MOTRIN) 600 mg tablet Take 1 tablet by mouth every 6 hours as needed for Pain. isosorbide mononitrate ER (IMDUR) 30 mg 24 hr tablet Take 1 tablet by mouth once daily. Fenofibrate (LOFIBRA) 160 mg tablet Take 1 tablet by mouth once daily. atorvastatin (LIPITOR) 80 mg tablet Take 1 tablet by mouth once daily. metoprolol succinate ER (TOPROL XL) 100 mg Tb24 Take 1 tablet by mouth once daily. niacin ER (NIASPAN) 500 mg tablet latanoprost (XALATAN) 0.005 % ophthalmic solution Use 1 Drop in both eyes daily at bedtime. Cholecalciferol, Vitamin D3, (VITAMIN D) 1,000 unit cap Take 1,000 Units by mouth twice daily. Magnesium 250 mg tab Take 500 mg by mouth once daily. CALCIUM CARBONATE (TUMS 500 ORAL) Take 750 mg by mouth three times daily. aspirin(ECOTRIN 325 MG TAB) Take one(1) tablet daily. omega-3 fatty acids(FISH OIL 500 MG CAP) Take 4 capsule daily. MULTIVITAMIN TAB Take one(1) tablet daily. iv contrast (will be provided with radiology test) Inject 1 each intravenously one time only for [address] Neck W IVCON No IV access, insert saline lock prior to the sedation, infusion, injection for imaging exam. Discontinue saline lock post exam. If Pt. has a central line or IVAD, may access for administration according to line specific nursing protocol. Once exam is complete flush line and de-access according to line specific nursing protocol in the CT contrast administration guidelines link. fluticasone (FLONASE) 50 mcg/actuation nasal spray Use 1 spray in each nostril two times a day. cyclobenzaprine (FLEXERIL) 10 mg tablet Take 1 tablet by mouth twice daily as needed. (Patient not taking: Reported on 03/30/2024) lisinopril (ZESTRIL, PRINIVIL) 20 mg tablet Take 1 tablet by mouth once daily. No current facility-administered medications for this visit. Allergies: ALLERGIES Allergen Reactions Bactrim [Sulfametho* GI Upset, Other: See Comments Burning of skin, redness Codeine GI Upset, Vomiting Social history: SOCIAL HISTORY[1] Family history: FAMILY HISTORY Problem Relation Age of Onset other (HTN [Other]) Mother Hyperlipidemia Mother other (DM2 [Other]) Mother other (BLADDER CN [Other]) Father other (HTN [Other]) Father Hyperlipidemia Father other (DM2 [Other]) Father other (Osteoperosis [Other]) Other paternal aunt Breast Cancer No Family History Ovarian cancer No Family History There are no exam notes on file for this visit. ROS: CONSTITUTIONAL: No fevers, chills, nightsweats, unintended weight loss HEAD: - headaches, - head injury EYES: - glasses/contact lens, - changes in vision, - diplopia, - blurry vision, - floaters EARS: - hearing loss, - change in hearing, + tinnitus, - otalgia, - ear pressure, - aural fullness, - otorrhea, - itching, - autophony, - ear infections, - PE tubes NOSE & SINUSES: - nasal congestion, - rhinorrhea, - PND, - epistaxis, - sense of smell, - history of nasal polyps, - sinus trouble, - sinus pressure, - sinus pain MOUTH & THROAT: + soreness, - dryness, - ulcers, + sore throat, + hoarseness, - change in voice, - teeth (caries, dentures, extractions, abscesses), + globus sensation NECK: - neck lumps, - goiter, + neck pain, + swollen lymph nodes or glands PULM: No dyspnea, unexplained cough CV: No chest pain, shortness of breath, leg swelling, or palpitations GI: No dysphagia/odynophagia, + problematic reflux. No nausea, vomiting, or diarrhea NEURO: No new balance problems, dizziness, or syncope. No peripheral weakness/paresthesias or numbness PSYCH: + depression, + anxiety PHYSICAL EXAM: GENERAL: 64 year old female is well developed, well nourished, without obvious deformities, in no acute distress COMMUNICATION: The patient speaks with a normal, clear voice without hoarseness. No stridor or stertor. Hearing is grossly normal OVERALL FACIAL APPEARANCE: No obvious scars, lesions, or masses EYES: Extraocular muscles are intact, no diplopia on primary gaze EARS: Externally normal in appearance, without scars, lesions, masses, or tenderness. Right EAC: patent; no swelling, redness, or obstruction R TM: visualized and intact; dull corona; no fluid behind TM R Pneumotoscopy: TM is mobile Left EAC: patent; no swelling, redness, or obstruction L TM: visualized and intact; dull corona; no fluid behind TM L Pneumotoscopy: TM is mobile NOSE: Externally normal in appearance, without scars, lesions, or masses. There is no tenderness with percussion over the paranasal sinuses. Nasal passageways are patent. The mucosa is pink and moist without lesions, visible turbinates grossly normal on anterior rhinoscopy. Septum is midline. ORAL CAVITY AND OROPHARYNX: Teeth are in poor repair and nontender. The lips, gums, oral mucosa, hard and soft palates, tongue, tonsil area, and posterior pharyngeal mucosa are without lesions. Uvula midline. No pharyngeal swelling, oropharyngeal exudate, + posterior oropharyngeal erythema and thick mucous adherent, no uvula swelling. Floor of mouth is soft without edema. Gag reflex intact. On bimanual exam, there are no stones, masses, or areas of induration NECK: The neck appears symmetric without scars and on palpation is without masses or lymphadenopathy. Trachea is midline and mobile. Full range of motion without symptoms. NEURO: Patient is Alert and Oriented to person, place, time, and situation. Cranial nerves II-XII grossly intact RESPIRATORY: Breathing comfortably, no evidence accessory muscle use, no intercostal retractions CV: Strong carotid artery pulse with no bruit RADS: None LABS: Relevant labs were reviewed and discussed with patient. OUTSIDE RECORDS: None PROCEDURE: Diagnostic Flexible Laryngoscopy Indication: Chronic sore throat, GERD, current smoker, hyperactive gag reflex Consent: Verbal consent obtained. Risks, benefits, alternatives, and expectations were explained; patient consents to procedure. Clinician: George Pressley PA-C Anesthesia: The patient was sprayed with 2% topical lidocaine Findings: A flexible fiberoptic laryngoscope was passed through the patient's nares. The nasal cavities, nasopharynx, oropharynx, hypopharynx and larynx were examined. Septum: Midline, no perforations Nasal cavity: grossly unremarkable, no lesions/masses/polyps/discharge , turbinates hypertrophied in size Naso-/Eliza-/Hypopharynx: nasopharynx and oropharynx were normal without any lesions or masses visualized. No masses or lesions were visualized at vallecula, epiglottis, aryepiglottic folds, pyriform sinuses, and lateral pharyngeal cameron; question some discoloration at right lateral base of tongue. The larynx itself showed erythema of the arytenoids and interarytenoid mucosa. True vocal fold with bilateral lesions on anterior 2/3 of vocal folds, hourglass closure on phonation. The patient's airway was widely patent with no evidence of obstruction Patient tolerated the procedure well and there were no complications. Findings were explained to the patient. George Pressley PA-C [facility] Medical Decision Making: Problems: Moderate: 1+ chronic illnesses with change Data: Unique test(s) ordered: 1 Risk: Low: Low risk from testing/treatment Moderate: Drug management Medical Decision Making Level: 4 - Moderate [1] Social History Tobacco Use Smoking status: Every Day Current packs/day: 1.50 Average packs/day: 1.5 packs/day for 50.7 years (76.1 ttl pk-yrs) Types: Cigarettes Start date: 03/16/1974 Smokeless tobacco: Never Tobacco comments: smokes 1 1/2 ppd since age 15 years Substance Use Topics Alcohol use: Yes Comment: WEEKLY Drug use: No documented in this encounter [facility] 10-21-2024 Note HNO ID: [id number] Author: GEORGE PRESSLEY PA-C Service: ? Author Type: Physician Correctional Therapy Director Type: Progress Notes Filed: 10/21/2024 11:29 Note Text: [facility] [place] [facility] NOTE CC: Alexa Salazar is a 64 year old female who is self referred for Sore throat, buring tounge, right ear isses. ASSESSMENT: Tinnitus of right ear Tongue burning sensation Gastroesophageal reflux disease, unspecified whether esophagitis present Sore throat PLAN: - Ordered hearing test for further evaluation of hearing, underlying etiology of tinnitus - Educated patient on tinnitus and conservative management options; patient education handout provided - Continue famotidine, add omeprazole; counseled patient on medication, dose, route, side effects, and adverse reactions - Prescribed BMX 1:1:1 mouthwash; counseled patient on medication, dose, route, side effects, and adverse reactions - Educated patient on GERD, including diet and lifestyle modifications, alginate therapy; patient education handout provided - Advised patient on red flag warning signs, symptoms that warrant immediate evaluation in ER - Follow up after hearing test; sooner if clinically indicated George Pressley PA-C [facility] HPI: 64 year old female presents to clinic for evaluation of Sore throat, buring tounge, right ear isses. Patient reports since July 2024, she has experienced sore throat, burning tongue sensation, and tinnitus of right ear. Patient initially had ears cleaned with Nurse Practitioner friend without perceived benefit. On follow up, placed on penicillin per patient without benefit. Other patient-reported interventions include aspirin, ibuprofen. Patient endorses history of GERD, famotidine daily. Patient current smoker, denies personal or family history of head or neck cancer. Patient denies history of seasonal or environmental allergies. Patient denies dysphagia, odynophagia, throat swelling, airway compromise. Past medical history: PAST MEDICAL HISTORY Diagnosis Date Abnormal mammography Acute gastritis without mention of hemorrhage Angina pectoris (HCC) Corns and callus Coronary atherosclerosis of autologous vein bypass graft Cough Depressive disorder Diarrhea Disorder of teeth and supporting structures pain, having root canal tomorrow 10/09/2011 Dyslipidemia Dyspareunia (CODE) Esophageal reflux Esophagitis, unspecified Fibrocystic disease of breast MARIELLA (generalized anxiety disorder) Hypocalcemia IFG (impaired fasting glucose) Impacted cerumen Orthostatic proteinuria Other and unspecified hyperlipidemia Palpitations Tobacco dependence syndrome Unspecified essential hypertension Past surgical history: PAST SURGICAL HISTORY Procedure Laterality Date ARTHROSCOPY KNEE DIAGNOSTIC W/WO SYNOVIAL BX SPX Right 09/13/2006 Arthroscopy, knee - repair right meniscal tear BX OF BREAST; INCISIONAL Right 03/18/2024 COLONOSCOPY FLX DX W/COLLJ SPEC WHEN PFRMD 10/14/2010 Colonoscopy - Dr. Raymond, + polyps EGD TRANSORAL BIOPSY SINGLE/MULTIPLE 08/11/2007 ESOPHAGOGASTRODUODENOSCOPY TRANSORAL DIAGNOSTIC 10/18/2010 EGD - Dr. Raymond, gastritis MOTOR NERVE CONDUCTION TEST TRABECULOPLASTY BY LASER SURGERY Bilateral 03/16/1999 eyes to correct vision Current medication(s): Current Outpatient Medications Medication Sig famotidine (PEPCID) 40 mg tablet once daily. losartan (COZAAR) 100 mg tablet once daily. cyanocobalamin (VITAMIN B-12) 1,000 mcg tab Take 1,000 mcg by mouth once daily. ibuprofen (MOTRIN) 600 mg tablet Take 1 tablet by mouth every 6 hours as needed for Pain. isosorbide mononitrate ER (IMDUR) 30 mg 24 hr tablet Take 1 tablet by mouth once daily. Fenofibrate (LOFIBRA) 160 mg tablet Take 1 tablet by mouth once daily. atorvastatin (LIPITOR) 80 mg tablet Take 1 tablet by mouth once daily. metoprolol succinate ER (TOPROL XL) 100 mg Tb24 Take 1 tablet by mouth once daily. niacin ER (NIASPAN) 500 mg tablet latanoprost (XALATAN) 0.005 % ophthalmic solution Use 1 Drop in both eyes daily at bedtime. Cholecalciferol, Vitamin D3, (VITAMIN D) 1,000 unit cap Take 1,000 Units by mouth twice daily. Magnesium 250 mg tab Take 500 mg by mouth once daily. CALCIUM CARBONATE (TUMS 500 ORAL) Take 750 mg by mouth three times daily. aspirin(ECOTRIN 325 MG TAB) Take one(1) tablet daily. omega-3 fatty acids(FISH OIL 500 MG CAP) Take 4 capsule daily. MULTIVITAMIN TAB Take one(1) tablet daily. omeprazole (PRILOSEC) 40 mg capsule Take 1 capsule by mouth daily at bedtime. zavwdkployCICGY-wiqizy-vebosuxn e (BMX 1:1:1) 1:1:1 liqd Swish, gargle, and spit one to two teaspoonfuls every six hours as needed. Shake well before using. cyclobenzaprine (FLEXERIL) 10 mg tablet Take 1 tablet by mouth twice daily as needed. (Patient not taking: Reported on 03/30/2024) lisinopril (ZESTRIL, PRINIVIL) 20 mg tablet Take 1 tablet by mouth once daily. No current (more content not included)... [facility] 03-30-2024 Note HNO ID: [id number] Author: BERNIE GIBBS MA Service: ? Author Type: Pivot Maker Type: Progress Notes Filed: 03/30/2024 15:18 Note Text: Alexa Salazar is a 64 year old female who presents for New Patient (Present for results of right breast biopsy, does report a pain, and lump. ) Bernie Gibbs MA [facility] 03-30-2024 History of Presen t illness Narrative Alexa Salazar is a 64 year old female who presents for New Patient (Present for results of right breast biopsy, does report a pain, and lump. ) Bernie Gibbs MA Images from the original note were not included. Alexa Suarez MD [facility] [address] [place] [address] HPI: Alexa Salazar is a 64 year old White female who presents after right breast image guided biopsy. The patient reports the lesion was found on screening mammogram in December 2023. She reports she had no new findings on her self breast exam prior to the biopsy. There is no family history of breast cancer. Postbiopsy, the patient had a large hematoma. This was managed conservatively. There are no exam notes on file for this visit. No question data found. Obstetric History No data available PAST MEDICAL HISTORY Diagnosis Date Abnormal mammography Acute gastritis without mention of hemorrhage Angina pectoris (HCC) Corns and callus Coronary atherosclerosis of autologous vein bypass graft Cough Depressive disorder Diarrhea Disorder of teeth and supporting structures pain, having root canal tomorrow 10/09/2011 Dyslipidemia Dyspareunia (CODE) Esophageal reflux Esophagitis, unspecified Fibrocystic disease of breast MARIELLA (generalized anxiety disorder) Hypocalcemia IFG (impaired fasting glucose) Impacted cerumen Orthostatic proteinuria Other and unspecified hyperlipidemia Palpitations Tobacco dependence syndrome Unspecified essential hypertension PAST SURGICAL HISTORY Procedure Laterality Date ARTHROSCOPY KNEE DIAGNOSTIC W/WO SYNOVIAL BX SPX Right 09/13/2006 Arthroscopy, knee - repair right meniscal tear BX OF BREAST; INCISIONAL Right 03/18/2024 COLONOSCOPY FLX DX W/COLLJ SPEC WHEN PFRMD 10/14/2010 Colonoscopy - Dr. Raymond, + polyps EGD TRANSORAL BIOPSY SINGLE/MULTIPLE 08/11/2007 ESOPHAGOGASTRODUODENOSCOPY TRANSORAL DIAGNOSTIC 10/18/2010 EGD - Dr. Raymond, gastritis MOTOR NERVE CONDUCTION TEST TRABECULOPLASTY BY LASER SURGERY Bilateral 03/16/1999 eyes to correct vision FAMILY HISTORY Problem Relation Age of Onset other (HTN [Other]) Mother Hyperlipidemia Mother other (DM2 [Other]) Mother other (BLADDER CN [Other]) Father other (HTN [Other]) Father Hyperlipidemia Father other (DM2 [Other]) Father other (Osteoperosis [Other]) Other paternal aunt Breast Cancer No Family History Ovarian cancer No Family History CURRENT MEDICATIONS: famotidine (PEPCID) 40 mg tablet once daily. losartan (COZAAR) 100 mg tablet once daily. cyanocobalamin (VITAMIN B-12) 1,000 mcg tab Take 1,000 mcg by mouth once daily. ibuprofen (MOTRIN) 600 mg tablet Take 1 tablet by mouth every 6 hours as needed for Pain. isosorbide mononitrate ER (IMDUR) 30 mg 24 hr tablet Take 1 tablet by mouth once daily. Fenofibrate (LOFIBRA) 160 mg tablet Take 1 tablet by mouth once daily. atorvastatin (LIPITOR) 80 mg tablet Take 1 tablet by mouth once daily. metoprolol succinate ER (TOPROL XL) 100 mg Tb24 Take 1 tablet by mouth once daily. lisinopril (ZESTRIL, PRINIVIL) 20 mg tablet Take 1 tablet by mouth once daily. niacin ER (NIASPAN) 500 mg tablet latanoprost (XALATAN) 0.005 % ophthalmic solution Use 1 Drop in both eyes daily at bedtime. Cholecalciferol, Vitamin D3, (VITAMIN D) 1,000 unit cap Take 1,000 Units by mouth twice daily. Magnesium 250 mg tab Take 500 mg by mouth once daily. CALCIUM CARBONATE (TUMS 500 ORAL) Take 750 mg by mouth three times daily. aspirin(ECOTRIN 325 MG TAB) Take one(1) tablet daily. omega-3 fatty acids(FISH OIL 500 MG CAP) Take 4 capsule daily. MULTIVITAMIN TAB Take one(1) tablet daily. cyclobenzaprine (FLEXERIL) 10 mg tablet Take 1 tablet by mouth twice daily as needed. (Patient not taking: Reported on 03/30/2024) CURRENT ALLERGIES: ALLERGIES Allergen Reactions Bactrim [Sulfametho* GI Upset, Other: See Comments Burning of skin, redness Codeine GI Upset, Vomiting Social History Tobacco Use Smoking status: Every Day Current packs/day: 1.50 Average packs/day: 1.5 packs/day for 50.0 years (75.1 ttl pk-yrs) Types: Cigarettes Start date: 03/16/1974 Smokeless tobacco: Never Tobacco comments: smokes 1 1/2 ppd since age 15 years Substance Use Topics Alcohol use: Yes Comment: WEEKLY Drug use: No LABS AND IMAGING: FINAL DIAGNOSIS Breast, right,right breast 12:00, 3 cm from nipple (ribbon clip), core biopsy: - Benign breast tissue with foamy histiocytes, hemorrhage and giant cells compatible with fat necrosis. Review of Systems Constitutional: Negative for chills, fever, malaise/fatigue and weight loss. HENT: Negative for hearing loss. Eyes: Negative for blurred vision. Respiratory: Negative for cough, shortness of breath and wheezing. Cardiovascular: Negative for chest pain, palpitations and leg swelling. Gastrointestinal: Negative for abdominal pain, nausea and vomiting. Musculoskeletal: Positive for back pain. Negative for joint pain, myalgias and neck pain. Neurological: Negative for dizziness, tingling, tremors and headaches. PHYSICAL EXAM: BP 171/90 Pulse 96 Ht 170.2 cm (5' 7) Wt 80.3 kg (177 lb) BMI 27.72 kg/m General appearance: Well appearing, alert, in no acute distress Skin: skin color, texture, turgor normal, no suspicious rashes or lesions Eyes: Anicteric sclera, Pupils are equally round and reactive Abdomen: soft, non-tender, non-distended Extremities: No clubbing, cyanosis, or edema. Heart: Regular rate and rhythm Lungs: positive for wheezing Neuro: Alert and oriented times three Physical Exam Chest: Breasts: Breasts are asymmetrical. Right: Swelling, mass (4 cm hematoma located 12:00 6 cm from the nipple) and skin change (Ecchymosis over the biopsy site) present. No inverted nipple, nipple discharge or tenderness. Left: No swelling, inverted nipple, mass, nipple discharge, skin change or tenderness. Lymphadenopathy: Upper Body: Right upper body: No axillary adenopathy. Left upper body: No axillary adenopathy. The sensitive examination was discussed with the Patient or Patient's Authorized Gift Consultant. As applicable, any other physician, advance practice provider, medical student, or other health professional student that will be observing or involved in the sensitive examination for educational or training purposes was discussed with the Patient or Authorized Gift Consultant. The Patient or Authorized Gift Consultant has agreed to proceed with the sensitive examination. (Sensitive examination includes inspection and/or palpation of the breasts, pelvis, prostate and anorectal regions) The mammogram and breast ultrasound was reviewed in detail. PATHOLOGY: [facility]ology reports from [facility] were reviewed and discussed with the Patient. Plan IMPRESSION/PLAN: Alexa Salazar is a 64 year old White female who presents after right breast image guided biopsy. The patient reports the lesion was found on screening mammogram in December 2023. She reports she had no new findings on her self breast exam prior to the biopsy. There is no family history of breast cancer. Postbiopsy, the patient had a large hematoma. This was managed conservatively. Clinical breast examination finds a 4 cm hematoma located 12:00 6 cm from nipple. There is overlying resolving ecchymosis. There is swelling due to the hematoma. There are no associated nipple discharge or palpable lymphadenopathy. The left breast is unremarkable. Pathologic findings are as follows: FINAL DIAGNOSIS Breast, right,right breast 12:00, 3 cm from nipple (ribbon clip), core biopsy: - Benign breast tissue with foamy histiocytes, hemorrhage and giant cells compatible with fat necrosis. Findings are considered both clinically and radiologically concordant. Radiology recommends short-term interval imaging. Right breast diagnostic mammogram and ultrasound were ordered for 6 months. She will follow-up at the imaging. DIAGNOSIS: Encounter Diagnosis ICD-10-CM 1. Abnormal findings on diagnostic imaging of breast R92.8 [facility] DIAGNOSTIC RIGHT US BREAST LTD RIGHT documented in this encounter [facility] 03-30-2024 Note HNO ID: [id number] Author: ALEXA SUAREZ MD Service: ? Author Type: Physician Type: Progress Notes Filed: 03/30/2024 15:18 Note Text: Alexa Suarez MD [facility] [address] [place] [address] HPI: Alexa Salazar is a 64 year old White female who presents after right breast image guided biopsy. The patient reports the lesion was found on screening mammogram in December 2023. She reports she had no new findings on her self breast exam prior to the biopsy. There is no family history of breast cancer. Postbiopsy, the patient had a large hematoma. This was managed conservatively. There are no exam notes on file for this visit. No question data found. Obstetric History No data available PAST MEDICAL HISTORY Diagnosis Date Abnormal mammography Acute gastritis without mention of hemorrhage Angina pectoris (HCC) Corns and callus Coronary atherosclerosis of autologous vein bypass graft Cough Depressive disorder Diarrhea Disorder of teeth and supporting structures pain, having root canal tomorrow 10/09/2011 Dyslipidemia Dyspareunia (CODE) Esophageal reflux Esophagitis, unspecified Fibrocystic disease of breast MARIELLA (generalized anxiety disorder) Hypocalcemia IFG (impaired fasting glucose) Impacted cerumen Orthostatic proteinuria Other and unspecified hyperlipidemia Palpitations Tobacco dependence syndrome Unspecified essential hypertension PAST SURGICAL HISTORY Procedure Laterality Date ARTHROSCOPY KNEE DIAGNOSTIC W/WO SYNOVIAL BX SPX Right 09/13/2006 Arthroscopy, knee - repair right meniscal tear BX OF BREAST; INCISIONAL Right 03/18/2024 COLONOSCOPY FLX DX W/COLLJ SPEC WHEN PFRMD 10/14/2010 Colonoscopy - Dr. Raymond, + polyps EGD TRANSORAL BIOPSY SINGLE/MULTIPLE 08/11/2007 ESOPHAGOGASTRODUODENOSCOPY TRANSORAL DIAGNOSTIC 10/18/2010 EGD - Dr. Raymond, gastritis MOTOR NERVE CONDUCTION TEST TRABECULOPLASTY BY LASER SURGERY Bilateral 03/16/1999 eyes to correct vision FAMILY HISTORY Problem Relation Age of Onset other (HTN [Other]) Mother Hyperlipidemia Mother other (DM2 [Other]) Mother other (BLADDER CN [Other]) Father other (HTN [Other]) Father Hyperlipidemia Father other (DM2 [Other]) Father other (Osteoperosis [Other]) Other paternal aunt Breast Cancer No Family History Ovarian cancer No Family History CURRENT MEDICATIONS: famotidine (PEPCID) 40 mg tablet once daily. losartan (COZAAR) 100 mg tablet once daily. cyanocobalamin (VITAMIN B-12) 1,000 mcg tab Take 1,000 mcg by mouth once daily. ibuprofen (MOTRIN) 600 mg tablet Take 1 tablet by mouth every 6 hours as needed for Pain. isosorbide mononitrate ER (IMDUR) 30 mg 24 hr tablet Take 1 tablet by mouth once daily. Fenofibrate (LOFIBRA) 160 mg tablet Take 1 tablet by mouth once daily. atorvastatin (LIPITOR) 80 mg tablet Take 1 tablet by mouth once daily. metoprolol succinate ER (TOPROL XL) 100 mg Tb24 Take 1 tablet by mouth once daily. lisinopril (ZESTRIL, PRINIVIL) 20 mg tablet Take 1 tablet by mouth once daily. niacin ER (NIASPAN) 500 mg tablet latanoprost (XALATAN) 0.005 % ophthalmic solution Use 1 Drop in both eyes daily at bedtime. Cholecalciferol, Vitamin D3, (VITAMIN D) 1,000 unit cap Take 1,000 Units by mouth twice daily. Magnesium 250 mg tab Take 500 mg by mouth once daily. CALCIUM CARBONATE (TUMS 500 ORAL) Take 750 mg by mouth three times daily. aspirin(ECOTRIN 325 MG TAB) Take one(1) tablet daily. omega-3 fatty acids(FISH OIL 500 MG CAP) Take 4 capsule daily. MULTIVITAMIN TAB Take one(1) tablet daily. cyclobenzaprine (FLEXERIL) 10 mg tablet Take 1 tablet by mouth twice daily as needed. (Patient not taking: Reported on 03/30/2024) CURRENT ALLERGIES: ALLERGIES Allergen Reactions Bactrim [Sulfametho* GI Upset, Other: See Comments Burning of skin, redness Codeine GI Upset, Vomiting Social History Tobacco Use Smoking status: Every Day Current packs/day: 1.50 Average packs/day: 1.5 packs/day for 50.0 years (75.1 ttl pk-yrs) Types: Cigarettes Start date: 03/16/1974 Smokeless tobacco: Never Tobacco comments: smokes 1 1/2 ppd since age 15 years Substance Use Topics Alcohol use: Yes Comment: WEEKLY Drug use: No LABS AND IMAGING: FINAL DIAGNOSIS Breast, right,right breast 12:00, 3 cm from nipple (ribbon clip), core biopsy: - Benign breast tissue with foamy histiocytes, hemorrhage and giant cells compatible with fat necrosis. Review of Systems Constitutional: Negative for chills, fever, malaise/fatigue and weight loss. HENT: Negative for hearing loss. Eyes: Negative for blurred vision. Respiratory: Negative for cough, shortness of breath and wheezing. Cardiovascular: Negative for chest pain, palpitations and leg swelling. Gastrointestinal: Negative for abdominal pain, nausea and vomiting. Musculoskeletal: Positive for back pain. Negative for joint pain, myalgias and neck pain. Neurolo (more content not included)... [facility] 03-23-2024 Telephone encounter Note Summary: results Call placed to patient with breast biopsy results. Verified name and date of . Informed patient that her breast biopsy came back benign/not cancer. Verified follow up appointment and encouraged patient to keep appointment for further recommendations from the doctor. Gale Brewer RN [facility] 03-23-2024 Miscellaneous Notes Summary: results Call placed to patient with breast biopsy results. Verified name and date of . Informed patient that her breast biopsy came back benign/not cancer. Verified follow up appointment and encouraged patient to keep appointment for further recommendations from the doctor. Gale Brewer RN documented in this encounter [facility] 03-18-2024 History of Presen t illness Narrative Radiology Service Progress Note PATIENT NAME: Alexa Salazar DATE OF SERVICE: March 18, 2024 TIME: 1:51 PM PATIENT IDENTITY VERIFICATION COMPLETED USING TWO (2) IDENTIFIERS: Name and Date of confirmed by patient verbally. FALL SCREENING: Has the patient had 2 falls in the last year or 1 fall with injury or currently using an Ambulatory Assistive Device (Walker, Cane, Wheelchair, Crutches, etc.)? No PATIENT GENDER DATA: Female. status: : No status: NO. PATIENT RELEVANT IMPLANT DATA REVIEWED: Not Applicable PATIENT PRESENTS WITH AN IMPLANTABLE OR ATTACHED WAREHOUSE MAN: No RADIOLOGY DEPARTMENT: Ultrasound PERIPHERAL IV DATA: Not applicable SIGNED BY: RT Opal(Po) March 18, 2024 1:51 PM documented in this encounter [facility] 03-18-2024 Note HNO ID: [id number] Author: ZORAIDA WICK RT(Po) Service: ? Author Type: Technologist Type: Progress Notes Filed: 03/18/2024 13:52 Note Text: Radiology Service Progress Note PATIENT NAME: Alexa Salazar DATE OF SERVICE: March 18, 2024 TIME: 1:51 PM PATIENT IDENTITY VERIFICATION COMPLETED USING TWO (2) IDENTIFIERS: Name and Date of confirmed by patient verbally. FALL SCREENING: Has the patient had 2 falls in the last year or 1 fall with injury or currently using an Ambulatory Assistive Device (Walker, Cane, Wheelchair, Crutches, etc.)? No PATIENT GENDER DATA: Female. status: : No status: NO. PATIENT RELEVANT IMPLANT DATA REVIEWED: Not Applicable PATIENT PRESENTS WITH AN IMPLANTABLE OR ATTACHED WAREHOUSE MAN: No RADIOLOGY DEPARTMENT: Ultrasound PERIPHERAL IV DATA: Not applicable SIGNED BY: RT Opal(Po) March 18, 2024 1:[address] [facility] 02-23-2024 History of Presen t illness Narrative Radiology Service Progress Note PATIENT NAME: Alexa Salazar DATE OF SERVICE: February 23, 2024 TIME: 4:14 PM PATIENT IDENTITY VERIFICATION COMPLETED USING TWO (2) IDENTIFIERS: Name and Date of confirmed by patient verbally. FALL SCREENING: Has the patient had 2 falls in the last year or 1 fall with injury or currently using an Ambulatory Assistive Device (Walker, Cane, Wheelchair, Crutches, etc.)? No PATIENT GENDER DATA: Female. status: : No status: NO. PATIENT RELEVANT IMPLANT DATA REVIEWED: Not Applicable PATIENT PRESENTS WITH AN IMPLANTABLE OR ATTACHED WAREHOUSE MAN: No RADIOLOGY DEPARTMENT: Ultrasound PERIPHERAL IV DATA: Not applicable SIGNED BY: RT Paul(Po) February 23, 2024 4:14 PM documented in this encounter [facility] 02-23-2024 Note HNO ID: [id number] Author: NOHEMI ROSSI RT(R) Service: ? Author Type: Technologist Type: Progress Notes Filed: 02/23/2024 16:15 Note Text: Radiology Service Progress Note PATIENT NAME: Alexa Salazar DATE OF SERVICE: February 23, 2024 TIME: 4:14 PM PATIENT IDENTITY VERIFICATION COMPLETED USING TWO (2) IDENTIFIERS: Name and Date of confirmed by patient verbally. FALL SCREENING: Has the patient had 2 falls in the last year or 1 fall with injury or currently using an Ambulatory Assistive Device (Walker, Cane, Wheelchair, Crutches, etc.)? No PATIENT GENDER DATA: Female. status: : No status: NO. PATIENT RELEVANT IMPLANT DATA REVIEWED: Not Applicable PATIENT PRESENTS WITH AN IMPLANTABLE OR ATTACHED WAREHOUSE MAN: No RADIOLOGY DEPARTMENT: Ultrasound PERIPHERAL IV DATA: Not applicable SIGNED BY: JEFRY Miller) February 23, 2024 4:[address] [facility] 02-16-2024 History of Presen t illness Narrative Radiology Service Progress Note PATIENT NAME: Alexa Salazar DATE OF SERVICE: February 16, 2024 TIME: 2:29 PM PATIENT IDENTITY VERIFICATION COMPLETED USING TWO (2) IDENTIFIERS: Name and Date of confirmed by patient verbally. FALL SCREENING: Has the patient had 2 falls in the last year or 1 fall with injury or currently using an Ambulatory Assistive Device (Walker, Cane, Wheelchair, Crutches, etc.)? No PATIENT GENDER DATA: Female. status: : No status: NO. PATIENT RELEVANT IMPLANT DATA REVIEWED: Yes PATIENT PRESENTS WITH AN IMPLANTABLE OR ATTACHED WAREHOUSE MAN: No RADIOLOGY DEPARTMENT: Ultrasound PERIPHERAL IV DATA: Not applicable SIGNED BY: Anna Dunlap RDMS, RVT February 16, 2024 2:29 PM documented in this encounter [facility] 02-16-2024 Note HNO ID: [id number] Author: ANNA DUNLAP RT(R) Service: ? Author Type: Technologist Type: Progress Notes Filed: 02/16/2024 14:30 Note Text: Radiology Service Progress Note PATIENT NAME: Alexa Salazar DATE OF SERVICE: February 16, 2024 TIME: 2:29 PM PATIENT IDENTITY VERIFICATION COMPLETED USING TWO (2) IDENTIFIERS: Name and Date of confirmed by patient verbally. FALL SCREENING: Has the patient had 2 falls in the last year or 1 fall with injury or currently using an Ambulatory Assistive Device (Walker, Cane, Wheelchair, Crutches, etc.)? No PATIENT GENDER DATA: Female. status: : No status: NO. PATIENT RELEVANT IMPLANT DATA REVIEWED: Yes PATIENT PRESENTS WITH AN IMPLANTABLE OR ATTACHED WAREHOUSE MAN: No RADIOLOGY DEPARTMENT: Ultrasound PERIPHERAL IV DATA: Not applicable SIGNED BY: Anna Dunlap RDMS, RVT February 16, 2024 2:[address] [facility] 02-16-2024 History of Presen t illness Narrative Radiology Service Progress Note PATIENT NAME: Alexa Salazar DATE OF SERVICE: February 16, 2024 TIME: 1:21 PM PATIENT IDENTITY VERIFICATION COMPLETED USING TWO (2) IDENTIFIERS: Name and Date of confirmed by patient verbally. FALL SCREENING: Has the patient had 2 falls in the last year or 1 fall with injury or currently using an Ambulatory Assistive Device (Walker, Cane, Wheelchair, Crutches, etc.)? No PATIENT GENDER DATA: Female. status: : No status: N/A PATIENT RELEVANT IMPLANT DATA REVIEWED: Not Applicable PATIENT PRESENTS WITH AN IMPLANTABLE OR ATTACHED WAREHOUSE MAN: No RADIOLOGY DEPARTMENT: Mammography PERIPHERAL IV DATA: Not applicable SIGNED BY: JEFRY Chacon) February 16, 2024 1:21 PM documented in this encounter [facility] 02-16-2024 Note HNO ID: [id number] Author: DAVID AMADOR RT (R) Service: Radiology Author Type: Technologist Type: Progress Notes Filed: 02/16/2024 13:22 Note Text: Radiology Service Progress Note PATIENT NAME: Alexa Salazar DATE OF SERVICE: February 16, 2024 TIME: 1:21 PM PATIENT IDENTITY VERIFICATION COMPLETED USING TWO (2) IDENTIFIERS: Name and Date of confirmed by patient verbally. FALL SCREENING: Has the patient had 2 falls in the last year or 1 fall with injury or currently using an Ambulatory Assistive Device (Walker, Cane, Wheelchair, Crutches, etc.)? No PATIENT GENDER DATA: Female. status: : No status: N/A PATIENT RELEVANT IMPLANT DATA REVIEWED: Not Applicable PATIENT PRESENTS WITH AN IMPLANTABLE OR ATTACHED WAREHOUSE MAN: No RADIOLOGY DEPARTMENT: Mammography PERIPHERAL IV DATA: Not applicable SIGNED BY: RT Ines(Po) February 16, 2024 1:[address] [facility] 12-29-2023 History of Presen t illness Narrative Radiology Service Progress Note PATIENT NAME: Alexa Salazar DATE OF SERVICE: December 29, 2023 TIME: 5:31 PM PATIENT IDENTITY VERIFICATION COMPLETED USING TWO (2) IDENTIFIERS: Name and Date of confirmed by patient verbally. FALL SCREENING: Has the patient had 2 falls in the last year or 1 fall with injury or currently using an Ambulatory Assistive Device (Walker, Cane, Wheelchair, Crutches, etc.)? No PATIENT GENDER DATA: Female. status: : No status: N/A PATIENT RELEVANT IMPLANT DATA REVIEWED: Not Applicable PATIENT PRESENTS WITH AN IMPLANTABLE OR ATTACHED WAREHOUSE MAN: No RADIOLOGY DEPARTMENT: Mammography PERIPHERAL IV DATA: Not applicable SIGNED BY: JEFRY Chacon) December 29, 2023 5:31 PM documented in this encounter [facility] 12-29-2023 Note HNO ID: [id number] Author: DAVID AMADOR RT (R) Service: Radiology Author Type: Technologist Type: Progress Notes Filed: 12/29/2023 17:31 Note Text: Radiology Service Progress Note PATIENT NAME: Alexa Salazar DATE OF SERVICE: December 29, 2023 TIME: 5:31 PM PATIENT IDENTITY VERIFICATION COMPLETED USING TWO (2) IDENTIFIERS: Name and Date of confirmed by patient verbally. FALL SCREENING: Has the patient had 2 falls in the last year or 1 fall with injury or currently using an Ambulatory Assistive Device (Walker, Cane, Wheelchair, Crutches, etc.)? No PATIENT GENDER DATA: Female. status: : No status: N/A PATIENT RELEVANT IMPLANT DATA REVIEWED: Not Applicable PATIENT PRESENTS WITH AN IMPLANTABLE OR ATTACHED WAREHOUSE MAN: No RADIOLOGY DEPARTMENT: Mammography PERIPHERAL IV DATA: Not applicable SIGNED BY: RT Ines(R) December 29, 2023 5:[address] [facility] 12-26-[address] [address] December 26, 2022 PID: [id number] Alexa Salazar [address] [place] [address] Dear Ms. Salazar, We are pleased to [...] report will be kept on file at [facility] as part of your permanent medical record and are available for your continuing care. Thank you for allowing us to help in meeting your health care needs. Sincerely, Dr. Davis Interpreting Radiologist [facility] (Normal over 40) documented in this encounter [facility] 12-25-2022 History of Presen t illness Narrative [...] 2022 5:15 PM documented in this encounter [facility] 12-18-[address] [address] December 18, 2021 PID: [id number] Alexa Salazar [address] [place] [address] Dear Ms. Salazar, We are pleased to [...] report will be kept on file at [facility] as part of your permanent medical record and are available for your continuing care. Thank you for allowing us to help in meeting your health care needs. Sincerely, Dr. Quinn Interpreting Radiologist [facility] (Normal over 40) documented in this encounter [facility] 12-17-2021 History of Presen t illness Narrative [...] IV DATA: Not applicable SIGNED BY: RT Ines(R) December 17, 2021 4:51 PM documented in this encounter [facility] Evaluation note Diagnosis Onset Date Anxiety acute Breast cancer screening by mammogram acute Hyperlipidemia acute Hypertension chronic [facility] Work Phone: Evaluation note* Diagnosis Onset Date Resolution Status Mouth abscess acute Torus palatinus acute Viral gastroenteritis acute Wellness examination acute [facility] Work Phone: Evaluation note* Diagnosis Onset Date Resolution Status Chest pain acute Epigastric abdominal pain ac [place] Panic attack acute [facility] Work Phone: Evaluation note* Diagnosis Fibrocystic breast changes, left- Primary Breast screening Breast screening, unspecified Abnormal finding on breast imaging- Primary Other (abnormal) findings on radiological examination of breast [facility] Diagnosis Fibrocystic breast changes, left- Primary Breast screening Breast screening, unspecified Abnormal finding on breast imaging Other (abnormal) findings on radiological examination of breast [facility] Diagnosis Fibrocystic breast changes, left- Primary Breast screening Breast screening, unspecified Abnormal findings on diagnostic imaging of breast- Primary Other (abnormal) findings on radiological examination of breast [facility] Diagnosis Fibrocystic breast changes, left- Primary Breast screening Breast screening, unspecified Gastroesophageal reflux disease, unspecified whether esophagitis present Tongue burning sensation Glossodynia Tinnitus of right ear Unspecified tinnitus Chronic sore throat Chronic pharyngitis Current smoker Tobacco use disorder Vocal cord nodule Other diseases of vocal cords Localized enlarged lymph nodes Enlargement of lymph nodes Cervicalgia [facility] Diagnostic Procedure Only (Routine) - Authorized Specialty Diagnoses / Procedures Referred By Contac t Referred To Contact [facility] Diagnoses Abnormal finding on breast imaging Procedures US BIOPSY BREAST RIGHT BX BREAST W/DEVICE 1ST LESION ULTRASOUND GUID Alexa Suarez MD [address] [facility] [place] [address] [facility] [address] [place] [address] Referral ID Status Reason Start Date Expiration Date Visits Requested Visits Authorized [id number] Authorized Auto-Generat ed Referral 03/26/2025 1 1 [facility] for referral (narrative)* Diagnostic Procedure Only (Routine) - Closed Specialty Diagnoses / Procedures Referred By Alexis t Referred To Contact [facility] Diagnoses Abnormal finding on breast imaging Procedures US BIOPSY BREAST RIGHT BX BREAST W/DEVICE 1ST LESION ULTRASOUND GUID Alexa Suarez MD [address] [place] [address] [facility] [address] [place] [address] Referral ID Status Reason Start Date Expiration Date V isits Requested Visits Authorized [id number] Closed Auto-Generate d Referral 02/25/2024 03/26/2025 1 1 [facility] for referral (narrative)* Diagnostic Procedure Only (Routine) - Authorized Specialty Diagnoses / Procedures Referred By Alexis t Referred To Contact [facility] Diagnoses Abnormal findings on diagnostic imaging of breast Procedures US BREAST LTD RIGHT US BREAST UNI REAL TIME WITH IMAGE LIMITED Alexa Suarez MD [address] [place] [address] [facility] [address] [place] [address] Referral ID Status Reason Start Date Expiration Date Visits Requested Visits Authorized [id number] Authorized Auto-Generat ed Referral 03/30/2024 04/29/2025 1 1 * Diagnostic Procedure Only (Routine) - Authorized Specialty Diagnoses / Procedures Referred By Alexis t Referred To Contact [facility] Diagnoses Abnormal findings on diagnostic imaging of breast Procedures [facility] DIAGNOSTIC RIGHT DIAGNOSTIC MAMMOGRAPHY COMPUTER-AIDED DETCJ UNI Alexa Suarez MD [address] [place] [address] [facility] [address] [place] [address] Referral ID Status Reason Start Date Expiration Date Visits Requested Visits Authorized [id number] Authorized Auto-Generat ed Referral 03/30/2024 04/29/2025 1 1 [facility] for visit Narrative* Diagnostic Procedure Only (Routine) - Closed Specialty Diagnoses / Procedures Referred By Alexis t Referred To Contact [facility] Diagnoses Abnormal finding on breast imaging Procedures US BIOPSY BREAST RIGHT BX BREAST W/DEVICE 1ST LESION ULTRASOUND Alexa Morgan MD [address] [facility] [place] [place] [address] [facility] [address] [place] [address] Referral ID Status Reason Start Date Expiration Date V isits Requested Visits Authorized [id number] Closed Auto-Generate d Referral 02/25/2024 03/26/2025 1 1 [facility] Summary Purpose Family History No Family History Records FoundNo Family History Records FoundNo Family History Records FoundNo Family History Records Found Advance Directives No Advanced Directives Records FoundNo Advanced Directives Records FoundNo Advanced Directives Records FoundNo Advanced Directives Records Found Chief Complaint and Reason for Visit Chief Complaint medication refills/l abs Reason for Visit Anxiety Breast cancer screening by mammogram Hyperlipidemia Hypertension Chief Complaint Sore throat & a lump on roof of mouth hurts Annual wellness exam labs PE Reason for Visit Mouth abscess Torus palatinus Viral gastroenteritis Wellness examination Chief Complaint Heart Palpation Reason for Visit Chest pain Epigastric abdominal pain Panic attack Additional Source Comments INFORMATION SOURCE (unrecogn ized section and content) DATE CREATED AUTHOR 12/07/2019 [facility] DATE CREATED AUTHOR AUTHOR'S ORGANIZ ATION 12/12/2023 [facility] DATE CREATED AUTHOR AUTHOR'S ORGANIZ ATION 04/02/2024 [facility] DATE CREATED AUTHOR AUTHOR'S ORGANIZ ATION 11/29/2024 [facility] Goals (unrecognized section and content) Goals may be documented in a n alternate sectionGoals may be documented in an alternate sectionGoals may be documented in an alternate section Source Comments (unrecognize d section and content) In the event this informatio n is protected by the Federal Confidentiality of Alcohol and Drug Abuse Patient Records regulations: The Federal rules restrict any use of the information to criminally investigate or prosecute any alcohol or drug abuse patient.[facility] the event this information is protected by the Federal Confidentiality of Alcohol and Drug Abuse Patient Records regulations: The Federal rules restrict any use of the information to criminally investigate or prosecute any alcohol or drug abuse patient.[facility] the event this information is protected by the Federal Confidentiality of Alcohol and Drug Abuse Patient Records regulations: The Federal rules restrict any use of the information to criminally investigate or prosecute any alcohol or drug abuse patient.[facility] the event this information is protected by the Federal Confidentiality of Alcohol and Drug Abuse Patient Records regulations: The Federal rules restrict any use of the information to criminally investigate or prosecute any alcohol or drug abuse patient.[facility] the event this information is protected by the Federal Confidentiality of Alcohol and Drug Abuse Patient Records regulations: The Federal rules restrict any use of the information to criminally investigate or prosecute any alcohol or drug abuse patient.[facility] the event this information is protected by the Federal Confidentiality of Alcohol and Drug Abuse Patient Records regulations: The Federal rules restrict any use of the information to criminally investigate or prosecute any alcohol or drug abuse patient.[facility] the event this information is protected by the Federal Confidentiality of Alcohol and Drug Abuse Patient Records regulations: The Federal rules restrict any use of the information to criminally investigate or prosecute any alcohol or drug abuse patient.[facility] the event this information is protected by the Federal Confidentiality of Alcohol and Drug Abuse Patient Records regulations: The Federal rules restrict any use of the information to criminally investigate or prosecute any alcohol or drug abuse patient.[facility] the event this information is protected by the Federal Confidentiality of Alcohol and Drug Abuse Patient Records regulations: The Federal rules restrict any use of the information to criminally investigate or prosecute any alcohol or drug abuse patient.[facility] the event this information is protected by the Federal Confidentiality of Alcohol and Drug Abuse Patient Records regulations: The Federal rules restrict any use of the information to criminally investigate or prosecute any alcohol or drug abuse patient.[facility] the event this information is protected by the Federal Confidentiality of Alcohol and Drug Abuse Patient Records regulations: The Federal rules restrict any use of the information to criminally investigate or prosecute any alcohol or drug abuse patient.[facility] the event this information is protected by the Federal Confidentiality of Alcohol and Drug Abuse Patient Records regulations: The Federal rules restrict any use of the information to criminally investigate or prosecute any alcohol or drug abuse patient.[facility] Hospital[facility] the event this information is protected by the Federal Confidentiality of Alcohol and Drug Abuse Patient Records regulations: The Federal rules restrict any use of the information to criminally investigate or prosecute any alcohol or drug abuse patient.[facility] Care Teams (unrecognized sec tion and content) Scientist Immunology Relationship Specialty Start Date End Date Philippe Dai APRN.CNP [address] [place] [address] PCP - General Family Medicine 10/27/17 Scientist Immunology Relationship Specialty Start Date End Date Philippe Dai APRN.CNP [address] [place] [address] PCP - General Family Medicine 10/27/17 Team Status: Active Member Role Status Dates No Primary Care Physician Family Provider Active Philippe Dai TOLL GATE TENDER, TOLL GATE TENDER-C Primary Care Provider Active Team Status: Inactive Member Role Status Dates Philippe Dai TOLL GATE TENDER, TOLL GATE TENDER-C Primary Care Pr ovider, Attending Provider, Referring Provider Active Scientist Immunology Relationship Specialty Start Date End Date Philippe Dai APRN.CNP [address] [place] [address] PCP - General Family Medicine 10/27/17 Scientist Immunology Relationship Specialty Start Date End Date Philippe Dai APRN.CNP [address] [place] [address] PCP - General Family Medicine 10/27/17 Team Status: Inactive Member Role Status Dates Philippe Dai NP, TOLL GATE TENDER-C Primary Care Provider, Attend ing Provider Active Scientist Immunology Relationship Specialty Start Date End Date Philippe Dai APRN.CNP [address] [place] [address] PCP - General Family Medicine 10/27/17 Scientist Immunology Relationship Specialty Start Date End Date Philippe Dai, OFFICE SERVICES MANAGER.[employer] PARAFFINER [address] [place], [place] [phone] PCP - General Family Medicine 10/27/17 Scientist Immunology Relationship Specialty Start Date End Date Philippe Dai, OFFICE SERVICES MANAGER.OUTSOLE PARAFFINER [address] [place] [address] PCP - General Family Medicine 10/27/17 Scientist Immunology Relationship Specialty Start Date End Date Philippe Dai, OFFICE SERVICES MANAGER.OUTSOLE PARAFFINER [address] [place] [address] PCP - General Family Medicine 10/27/17 Scientist Immunology Relationship Specialty Start Date End Date Philippe Dai, OFFICE SERVICES MANAGER.OUTSOLE PARAFFINER [address] [place] [address] PCP - General Family Medicine 10/27/17 Scientist Immunology Relationship Specialty Start Date End Date Philippe Dai, OFFICE SERVICES MANAGER.OUTSOLE PARAFFINER [address] [place] [address] PCP - General Family Medicine 10/27/17 Scientist Immunology Relationship Specialty Start Date End Date Philippe Dai, OFFICE SERVICES MANAGER.OUTSOLE PARAFFINER [address] [place] [address] PCP - General Family Medicine 10/27/17 Scientist Immunology Relationship Specialty Start Date End Date Philippe Dai, OFFICE SERVICES MANAGER.OUTSOLE PARAFFINER [address] [place] [address] PCP - General Family Medicine 10/27/17 Reason for Visit (unrecogniz ed section and content) Specialty Diagnoses / Procedures Referred By Contact Referred To Contact [facility] Diagnoses NO CHARGE REPEAT EXAM N63.10 Right breast mass Procedures US BREAST/AXILLA ADULT FEMALE Philippe Dai, OFFICE SERVICES MANAGER.OUTSOLE PARAFFINER [address] [place] [address] Radio Mammo Reflections [facility] [address] [place] [address] Referral ID Status Reason Start Date Expiration Date Visits Re quested Visits Authorized [id number] Closed 02/23/2024 05/23/2024 1 1 Reason Comments Results Reason Comments New Patient Present for results of right breast biopsy, does report a pain, and lump. Reason Comments Sore Throat Patient is here for a sore throat that still persists. This has been going on since July. Prilosec helped with the reflux but not with the sore throat or the burning tongue. She still has the ringing as well. FOR RECORDS PERTAINING TO PATIENTS WHO ARE [...] BE BASED ON THE PRIMARY CLINICAL RECORDS. [employer] provides no warranty or guarantee of the accuracy or completeness of information in this document.
[2024-11-30 22:14] LABS: Hematocrit 37.1 % (37-47); Hemoglobin 13.3 g/dL (12.0-15.0); Immature Granulocytes Count 0.030 X10^3/uL (0.0-0.0); Mean Corp Hgb Conc 35.8 g/dL (32-36); Mean Corpuscular Volume 101.6 fL (81-99); Mean Platelet Vol. 11.0 fl (6.2-12.0); NRBC Flagged by Analyzer 0 % (0-5); Platelet Count 185 K/mm3 (150-450); RBC Distribution Width CV 12.0 % (11.6-14.6); RBC Distribution Width SD 45.1 fl (35.1-43.9); Red Blood Count 3.65 M/mm3 (4.2-5.4); White Blood Count 7.8 K/mm3 (4.4-11.0)
[2024-11-30 22:35] LABS: AST(SGOT) 39 U/L (<=31); Alanine Aminotransfer ALT/SGPT 30 U/L (<=34); Albumin, Serum 4.2 g/dL (3.4-4.8); Alkaline Phosphatase 69 U/L (35-104); Anion Gap 13 (5-15); BUN 15 mg/dL (4-19); BUN/Creat Ratio 16.2 RATIO (10-20); Calcium,Total 9.6 mg/dL (7.6-11.0); Carbon Dioxide 21.1 mmol/L (21.0-32.0); Chloride 105 mmol/L (98-108); Cholesterol 204 mg/dL (<=200); Globulin 2.8 g/dL (2.2-4.2); Glucose 108 mg/dL (70-99); Low Density Lipoprotein Calc. 131 mg/dL; Potassium 4.2 mmol/L (3.3-5.1); Triglycerides 187 mg/dL; Very Low Density Lipoprotein 37 mg/dL (5-40); cholesterol:hdl ratio screen 5.68
== END | disposition home or self-care (01) ==
PROVIDERS: PCP Nurse Practitioner; Referring Provider Nurse Practitioner; Visit Provider Nurse Practitioner
DX: Z00.00 Encounter for general adult medical examination without abnormal findings (principal)
CPT/HCPCS: 80053; 80061; 83036; 85025